=== PATIENT | male | born 1960 | race Caucasian/White ===

== ENCOUNTER → 2017-08-15 05:57 | Outpatient (CLI) | payer OTHER, SELFPAY ==
[2017-08-15 07:50] LABS: AST(SGOT) 24 U/L (15-37); Alanine Aminotransfer ALT/SGPT 52 U/L (16-61); Albumin, Serum 3.9 g/dL (3.2-5.0); Alkaline Phosphatase 75 U/L (45-117); Bilirubin, Direct 0.18 mg/dL (0.00-0.30); Cholesterol 112 mg/dL (200); High Density Lipoprotein 34 mg/dL; Protein, Total 6.9 g/dL (6.4-8.2); Triglycerides 155 mg/dL; Very Low Density Lipoprotein 31 mg/dL (5-40)
== END ==
PROVIDERS: Family Provider Family Medicine; PCP Family Medicine; Visit Provider Physician Assistant Medical
DX: E78.5 Hyperlipidemia, unspecified (principal); Z79.899 Other long term (current) drug therapy
CPT/HCPCS: 36415; 80061; 80076

== ENCOUNTER → 2018-07-06 07:07 | Outpatient (CLI) | payer OTHER, SELFPAY ==
[2018-06-19 16:16] VITALS: BMI 32.5
[2018-07-06 08:49] LABS: AST(SGOT) 20 U/L (15-37); Alanine Aminotransfer ALT/SGPT 57 U/L (16-61); Albumin, Serum 3.9 g/dL (3.2-5.0); Alkaline Phosphatase 73 U/L (45-117); Bilirubin, Direct 0.21 mg/dL (0.00-0.30); Cholesterol 115 mg/dL (200); High Density Lipoprotein 33 mg/dL; Protein, Total 6.9 g/dL (6.4-8.2); Triglycerides 109 mg/dL; Very Low Density Lipoprotein 22 mg/dL (5-40)
== END ==
PROVIDERS: Family Provider Family Medicine; PCP Family Medicine; Referring Provider Internal Medicine Cardiovascular Disease; Visit Provider Internal Medicine Cardiovascular Disease
DX: I25.10 Atherosclerotic heart disease of native coronary artery without angina pectoris (principal); I25.5 Ischemic cardiomyopathy; E78.00 Pure hypercholesterolemia, unspecified; I10 Essential (primary) hypertension; Z95.5 Presence of coronary angioplasty implant and graft
CPT/HCPCS: 36415; 80061; 80076

== ENCOUNTER → 2019-01-27 08:22 | Outpatient (CLI) | payer OTHER, SELFPAY ==
[2018-12-22 15:31] VITALS: BMI 32.2
[2019-01-27 11:57] LABS: AST(SGOT) 21 U/L (15-37); Alanine Aminotransfer ALT/SGPT 44 U/L (16-61); Albumin, Serum 4.1 g/dL (3.2-5.0); Alkaline Phosphatase 77 U/L (45-117); Bilirubin, Direct 0.21 mg/dL (0.00-0.30); Cholesterol 136 mg/dL (200); Globulin 3.2 g/dL (2.2-4.2); High Density Lipoprotein 40 mg/dL; Protein, Total 7.3 g/dL (6.4-8.2); Triglycerides 102 mg/dL; Very Low Density Lipoprotein 20 mg/dL (5-40)
== END ==
PROVIDERS: Family Provider Family Medicine; PCP Family Medicine; Referring Provider Internal Medicine Cardiovascular Disease; Visit Provider Internal Medicine Cardiovascular Disease
DX: E78.00 Pure hypercholesterolemia, unspecified (principal)
CPT/HCPCS: 36415; 80061; 80076

== ENCOUNTER → 2019-12-15 | Outpatient (CLI) | payer OTHER, SELFPAY ==
[2019-08-06 08:55] VITALS: BMI 32.6
[2019-12-15 08:53] LABS: AST(SGOT) 15 U/L (15-37); Alanine Aminotransfer ALT/SGPT 37 U/L (16-61); Alkaline Phosphatase 87 U/L (45-117); Cholesterol 147 mg/dL (200); Globulin 3.3 g/dL (2.2-4.2); High Density Lipoprotein 39 mg/dL; Protein, Total 7.3 g/dL (6.4-8.2); Triglycerides 163 mg/dL; Very Low Density Lipoprotein 33 mg/dL (5-40)
== END | disposition home or self-care (01) ==
LOC: LAB 07:26
PROVIDERS: PCP Family Medicine; Referring Provider Internal Medicine Cardiovascular Disease; Visit Provider Internal Medicine Cardiovascular Disease
DX: E78.00 Pure hypercholesterolemia, unspecified (principal)
CPT/HCPCS: 36415; 80061; 80076

== ENCOUNTER → 2024-03-16 | Outpatient (CLI) | payer OTHER, SELFPAY ==
[2024-03-16 09:21] LABS: ALB/GLOB Ratio 1.1 RATIO (0.9-2.4); AST(SGOT) 17 U/L (15-37); Alanine Aminotransfer ALT/SGPT 45 U/L (16-61); Albumin, Serum 3.8 g/dL (3.2-5.0); Alkaline Phosphatase 92 U/L (45-117); Anion Gap 5 (5-15); BUN 20 mg/dL (7-18); BUN/Creat Ratio 19.6 RATIO (10-20); Calcium,Total 9.3 mg/dL (8.5-10.1); Chloride 108 mmol/L (98-107); Cholesterol 142 mg/dL (200); Creatinine, Serum 1.02 mg/dL (0.70-1.30); EST Glomerular Filtration Rate 78 mL/min (>60); Est Glom Filt Rate - Afr Amer 95 mL/min (>60); Globulin 3.5 g/dL (2.2-4.2); Glucose 132 mg/dL (74-106); High Density Lipoprotein 44 mg/dL; Protein, Total 7.3 g/dL (6.4-8.2); Sodium Level 140 mmol/L (136-145); Triglycerides 92 mg/dL; Very Low Density Lipoprotein 18 mg/dL (5-40)
== END | disposition home or self-care (01) ==
LOC: LAB 08:02
PROVIDERS: PCP Family Medicine; Referring Provider Internal Medicine Cardiovascular Disease; Visit Provider Internal Medicine Cardiovascular Disease
DX: I25.10 Atherosclerotic heart disease of native coronary artery without angina pectoris (principal); I25.2 Old myocardial infarction; Z95.5 Presence of coronary angioplasty implant and graft; E66.9 Obesity, unspecified; I10 Essential (primary) hypertension
CPT/HCPCS: 36415; 80053; 80061

== ENCOUNTER → 2025-02-19 | Outpatient (CLI) | payer OTHER, SELFPAY ==
[2025-02-19 10:34] LABS: AST(SGOT) 31 U/L (<=37); Alanine Aminotransfer ALT/SGPT 73 U/L (<=46); Albumin, Serum 4.3 g/dL (3.4-4.8); Alkaline Phosphatase 88 U/L (40-129); Bilirubin, Direct 0.21 mg/dL (0.00-0.30); Cholesterol 139 mg/dL (<=200); Globulin 2.6 g/dL (2.2-4.2); Low Density Lipoprotein Calc. 86 mg/dL; Triglycerides 95 mg/dL; Very Low Density Lipoprotein 19 mg/dL (5-40); cholesterol:hdl ratio screen 3.96
== END | disposition home or self-care (01) ==
PROVIDERS: PCP Family Medicine; Referring Provider Internal Medicine Cardiovascular Disease; Visit Provider Internal Medicine Cardiovascular Disease
DX: I25.10 Atherosclerotic heart disease of native coronary artery without angina pectoris (principal); E78.00 Pure hypercholesterolemia, unspecified
CPT/HCPCS: 36415; 80061; 80076

== ENCOUNTER → 2025-03-04 | Outpatient (CLI) | payer OTHER, SELFPAY ==
--- OUTSIDE RECORDS SUMMARY | 2025-03-04 06:10 | XMS RPT_ITS | CCD ---
Author Organization [facility] Care Team Providers Care Chemical Packager Name Role Phone LATHA Cary, Ellen Viera Unavailable [phone] Dayna Ng Unavailable Unavailable Dayna Ng Unavailable Unavailable Severino Quiroga Unavailable Unavailable Severino Quiroga Unavailable Unavailable Raymond Lu MD Primary Care Provider [phone] Steven Duron Unavailable Raymond Lu MD Primary Care Provider Steven Duron Unavailable AA NO PCP, NO PCP Primary Care Unavailable HELSOUTH DO~[phone], EUGENIO Munoz Atten ding Unavailable HELSOUTH DO~[phone], EUGENIO Munoz Admit nena Unavailable LORAINE MCNEILL Attending Unavailable Unavailable Primary Care Provider Unavailsimone e Steven Duron MD Unavailable Raymond Lu MD Primary Care Provider Haagen LIGHT RAIL VEHICLE OPERATOR.Leah AMBRIZ Unavailable Suppan LIGHT RAIL VEHICLE OPERATOR.KATINA, Ayesha A Unavailable Suppan LIGHT RAIL VEHICLE OPERATOR.KATINA Ayesha A Unavailable Raymond Lu Referring Unavailable Raymond Lu Primary Care Unavailable Billy Alonso Attending Unavailable Billy Alonso Attending Unavailable Raymond Lu Primary Care Unavailable Billy Alonso Referring Unavailable RAYMOND LU Referring Unavailable RAYMOND LU Primary Care Unavailable RAYMOND MCCRAY JR Attending Unavailable RAYMOND MCCRAY JR Referring Unavailable RAYMOND LU Primary Care Unavailable RAYMOND LU Referring Unavailable RAYMOND LU Primary Care Unavailable RAYMOND LU Primary Care Unavailable STEFANIE MILLER Attending Unavailable RAYMOND LU Referring Unavailable RAYMOND LU Primary Care Unavailable RAMILA YOST Attending Unavailable RAYMOND LU Referring Unavailable RAYMOND LU Primary Care Unavailable RAYMOND LU Attending Unavailable RAYMOND LU Primary Care Unavailable RAYMOND LU Attending Unavailable Allergies Allergy Classification Reported Allergen(s) Allergy Type Date of Onset Reaction(s) Facility (5 sources) Angiotensin Converting Enzyme (Lauren) Inhibitors drug allergy 4 cough [facility] Work Phone: (4 sources) NKDA drug allergy 4 [facility] Work Phone: (17 sources) Lisinopril; Translations: [LISINOPRIL] Drug Allergy 4 Cough [facility] (4 sources) Lisinopril Propensity to adverse reactions 4 [facility] (1 source) Angiotensin Converting Enzyme (Lauren) Inhibitors Drug allergy (disorder) 4 [facility] Repository Medications Current Medications Medication Drug Class(es) Dates Sig (Normalized) Sig (Original) COMPOUNDED PRESCRIPTION (15 sources) Start: 08-27-2013 COMPOUNDED PRESCRIPTION Initiate bilevel @ 18/14 cm of water with back up rate of 12 with humidification mask (per patient preference) optional chin strap (if indicated) and lifetime supplies DX: ALEXANDRA 327.23 1 Device 0 08/27/2013 Active Comment on above: Initiate bilevel @ 1 8/14 cm of water with back up rate of 12 with humidification mask (per patient preference) optional chin strap (if indicated) and lifetime supplies DX: ALEXANDRA 327.23 [id number] 0.3 ml EPINEPHrine 1 mg/ml auto-injector (15 sources) alpha-Adrenergic Agonist, beta-Adrenergic Agonist, Catecholamine Start: 02-11-2021 EPINEPHrine (EPIPEN) 0.3 mg/0.3 mL auto-injector Indications: Allergy to yellow jackets Use as directed 2 Each 1 02/11/2021 Active Comment on above: Use as directed losartan potassium 100 mg oral tablet (20 sources) Angiotensin 2 Receptor Jacquelyn Start: 02-22-2023 take 1 tablet by mouth once daily losartan (COZAAR) 100 mg tablet Indications: Primary hypertension Take 1 tablet by mouth once daily. 90 tablet 3 02/22/2023 Active Start: 08-04-2020 End: 08-27-2021 take 1 tablet by mouth once daily losartan (COZAAR) 100 mg tablet Indications: Primary hypertension Take 1 tablet by mouth once daily. 90 tablet 3 08/27/2021 Active Start: 06-18-2013 take 1 tablet by greg th twice daily COZAAR 25 MG TABS One tablet by mouth twice daily LOSARTAN POTASSIUM [id number] Steven Duron MD Start: 05-08-2013 take 1 tablet by greg th once daily COZAAR 25 MG TABS One tablet by mouth daily LOSARTAN POTASSIUM [id number] Steven Duron MD Comment on above: Take 1 tablet by greg th once daily. molnupiravir 200 mg capsule (2 sources) Start: 05-20-19 End: 05-25-19 take 4 capsules by mouth twice daily molnupiravir 200 mg capsule Indications: COVID-19 Take 4 capsules by mouth two times a day for 5 days. 40 capsule 0 05/20/2023 05/25/2023 Active Comment on above: Take 4 capsules by m outh two times a day for 5 days. sertraline 100 mg oral tablet (20 sources) Serotonin Reuptake Inhibitor Start: 08-06-19 End: 12-17-19 take 1 tablet by mouth once daily sertraline (ZOLOFT) 100 mg tablet Take 1 tablet by mouth once daily. Currently working with provider on adjustments 30 tablet 2 08/21/2024 11/19/2024 Active Comment on above: Take 100 mg by mouth . Take 100 mg by mouth once daily. Currently working with provider on adjustments zolpidem tartrate 10 mg oral tablet (4 sources) gamma-Aminobutyric Acid-ergic Agonist Start: 04-29-19 End: 12-22-19 take 1 tablet by mouth at bedtime Ambien 10 MG tablet 1 tablet at bedtime prior to sleep study at facility Orally as directed for 1 days 04/29/2022 12/22/2023 Discontinued Completed/Discontinued Medications Medication Drug Class(es) Dates Sig (Normalized) Sig (Original) acetaminophen 250 mg / aspirin 250 mg / caffeine 65 mg oral tablet (8 sources) Nonsteroidal Anti-inflammatory Drug, Central Nervous System Stimulant, Methylxanthine Start: 04-26-2013 End: 04-12-2014 EXCEDRIN EXTRA STRENGTH 250-250-65 MG TABS As needed ASPIRIN-ACETAMINO PHEN-CAFFEINE [id number] Steven Duron MD Start: 04-26-2013 EXCEDRIN EXTRA STRENGTH 250-250-65 MG TABS As needed [id number] Steven Duron MD Start: 04-26-2013 End: 04-12-2014 EXCEDRIN EXTRA STRENGTH 250- 250-65 MG TABS As needed [id number] Steven Duron MD aspirin 325 mg oral tablet (20 sources) Nonsteroidal Anti-inflammatory Drug Start: 04-26-2013 take 1 tablet by mouth once daily ASPIRIN 325 MG TABS One tablet by mouth daily ASPIRIN [id number] Steven Duron MD aspirin 325 mg t ablet Take 81 mg by mouth once daily. Changed by cardiology Active take 1 tablet by mouth once sorin y aspirin 81 MG EC tablet Take 81 mg by mouth Daily Active Comment on above: Take 325 mg by mouth once daily. Take 81 mg by mouth once daily. Changed by cardiology ASPIRIN-ACETAMINOPHEN -CAFFEINE (2 sources) Start: 04-26-2013 End: 04-12-2014 EXCEDRIN EXTRA STRENGTH 250-250-65 MG TABS As needed [id number] FFEINE [id number] Steven Duron MD Start: 04-26-2013 EXCEDRIN EXTRA STRENGTH 250-250-65 MG TABS As needed [id number] Steven Duron MD atorvastatin 40 mg oral tablet (20 sources) HMG-CoA Reductase Inhibitor Start: 04-18-2013 take 1 tablet by mouth once daily ATORVASTATIN CALCIUM 40 MG TABS One tablet by mouth daily ATORVASTATIN CALCIUM [id number] Steven Duron MD Comment on above: Take 40 mg by mouth once daily. clopidogrel 75 mg oral tablet (20 sources) P2Y12 Platelet Inhibitor Start: 04-18-2013 take 1 tablet by mouth once daily PLAVIX 75 MG TABS One tablet by mouth daily CLOPIDOGREL BISULFATE [id number] Mil Wheat Shellie MCCAULEY Comment on above: Take 75 mg by mouth once daily. enalapril maleate 5 mg oral tablet (10 sources) Angiotensin Converting Enzyme Inhibitor Start: 04-18-2013 End: 05-08-2013 take 1 tablet by mouth twice daily VASOTEC 5 MG TABS One tablet by mouth twice daily ENALAPRIL MALEATE [id number] Alyssa Chun RN gabapentin 300 mg oral capsule (11 sources) Anti-epileptic Agent Start: 04-12-2014 GABAPENTIN 300 MG CAPS 1-3 tablets by mouth @ night GABAPENTIN [id number] Steven Duron MD Comment on above: Take 300 mg by mouth daily at bedtime. 100-300 each night per [facility] ibuprofen 200 mg oral capsule (10 sources) Nonsteroidal Anti-inflammatory Drug Start: 04-26-2013 End: 04-12-2014 ADVIL 200 MG CAPS as needed takes 2-4 daily IBUPROFEN [id number] Steven Duron MD Start: 04-26-2013 End: 04-12-2014 ADVIL 200 MG CAPS as needed takes 2-4 daily IBUPROFEN [id number] Steven Duron MD metoprolol tartrate 25 mg oral tablet (20 sources) beta-Adrenergic Jacquelyn Start: 04-26-2013 take 1 tablet by mouth twice daily METOPROLOL TARTRATE 25 MG TABS One tablet by mouth twice daily METOPROLOL TARTRATE [id number] Steven Duron MD metoprolol tartr ate, short acting, 25 mg tablet Take 50 mg by mouth two times a day. Dr Alonso adjusted Active take 1 tablet by mouth in the mo rning metoprolol tartrate (Lopressor) 50 MG tablet Take 50 mg by mouth in the morning and 50 mg before bedtime. Active Comment on above: Take 25 mg by mouth twice daily. Take 50 mg by mouth two times a day. Dr Alonso adjusted nitroglycerin 0.4 mg sublingual tablet (10 sources) Nitrate Vasodilator Start: 04-26-2013 NITROSTAT 0.4 MG SUBL 1 tablet under tongue every 5 min up to 3 X NITROGLYCERIN [id number] Steven Duron MD Problems Active Problems Problem Classification Problem Date Documented Da te Episodic/Chronic Coronary atherosclerosis and other heart disease (20 sources) Generalized ischemic myocardial dysfunction; Translations: [Atherosclerotic heart disease of tolowa dee-ni' coronary artery without angina pectoris] Onset: 12-28-2013 04-16-2016 Chronic Coronary atherosclerosis and other heart disease (1 source) Presence of coronary angioplasty implant and graft; Translations: [Presence of coronary angioplasty implant and graft] Onset: 10-16-2024 Episodic Diabetes mellitus without complication (1 source) Hyperglycemia; Translations: [Hyperglycemia, unspecified] 11-21-2023 Episodic Disorders of lipid metabolism (20 sources) Hyperlipidemia; Translations: [Hyperlipidemia, unspecified] Onset: 04-26-2013 04-26-2013 Chronic Essential hypertension (20 sources) Essential hypertension; Translations: [Essential (primary) hypertension] Onset: 12-28-2013 Chronic Immunizations and screening for infectious disease (7 sources) Patient encounter status; Translations: [Encounter for immunization] Episodic Other ear and sense organ disorders (2 sources) Bilateral hearing loss; Translations: [Unspecified hearing loss, bilateral] 06-01-2024 Chronic Other hereditary and degenerative nervous system conditions (19 sources) Restless legs; Translations: [Restless legs syndrome] Onset: 04-04-2017 Chronic Other hereditary and degenerative nervous system conditions (1 source) Restless legs syndrome; Translations: [RLS (restless legs syndrome)] Onset: 02-11-2021 Chronic Other lower respiratory disease (4 sources) Cough; Translations: [Cough, unspecified type] Episodic Other nutritional; endocrine; and metabolic disorders (1 source) Obesity, unspecified; Translations: [Obesity, unspecified] Onset: 10-16-2024 Chronic Other screening for suspected conditions (not mental disorders or infectious disease) (4 sources) Encounter for screening for malignant neoplasm of prostate; Translations: [Elevated prostate specific antigen [PSA]] Onset: 11-21-2023 Episodic Peripheral and visceral atherosclerosis (5 sources) Peripheral vascular disease; Translations: [Peripheral vascular disease, unspecified] Onset: 06-08-2013 06-08-2013 Chronic Residual codes; unclassified (19 sources) Sleep apnea; Translations: [Sleep apnea, unspecified] Onset: 12-28-2013 Chronic Residual codes; unclassified (2 sources) Obstructive sleep apnea syndrome; Translations: [Obstructive sleep apnea (adult) (pediatric)] 12-22-2023 Chronic Residual codes; unclassified (1 source) Obstructive sleep apnea (adult) (pediatric); Translations: [ALEXANDRA treated with BiPAP] Onset: 12-17-2024 Chronic Residual codes; unclassified (1 source) Sleep apnea, unspecified; Translations: [Sleep apnea, unspecified type] Onset: 03-22-2023 Chronic Residual codes; unclassified (2 sources) Insomnia; Translations: [Insomnia, unspecified] 12-22-2023 Episodic Unclassified (5 sources) Body mass index (BMI) 30.0-30.9, adult; Translations: [Body mass index (BMI) 30.0-30.9, adult] Onset: 04-26-2013 04-26-2013 Chronic Unclassified (2 sources) Percutaneous transluminal coronary angioplasty ; Translations: [Coronary angioplasty status] Onset: 04-18-2013 04-18-2013 Unclassified (12 sources) Long-term drug therapy; Translations: [Long-term (current) use of other medications] Onset: 05-03-2013 Resolved: 01-13-2015 01-13-2015 Viral infection (1 source) Disease caused by 2019-nCoV; Translations: [COVID-19] 05-20-2023 Episodic Past or Other Problems Problem Classification Problem Date Documented Da te Episodic/Chronic Allergic reactions (15 sources) Allergy to yellow jacket venom; Translations: [Bee allergy status] Onset: 02-11-2021 02-11-2021 Episodic Coronary atherosclerosis and other heart disease (5 sources) History of myocardial infarction; Translations: [Old myocardial infarction] Onset: 04-18-2013 04-18-2013 Episodic Nonspecific chest pain (10 sources) Chest pain, unspecified; Translations: [Chest pain, unspecified] Onset: 04-18-2013 Resolved: 04-16-2016 04-16-2016 Episodic Other aftercare (3 sources) Long-term (current) use of other medications; Translations: [Other lobsterman (current) drug therapy] Onset: 05-03-2013 Resolved: 01-13-2015 01-13-2015 Episodic Other nutritional; endocrine; and metabolic disorders (6 sources) Body mass index (BMI) 29.0-29.9, adult; Translations: [Body mass index (BMI) 29.0-29.9, adult] Onset: 04-26-2013 10-11-2014 Episodic Unclassified (11 sources) Body mass index (BMI) 27.0-27.9, adult; Translations: [Body mass index (BMI) 29.0-29.9, adult] Onset: 04-26-2013 09-06-2013 Episodic Unclassified (8 sources) FH: Hypertension; Translations: [Body mass index (BMI) 28.0-28.9, adult] Onset: 04-26-2013 12-10-2013 Episodic Results Test Name Value Interpretation Reference Range Facility CNOVon 12-18-2024 CNOV Office Visit (UROLWS ) SILVIATUAN Rodrigues ([id number]) 1960 M Date Time Provider Department 12/18/24 11:00 AM RAMILA YOST UROLTAYA During your visit today, we recorded the following information about you: Thalia Lu LPN 12/18/2024 2:25 PM Signed Verified name and date of . CC Post Void Residual HPI: Tuan Vega is a 64 year old male. The patient is here now for an appointment with TATI Allen MT, PA-COV. Procedure: Explained procedure to patient and verbalizes understanding. Performed a PVR. Patient urinated and instructed to empty bladder as much as possible just prior to having PVR done using bladder ultrasound scanner. Results of scan: >14 mL The patient tolerated the procedure well. Plan: Appointment with Ramila Maya PA-C 12/18/2024 2:25 PM Signed [facility] NEW PATIENT CLINIC NOTE (M) Note was generated by [employer] and edited as appropriate SERVICE DATE: December 18, 2024 NAME: Tuan Vega GENDER: male CHIEF COMPLAINT: The patient is a 64-year-old male with coronary artery disease status post stent placement and obstructive sleep apnea, presenting for evaluation of an elevated PSA. HISTORY OF PRESENT ILLNESS: The patient is a 64-year-old male with coronary artery disease status post stent placement and obstructive sleep apnea, presenting for evaluation of an elevated PSA. Elevated PSA: - Recent PSA level of 2.64, up from 1.64 a year ago. - Denies known family history of prostate cancer. - Reports recent urinary urgency. - Noted darker, malodorous urine when dehydrated. Coronary Artery Disease: - History of a cardiac event 10-11 years ago, treated with a stent. - Currently taking metoprolol. Obstructive Sleep Apnea: - Diagnosed with severe ALEXANDRA, managed with BiPAP. - Reports significant reduction in nocturia since starting BiPAP, from 6-7 times per night to once per night. > We discussed the common causes of urinary frequency and urgency, and restricting water intake In hopes to mitigate the need to urinate, we discussed how this behavior more often worsen the problem not improving it, > We discussed increasing daily water intake to 64-84 oz 7a -7p and try to reduce bladder irritants, caffeine, alcohol and acid foods and drink. > Bladder irritants handout available to patient. LABS: PSA Screening (ng/mL) Date Value 12/14/2024 2.64 11/21/2023 1.58 06/12/2013 0.53 No results found for: TESTOST Hematocrit (%) Date Value 12/14/2024 45.3 11/21/2023 41.9 03/25/2022 43.0 07/30/2020 42.5 02/19/2015 41.1 PSA Screening (ng/mL) Date Value 12/14/2024 2.64 11/21/2023 1.58 06/12/2013 0.53 Creatinine Date Value Ref Range Status 12/14/2024 0.93 0.73 - 1.22 mg/dL Final 11/21/2023 0.97 0.73 - 1.22 mg/dL Final 03/25/2022 0.93 0.73 - 1.22 mg/dL Final MEDICATIONS: CPAP/BIPAP/OTHER Auto biPAP IPAP max 20, EPAP min 10, PS 4 cmH2O [facility] aspirin, enteric coated (ASPIRIN, ENTERIC COATED) 81 mg EC tablet Take 81 mg by mouth once daily. sertraline (ZOLOFT) 100 mg tablet Take 1 tablet by mouth once daily. Currently working with provider on adjustments losartan (COZAAR) 100 mg tablet Take 1 tablet by mouth once daily. EPINEPHrine (EPIPEN) 0.3 mg/0.3 mL auto-injector Use as directed clopidogrel 75 mg tablet Take 75 mg by mouth once daily. atorvastatin 40 mg tablet Take 40 mg by mouth once daily. metoprolol tartrate, short acting, 25 mg tablet Take 50 mg by mouth two times a day. Dr Alonso adjusted PAST MEDICAL HISTORY: PAST MEDICAL HISTORY Diagnosis Date CAD (coronary artery disease) Dr. Duron HTN (hypertension) Hyperlipidemia Lung nodule unchanged in over 2 years ALEXANDRA (obstructive sleep apnea) Bipap ALEXANDRA treated with BiPAP RLS (restless legs syndrome) PAST SURGICAL HISTORY: PAST SURGICAL HISTORY Procedure Laterality Date STENT PLACEMENT Mar 2013 right coronary artery FAMILY HISTORY: FAMILY HISTORY Problem Relation Age of Onset Hypertension Mother Hypertension Father Obstructive Sleep Apnea Father No Known Problems Sister No Known Problems Brother No Known Problems Brother Hypertension Maternal Grandmother No Known Problems Maternal Grandfather No Known Problems Paternal Grandmother Glaucoma Paternal Grandfather SOCIAL HISTORY: Social Connections: Unknown (05/20/2023) Social Connection and Isolation Panel Frequency of Communication with Friends and Family: More than three times a week Frequency of Social Gatherings with Friends and Family: Three times a week Attends [employer] Services: Patient declined Active Member of Clubs or Organizations: Patient declined Attends Club or Organization Meetings: Patient declined Marital Status: REVIEW OF SYSTEMS: Ge (more content not included)... Normal [facility] CNOVon 12-17-2024 CNOV Office Visit (SLEWST ) TUAN VEGA ([id number]) 1960 M Date Time Provider Department 12/17/24 9:00 AM STEFANIE MILLER During your visit today, we recorded the following information about you: Pulse Respiration Blood pressure Weight 79/minute 16/minute 127/75 109.3 kg Stefanie Miller APRN.STONECUTTER ASSISTANT 12/17/2024 10:15 AM Addendum [facility] New Patient Evaluation PATIENT NAME: Tuan Vega DATE OF SERVICE: December 16, 2024 Recording using ambient AI software for draft documentation of the visit was discussed with the patient/authorized customer retention representative; all questions welcomed and answered. Patient/authorized customer retention representative agreed to proceed CONSULTING PROVIDER: No referring provider defined for this encounter. REASON FOR VISIT: ALEXANDRA HPI: The patient is a 64-year-old male with a history of severe ALEXANDRA, presenting for an annual visit to obtain biPAP supplies. His Sleep physician retired. The patient has been using an auto biPAP machine with a full face mask nightly, averaging 9 hours and 18 minutes of use per night. He reports significant improvement in sleep quality, noting a reduction in nocturnal awakenings from 5-6 times per night to once per night since starting PAP therapy about 10 yrs ago. He denies any issues with the current PAP settings and is accustomed to the equipment, stating, I use it every day, I even take a nap with it. He inquires about the replacement schedule for PAP machines, noting that his current machine is not yet 5 years old. He hopes not to need another diagnostic study, had one in the last few years with prior [facility], found it extremely difficult to sleep w/o PAP. Previously had biPAP ST, now has auto biPAP. The patient has a history of RLS. Initially diagnosed with PLMs during a sleep study. No issue with nocturnal leg movements at home. He reports experiencing discomfort in his legs, particularly during long car rides and flights, which necessitates movement for relief. Compression socks and being able to recline and stretch out his legs on a flight have helped. He has been taking sertraline 100 mg at bedtime, prescribed for active mind, and expresses a desire to reduce the dosage. He also mentions previous use of gabapentin, which he discontinued due to grogginess, especially when taken with metoprolol. He has been consistently taking a magnesium supplement, Breakthrough Magnesium, daily, as recommended by a chiropractor for back pain. The patient denies excessive daytime sleepiness, sleep paralysis, sleep hallucinations, or acting out dreams. Patient Questionnaires Sleep Scores 05/20/2023 PROMIS Global Health - (T-Scores - the mean of general population = 50. Five points is a clinically meaningful difference.) Physical T-Score 44.9 Mental T-Score 53.3 PAST TREATMENTS: biPAP IPAP max 20, EPAP min 10, PS 4 cmH2O DME just switched from [facility] to [facility] Residual AHI 0.8 Uses 9.25 hrs every night Used 30 out of last 30 days See scanned copy of compliance report in chart PRIOR SLEEP STUDIES: 07/19/13 PSG: AHI 41.8 (1/3 of events were central per Dr Mccray's reread back in 2013) 07/31/13 PAP titration: switched to biPAP due to CPAP intolerance, start with biPAP ST 18/14 cmH2O with BUR 12 but might need increased PAST MEDICAL HISTORY Diagnosis Date CAD (coronary artery disease) Dr. Duron HTN (hypertension) Hyperlipidemia Lung nodule unchanged in over 2 years ALEXANDRA (obstructive sleep apnea) Bipap PAST SURGICAL HISTORY Procedure Laterality Date STENT PLACEMENT Mar 2013 right coronary artery ACTIVE PROBLEM LIST Cad (Coronary Artery Disease) Htn (Hypertension) Hyperlipidemia Alexandra Treated With Bipap Rls (Restless Legs Syndrome) Allergy to Yellow Jackets Allergies As of Date: 12/17/2024 Allergen Noted Reaction LISINOPRIL 06/25/2013 Cough Fully Assessed 12/17/2024 CURRENT MEDICATIONS: aspirin, enteric coated (ASPIRIN, ENTERIC COATED) 81 mg EC tablet Take 81 mg by mouth once daily. sertraline (ZOLOFT) 100 mg tablet Take 1 tablet by mouth once daily. Currently working with provider on adjustments losartan (COZAAR) 100 mg tablet Take 1 tablet by mouth once daily. EPINEPHrine (EPIPEN) 0.3 mg/0.3 mL auto-injector Use as directed clopidogrel 75 mg tablet Take 75 mg by mouth once daily. atorvastatin 40 mg tablet Take 40 mg by mouth once daily. metoprolol tartrate, short acting, 25 mg tablet Take 50 mg by mouth two times a day. Dr Alonso adjusted CPAP/BIPAP/OTHER Auto biPAP IPAP max 20, EPAP min 10, PS 4 cmH2O [facility] Review of Systems Constitutional: (-) insomnia, (-) excessive daytime sleepiness Neurological: (+) restless legs, (-) dream enactment behavior, (-) sleep paralysis, (-) sleep-related hallucinations Genitourinary: (+) nocturia SOCIAL (more content not included)... Normal [facility] 12-17-2024 [facility] Telephone (SLEWST) TUAN VEGA ([id number]) 1960 M Date Time Provider Department 12/17/24 STEFANIE MILLER During your visit today, we recorded the following information about you: Sarah Martinez LPN 12/17/2024 9:44 AM Signed Called [facility] and requested Sleep Study results completed by them. Will be faxing results to us. MAYRA Cortes Barbara, LPN 12/17/2024 10:03 AM Signed Received [facility] sleep study results. Scanned into Pt chart. Sarah Martinez LPN Allergies As of Date: 12/17/2024 Noted Allergy Reaction LISINOPRIL 06/25/2013 3 - Cough Comments: LAUREN cough Date Reviewed: 12/17/2024 Reviewed by: Sarah Martinez LPN - Fully Assessed Reason for Visit: Results [95] Cmt: [facility] Sleep Study Prescriptions as of 12/17/2024 - CPAP/BIPAP/OTHER Auto biPAP IPAP max 20, EPAP min 10, PS 4 cmH2O [facility] - aspirin, enteric coated (ASPIRIN, ENTERIC COATED) 81 mg EC tablet Take 81 mg by mouth once daily. - sertraline (ZOLOFT) 100 mg tablet Take 1 tablet by mouth once daily. Currently working with provider on adjustments - losartan (COZAAR) 100 mg tablet Take 1 tablet by mouth once daily. - EPINEPHrine (EPIPEN) 0.3 mg/0.3 mL auto-injector Use as directed - clopidogrel 75 mg tablet Take 75 mg by mouth once daily. - atorvastatin 40 mg tablet Take 40 mg by mouth once daily. - metoprolol tartrate, short acting, 25 mg tablet Take 50 mg by mouth two times a day. 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 Telephone (SLEWST) TUAN VEGA ([id number]) 1960 Date Time Provider Department 12/17/24 STEFANIE MILLER During your visit today, we recorded the following information about you: Sarah Martinez LPN 12/17/2024 1:19 PM Signed Faxed mask/supply order to [facility]. Sarah Martinez LPN Allergies As of Date: 12/17/2024 Noted Allergy Reaction LISINOPRIL 06/25/2013 3 - Cough Comments: LAUREN cough Date Reviewed: 12/17/2024 Reviewed by: Sarah Martinez LPN - Fully Assessed Prescriptions as of 12/17/2024 - CPAP/BIPAP/OTHER Auto biPAP IPAP max 20, EPAP min 10, PS 4 cmH2O [facility] - aspirin, enteric coated (ASPIRIN, ENTERIC COATED) 81 mg EC tablet Take 81 mg by mouth once daily. - sertraline (ZOLOFT) 100 mg tablet Take 1 tablet by mouth once daily. Currently working with provider on adjustments - losartan (COZAAR) 100 mg tablet Take 1 tablet by mouth once daily. - EPINEPHrine (EPIPEN) 0.3 mg/0.3 mL auto-injector Use as directed - clopidogrel 75 mg tablet Take 75 mg by mouth once daily. - atorvastatin 40 mg tablet Take 40 mg by mouth once daily. - metoprolol tartrate, short acting, 25 mg tablet Take 50 mg by mouth two times a day. 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 Please set him up with urology Rest of labs are ok Estelle Gutierrez LPN 12/17/2024 8:37 AM Signed LEFT MESSAGE FOR PATIENT TO CALL BACK /Suzanne Christensen LPN, RN 12/17/2024 1:58 PM Signed Patient notified of results and provider's instructions. Patient verbalizes understanding. Suzanne Mason RN Allergies As of Date: 12/15/2024 Noted Allergy Reaction LISINOPRIL 06/25/2013 3 - Cough Comments: LAUREN cough Date Reviewed: 12/14/2024 Reviewed by: Marilia Jara LPN - Fully Assessed Reason for Visit: Results [95] Primary Visit Diagnosis:Elevated PSA [R97.20] Order(s):CONSULT TO UROLOGY [9041] Order #: [id number]: 1 FUTURE Prescriptions as of 12/17/2024 - CPAP/BIPAP/OTHER Auto biPAP IPAP max 20, EPAP min 10, PS 4 cmH2O [facility] - aspirin, enteric coated (ASPIRIN, ENTERIC COATED) 81 mg EC tablet Take 81 mg by mouth once daily. - sertraline (ZOLOFT) 100 mg tablet Take 1 tablet by mouth once daily. Currently working with provider on adjustments - losartan (COZAAR) 100 mg tablet Take 1 tablet by mouth once daily. - EPINEPHrine (EPIPEN) 0.3 mg/0.3 mL auto-injector Use as directed - clopidogrel 75 mg tablet Take 75 mg by mouth once daily. - atorvastatin 40 mg tablet Take 40 mg by mouth once daily. - metoprolol tartrate, short acting, 25 mg tablet Take 50 mg by mouth two times a day. 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] 02/11/2021 Encounter Status:Closed by SUZANNE MASON on 12/17/24 Normal [facility] CBC W Auto Differential pane l (Bld)on 12-14-2024 Basophils (Bld) [#/Vol] 0.03 10*3/uL Normal <0.11 [facility] Comment on above: Order Comment: Speci men Type: BLOOD SPECIMENOrdering Facility: [facility] Address: [address] [place] [address] [place] [address] Performed By: #### 5 7021-8 ####[facility] LABCLIA [id number] [place] [address] [place] Basophils/100 WBC (Bld) 0.3 % Normal [facility] Comment on above: Order Comment: Speci men Type: BLOOD SPECIMENOrdering Facility: [facility] Address: [address] [place] [address] Performed By: #### 5 7021-8 ####[facility] LABCLIA [id number] [place] [address] [place] Differential cell count method Nom (Bld) Auto Normal [facility] Comment on above: Order Comment: Speci men Type: BLOOD SPECIMENOrdering Facility: [facility] Address: [address] [place] [address] Performed By: #### 5 7021-8 ####[facility] LABCLIA [id number] [place] [address] [place] Eosinophils (Bld) [#/Vol] 0.11 10*3/uL Normal <0.46 [facility] Comment on above: Order Comment: Speci men Type: BLOOD SPECIMENOrdering Facility: [facility] Address: [address] [place] [address] Performed By: #### 5 7021-8 ####[facility] LABCLIA [id number] [place] [address] [place] Eosinophils/100 WBC (Bld) 1.1 % Normal [facility] Comment on above: Order Comment: Speci men Type: BLOOD SPECIMENOrdering Facility: [facility] Address: [address] [place] [address] Performed By: #### 5 7021-8 ####[facility] LABCLIA [id number] [place] [address] [place] Erythrocyte distribution width (RBC) [Ratio] 12.7 % Normal 11.5-15.0 [facility] Comment on above: Order Comment: Speci men Type: BLOOD SPECIMENOrdering Facility: [facility] Address: [address] [place] [address] Performed By: #### 5 7021-8 ####[facility] LABCLIA [id number] [place] [address] [place] Hematocrit (Bld) [Volume fraction] 45.3 % Normal 39.0-51.0 [facility] Comment on above: Order Comment: Speci men Type: BLOOD SPECIMENOrdering Facility: [facility] Address: [address] [place] [address] Performed By: #### 5 7021-8 ####[facility] LABIA [id number] [place] [address] [place] Hemoglobin (Bld) [Mass/Vol] 15.1 g/dL Normal 13.0-17.0 [facility] Comment on above: Order Comment: Speci men Type: BLOOD SPECIMENOrdering Facility: [facility] Address: [address] [place] [address] Performed By: #### 5 7021-8 ####[facility] LABIA [id number] [place] [address] [place] Immature granulocytes (Bld) [#/Vol] 0.07 10*3/uL Normal <0.10 [facility] Comment on above: Order Comment: Speci men Type: BLOOD SPECIMENOrdering Facility: [facility] Address: [address] [place] [address] Performed By: #### 5 7021-8 ####[facility] LABIA [id number] [place] [address] [place] Immature granulocytes/100 WBC (Bld) 0.7 % Normal [facility] Comment on above: Order Comment: Speci men Type: BLOOD SPECIMENOrdering Facility: [facility] Address: [address] [place] [address] Performed By: #### 5 7021-8 ####[facility] LABIA [id number] [place] [address] [place] Lymphocytes (Bld) [#/Vol] 1.92 10*3/uL Normal 1.00-4.00 [facility] Comment on above: Order Comment: Speci men Type: BLOOD SPECIMENOrdering Facility: [facility] Address: [address] [place] [address] Performed By: #### 5 7021-8 ####[facility] LABIA [id number] [place] [address] [place] Lymphocytes/100 WBC (Bld) 19.4 % Normal [facility] Comment on above: Order Comment: Speci men Type: BLOOD SPECIMENOrdering Facility: [facility] Address: [address] [place] [address] Performed By: #### 5 7021-8 ####[facility] [id number] [place] [address] [place] MCH (RBC) [Entitic mass] 30.4 pg Normal 26.0-34.0 [facility] Comment on above: Order Comment: Speci men Type: BLOOD SPECIMENOrdering Facility: [facility] Address: [address] [place] [address] Performed By: #### 5 7021-8 ####[facility] [id number] [place] [address] [place] MCHC (RBC) [Mass/Vol] 33.3 g/dL Normal 30.5-36.0 [facility] Comment on above: Order Comment: Speci men Type: BLOOD SPECIMENOrdering Facility: [facility] Address: [address] [place] [address] Performed By: #### 5 7021-8 ####[facility] [id number] [place] [address] [place] MCV (RBC) [Entitic vol] 91.3 fL Normal 80.0-100.0 [facility] Comment on above: Order Comment: Speci men Type: BLOOD SPECIMENOrdering Facility: [facility] Address: [address] [place] [address] Performed By: #### 5 7021-8 ####[facility] LABCLIA [id number] [facility] [address] [place] [address] [place] Monocytes (Bld) [#/Vol] 0.91 10*3/uL High <0.87 [facility] Comment on above: Order Comment: Speci men Type: BLOOD SPECIMENOrdering Facility: [facility] Address: [address] [place] [address] Performed By: #### 5 7021-8 ####[facility] LABCLIA [id number] [facility] [address], [facility] [place] Monocytes/100 WBC (Bld) 9.2 % Normal [facility] Comment on above: Order Comment: Speci men Type: BLOOD SPECIMENOrdering Facility: [facility] Address: [address] [place] [address] Performed By: #### 5 7021-8 ####[facility] LABCLIA [id number] [place] [address] [place] Neutrophils (Bld) [#/Vol] 6.87 10*3/uL Normal 1.45-7.50 [facility] Comment on above: Order Comment: Speci men Type: BLOOD SPECIMENOrdering Facility: [facility] Address: [address] [place] [address] Performed By: #### 5 7021-8 ####[facility] LABCLIA [id number] [facility] [address], [facility] [place] Neutrophils/100 WBC (Bld) 69.3 % Normal [facility] Comment on above: Order Comment: Speci men Type: BLOOD SPECIMENOrdering Facility: [facility] Address: [address] [place] [address] Performed By: #### 5 7021-8 ####[facility] LABCLIA [id number] [facility] [address], [facility] [place] Nucleated RBC (Bld) [#/Vol] 10*3/uL Normal <0.01 [facility] Comment on above: Order Comment: Speci men Type: BLOOD SPECIMENOrdering Facility: [facility] Address: [address] [place] [address] Performed By: #### 5 7021-8 ####[facility] LABCLIA [id number] [address] [address] [place] Nucleated RBC/100 WBC (Bld) [Ratio] 0.0 /100 WBC Normal [facility] Comment on above: Order Comment: Speci men Type: BLOOD SPECIMENOrdering Facility: [facility] Address: [address] [place] [address] Performed By: #### 5 7021-8 ####[facility] LABCLIA [id number] [address] [place] [address] [place] Platelet mean volume (Bld) [Entitic vol] 9.9 fL Normal 9.0-12.7 [facility] Comment on above: Order Comment: Speci men Type: BLOOD SPECIMENOrdering Facility: [facility] Address: [address] [place] [address] Performed By: #### 5 7021-8 ####[facility] LABIA [id number] [address] [place] [address] [place] Platelets (Bld) [#/Vol] 288 10*3/uL Normal 150-400 [facility] Comment on above: Order Comment: Speci men Type: BLOOD SPECIMENOrdering Facility: [facility] Address: [address] [place] [address] Performed By: #### 5 7021-8 ####[facility] LABCLIA [id number] [address] [address] [place] RBC (Bld) [#/Vol] 4.96 10*6/uL Normal 4.20-6.00 [facility] Comment on above: Order Comment: Speci men Type: BLOOD SPECIMENOrdering Facility: [facility] Address: [address] [id number] Performed By: #### 5 7021-8 ####[facility] LABIA [id number] [place] [id number] [place] WBC (Bld) [#/Vol] 9.91 10*3/uL Normal 3.70-11.00 [facility] Comment on above: Order Comment: Speci men Type: BLOOD SPECIMENOrdering Facility: [facility] Address: [address] [place] [address] Performed By: #### 5 7021-8 ####[facility] LABIA [id number] [place] [id number] [place] CNCOon 12-14-2024 CNCO Letter Text Normal [facility] CNOVon 12-14-2024 CNOV Office Visit (FAMPWS ) TUAN VEGA ([id number]) 1960 M Date Time Provider Department 12/14/24 10:40 AM [facility] During your visit today, we recorded the following information about you: Pulse Blood pressure Weight 76/minute 106/72 109.3 kg Raymond Lu MD 12/14/2024 11:16 AM Signed We discussed your overall health and current management plan: - Blood Work: I ordered a CBC, CMP, and PSA. These do not require fasting, so you can complete them today if you?d like. Once I receive the results, I will notify you. - Cologuard: You are due for another Cologuard test, as your last one was three years ago. I have placed the order for this. - Medications: - I sent in a refill for sertraline, as you feel it is working well for your restless legs and you are not experiencing any side effects. - Continue taking atorvastatin, aspirin, and Plavix as prescribed. Let me know if you experience any side effects, such as muscle aches from atorvastatin. - Sleep Apnea: Continue using your BiPAP machine, as it seems to be working well and helping you sleep. 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 Your blood pressure looks good, and your cholesterol was checked within the last year and is stable. Follow-Up Plan: - I will see you back in six months for a routine checkup unless any issues arise before then. Please let me know if you have any new concerns or symptoms before your next visit. Raymond Lu MD 12/14/2024 12:58 PM Signed The patient is a 64-year-old male with heart disease, hyperlipidemia, obstructive sleep apnea, and restless legs syndrome, presenting for routine follow-up and laboratory evaluation. HPI Coronary Artery Disease: - No angina, dyspnea, dizziness, or lightheadedness. - Following with cardiology. - Luís is taking aspirin and Plavix. Hyperlipidemia: - No myalgias from atorvastatin. Obstructive Sleep Apnea: - Using BiPAP with good adherence and effective sleep. Restless Leg Syndrome: - Managed with sertraline; no side effects reported. - Previous provider retired; Luís is requesting refill. Colorectal Cancer Screening: - Last Cologuard test was 3 years ago. MEDICATIONS: Current Outpatient Medications Medication Sig aspirin, enteric coated (ASPIRIN, ENTERIC COATED) 81 mg EC tablet Take 81 mg by mouth once daily. losartan (COZAAR) 100 mg tablet Take 1 tablet by mouth once daily. EPINEPHrine (EPIPEN) 0.3 mg/0.3 mL auto-injector Use as directed COMPOUNDED PRESCRIPTION Initiate bilevel @ 18/14 cm of water with back up rate of 12 with humidification mask (per patient preference) optional chin strap (if indicated) and lifetime supplies DX: ALEXANDRA 327.23 clopidogrel 75 mg tablet Take 75 mg by mouth once daily. atorvastatin 40 mg tablet Take 40 mg by mouth once daily. metoprolol tartrate, short acting, 25 mg tablet Take 50 mg by mouth two times a day. Dr Alonso adjusted sertraline (ZOLOFT) 100 mg tablet Take 1 tablet by mouth once daily. Currently working with provider on adjustments No current facility-administered medications for this visit. ALLERGIES: ALLERGIES Allergen Reactions Lisinopril Cough LAUREN cough PAST MEDICAL HISTORY Diagnosis Date CAD (coronary artery disease) Dr. Duron HTN (hypertension) Hyperlipidemia Lung nodule unchanged in over 2 years ALEXANDRA (obstructive sleep apnea) Bipap PAST SURGICAL HISTORY Procedure Laterality Date STENT PLACEMENT Mar 2013 right coronary artery FAMILY HISTORY Problem Relation Age of Onset Hypertension Mother Hypertension Maternal Grandmother SOCIAL HISTORY[1] Reviewed current medications, allergies, past medical history, surgical history, family history and social history today. REVIEW OF SYSTEMS Constitutional: (-) sleep disturbance Cardiovascular: (-) chest pain Respiratory: (-) shortness of breath Neurological: (-) dizziness, (-) lightheadedness Musculoskeletal: (-) myalgia HEALTH MAINTENANCE: Reviewed health maintenance issues today and recommended the following in detail. Colorectal Cancer Screening due on 08/09/2023 LAB REVIEWED: - Lipid panel: Results were reported as normal. VITALS: BP 106/72 Pulse 76 Wt 109.3 kg (241 lb) SpO2 97% BMI 33.14 kg/m? Last 4 Encounter Wt Readings: Date: Wt: 12/14/2024 109.3 kg (241 lb) 06/01/2024 113.4 kg (250 lb) 09/26/2023 111.1 kg (245 lb) 03/22/2023 112.3 kg (247 lb 9.6 oz) PHYSICAL EXAMINATION: General: Alert, well-developed, no acute distress. Neck: No JVD. No carotid bruit. Lungs: Respirations unlabored, clear to auscultation, no wheezes, rales or rhonchi, symmetric air entry. Heart: Regular rate and regular rhythm, S1 and S2 normal, no murmur, no rub or gallop. Abdomen: Soft, non-tender. Extremities: No edema. Pulses: 2+ symmetr (more content not included)... Normal [facility] Comprehensive metabolic 2000 panelon 12-14-2024 Albumin [Mass/Vol] 4.6 g/dL Normal 3.9-4.9 [facility] Comment on above: Order Comment: Speci men Type: BLOOD SPECIMENOrdering Facility: [facility] Address: [address] [place] [address] Performed By: #### 2 4323-8 ####[facility] LABCLIA [id number] [facility] [address] [place] [address] [place] ALP [Catalytic activity/Vol] 95 U/L Normal 38-113 [facility] Comment on above: Order Comment: Speci men Type: BLOOD SPECIMENOrdering Facility: [facility] Address: [address] [place] [address] Performed By: #### 2 4323-8 ####[facility] LABCLIA [id number] [facility] [address] [place] [address] [place] ALT [Catalytic activity/Vol] 37 U/L Normal 10-54 [facility] Comment on above: Order Comment: Speci men Type: BLOOD SPECIMENOrdering Facility: [facility] Address: [address] [place] [address] Performed By: #### 2 4323-8 ####[facility] LABCLIA [id number] [address], [facility] [place] Anion gap [Moles/Vol] 12 mmol/L Normal 8-15 [facility] Comment on above: Order Comment: Speci men Type: BLOOD SPECIMENOrdering Facility: [facility] Address: [address] [place] [address] Performed By: #### 2 4323-8 ####[facility] LABCLIA [id number] [place] [id number] [place] AST [Catalytic activity/Vol] 26 U/L Normal 14-40 [facility] Comment on above: Order Comment: Speci men Type: BLOOD SPECIMENOrdering Facility: [facility] Address: [address] [place], [place] [address] Performed By: #### 2 4323-8 ####[facility] LABCLIA [id number] [address] [address] [place] Bilirubin [Mass/Vol] 1.1 mg/dL Normal 0.2-1.3 [facility] Comment on above: Order Comment: Speci men Type: BLOOD SPECIMENOrdering Facility: [facility] Address: [address] [place] [address] Performed By: #### 2 4323-8 ####[facility] LABCLIA [id number] [address] [address] [place] Calcium [Mass/Vol] 9.7 mg/dL Normal 8.5-10.2 [facility] Comment on above: Order Comment: Speci men Type: BLOOD SPECIMENOrdering Facility: [facility] Address: [address] [place], [place] [address] Performed By: #### 2 4323-8 ####[facility] LABCLIA [id number] [address] [address] [place] Chloride [Moles/Vol] 102 mmol/L Normal 98-107 [facility] Comment on above: Order Comment: Speci men Type: BLOOD SPECIMENOrdering Facility: [facility] Address: [address] [place], [place] [address] Performed By: #### 2 4323-8 ####[facility] LABCLIA [id number] [place] [id number] [place] CO2 [Moles/Vol] 24 mmol/L Normal 22-30 [facility] Comment on above: Order Comment: Speci men Type: BLOOD SPECIMENOrdering Facility: [facility] Address: [address] [place], [place] [address] Performed By: #### 2 4323-8 ####[facility] LABCLIA [id number] [facility] [address] [address] [place] Creatinine [Mass/Vol] 0.93 mg/dL Normal 0.73-1.22 [facility] Comment on above: Order Comment: Speci men Type: BLOOD SPECIMENOrdering Facility: [facility] Address: [address] [place], [place] [id number] Performed By: #### 2 4323-8 ####[facility] LABCLIA [id number] [place] [id number] [place] eGFRcr SerPlBld CKD-EPI 2020 92 mL/min/1.73m??? Normal >=60 [facility] Comment on above: Order Comment: Ziggy gastelum Type: BLOOD SPECIMENOrdering Facility: [facility] Address: [address] [place] [address] Result Comment: Ally mated Glomerular Filtration Rate (eGFR) is calculated using the 2020 CKD-EPI creatinine equation. This equation utilizes serum creatinine, sex, and age as parameters. The creatinine assay has traceable calibration to isotope dilution-mass spectrometry. Refer to KDIGO guidelines for clinical interpretation. In patients with unstable renal function, e.g. those with acute kidney injury, the eGFR may not accurately reflect actual GFR. Performed By: #### 2 4323-8 ####[facility] LABCLIA [id number] [place] [id number] [place] Glucose [Mass/Vol] 89 mg/dL Normal 74-99 [facility] Comment on above: Order Comment: Ziggy gastelum Type: BLOOD SPECIMENOrdering Facility: [facility] Address: [address] [place] [address] Result Comment: The [place] Diabetes Association (ADA) provides guidance for cutoff values for fasting glucose and random glucose. The ADA defines fasting as no caloric intake for at least 8 hours. Fasting plasma glucose results between 100 to 125 mg/dL indicate increased risk for diabetes (prediabetes). Fasting plasma glucose results greater than or equal to 126 mg/dL meet the criteria for diagnosis of diabetes. In the absence of unequivocal hyperglycemia, results should be confirmed by repeat testing. In a patient with classic symptoms of hyperglycemia or hyperglycemic crisis, random plasma glucose results greater than or equal to 200 mg/dL meet the criteria for diagnosis of diabetes. Reference: Standards of Medical Care in Diabetes 2016, [place] Diabetes Association. Diabetes Care. 2016.39(Suppl 1). Performed By: #### 2 4323-8 ####[facility] LABCLIA [id number] [place] [id number] [place] Potassium [Moles/Vol] 4.6 mmol/L Normal 3.7-5.1 [facility] Comment on above: Order Comment: Speci men Type: BLOOD SPECIMENOrdering Facility: [facility] Address: [address] [place] [address] Performed By: #### 2 4323-8 ####[facility] LABCLIA [id number] [address] [address] [place] Protein [Mass/Vol] 7.2 g/dL Normal 6.3-8.0 [facility] Comment on above: Order Comment: Speci men Type: BLOOD SPECIMENOrdering Facility: [facility] Address: [address] [place] [address] Performed By: #### 2 4323-8 ####[facility] LABCLIA [id number] [place] [address] [place] Sodium [Moles/Vol] 138 mmol/L Normal 136-144 [facility] Comment on above: Order Comment: Speci men Type: BLOOD SPECIMENOrdering Facility: [facility] Address: [address] [place] [address] Performed By: #### 2 4323-8 ####[facility] LABCLIA [id number] [place] [address] [place] Urea nitrogen [Mass/Vol] 19 mg/dL Normal 9-24 [facility] Comment on above: Order Comment: Speci men Type: BLOOD SPECIMENOrdering Facility: [facility] Address: [address] [place] [address] Performed By: #### 2 4323-8 ####[facility] LABCLIA [id number] [place] [id number] [place] PSA/PROSTATE SPECIFIC ANTIGE N SCREENINGon 12-14-2024 Prostate specific Ag [Mass/Vol] 2.64 ng/mL High <2.60 [facility] Comment on above: Order Comment: Speci men Type: BLOOD SPECIMENOrdering Facility: [facility] Address: [address] [place] [address] Result Comment: Adam rodrigues PSA test methodology used is the Electrochemiluminescence Immunoassay by [employer]. Total PSA values by differing methodologies cannot be interchanged. For an individual patient, the significance of a PSA level should be interpreted in a broad clinical context, including age, race, family history, digital rectal exam, prostate size, results of prior testing (prostate biopsy, free PSA, PCA3), and use of 5-alpha reductase inhibitors. Considering the high incidence of asymptomatic cancer in the general population that may not pose an ultimate risk to a patient, the decision to recommend urological evaluation or prostate biopsy should be individualized after consideration of all these factors. REFERENCE: Yang Hurt M.D., M.P.H., Jake Valverde M.D., Ph.D., Raymond Fried M.D., Thalia Mccrary, M.P.H., Elly Coronel, Sc.D. Effect of Verification Bias on Screening for Prostate Cancer by Measurement of Prostatic Specific Antigen. N Engl J Med 2003,349:335-42. Performed By: #### P SAS1 ####[facility] LABIA [id number] [address] OF [facility] [place] 10-05-2024 KATINAN Telephone (AZIZA) TUAN VEGA ([id number]) 1960 M Date Time Provider Department 10/05/24 RAYMOND MCCRAY JR During your visit today, we recorded the following information about you: Christine Patel LPN 10/05/2024 10:06 AM Signed LM for patient to see what DME he uses for cpap Christine Patel LPN Allergies As of Date: 10/05/2024 Noted Allergy Reaction LISINOPRIL 06/25/2013 3 - Cough Comments: LAUREN cough Date Reviewed: 06/01/2024 Reviewed by: Sophie Hawkins MA - Fully Assessed Reason for Visit: cpap compliance [Other] Prescriptions as of 10/05/2024 - sertraline (ZOLOFT) 100 mg tablet Take 1 tablet by mouth once daily. Currently working with provider on adjustments - losartan (COZAAR) 100 mg tablet Take 1 tablet by mouth once daily. - EPINEPHrine (EPIPEN) 0.3 mg/0.3 mL auto-injector Use as directed - COMPOUNDED PRESCRIPTION Initiate bilevel @ 18/14 cm of water with back up rate of 12 with humidification mask (per patient preference) optional chin strap (if indicated) and lifetime supplies DX: ALEXANDRA 327.23 - clopidogrel 75 mg tablet Take 75 mg by mouth once daily. - atorvastatin 40 mg tablet Take 40 mg by mouth once daily. - metoprolol tartrate, short acting, 25 mg tablet Take 50 mg by mouth two times a day. Dr Alonso adjusted - aspirin 325 mg tablet Take 81 mg by mouth once daily. 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 Gardner, his neurologist, has retired. Patient has appointment with Dr. Mccray on 10/16/2024. Patient is needing refills on Sertraline. Patient asking if PCP can send in refills enough to get him to his appointment with Dr. Mccray? Patient reports that he takes 100 mg once a day. Please review and advise, JOYCELYN Schofield, Raymond Munoz MD 08/21/2024 1:11 PM Signed sent Sophie Hawkins MA 08/21/2024 3:06 PM Signed Patient informed. Sophie Hawkins MA Allergies As of Date: 08/21/2024 Noted Allergy Reaction LISINOPRIL 06/25/2013 3 - Cough Comments: LAUREN cough Date Reviewed: 06/01/2024 Reviewed by: Sophie Hawkins MA - Fully Assessed Reason for Visit: Medication Request [138] Order(s):sertraline (ZOLOFT) 100 mg tabletTake 1 tablet by mouth once daily. Currently working with provider on adjustmentsDisp: 30 tabletRfl: 2 Prescriptions as of 08/21/2024 - sertraline (ZOLOFT) 100 mg tablet Take 1 tablet by mouth once daily. Currently working with provider on adjustments - losartan (COZAAR) 100 mg tablet Take 1 tablet by mouth once daily. - EPINEPHrine (EPIPEN) 0.3 mg/0.3 mL auto-injector Use as directed - COMPOUNDED PRESCRIPTION Initiate bilevel @ 18/14 cm of water with back up rate of 12 with humidification mask (per patient preference) optional chin strap (if indicated) and lifetime supplies DX: ALEXANDRA 327.23 - clopidogrel 75 mg tablet Take 75 mg by mouth once daily. - atorvastatin 40 mg tablet Take 40 mg by mouth once daily. - metoprolol tartrate, short acting, 25 mg tablet Take 50 mg by mouth two times a day. Dr Alonso adjusted - aspirin 325 mg tablet Take 81 mg by mouth once daily. 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 Currently working with provider on adjustments Medications Discontinued During This Encounter Prescriptions - sertraline (ZOLOFT) 100 mg tablet (Discontinued) Take 100 mg by mouth once daily. Currently working with provider on adjustments Encounter Status:Closed by SOPHIE HAWKINS on 08/21/24 [facility] 06-01-2024 CN Office Visit (FAMKirtWS ) TUAN VEGA ([id number]) 1960 M Date Time Provider Department 06/01/24 3:20 PM RAYMOND LU During your visit today, we recorded the following information about you: Pulse Blood pressure Weight Height 73/minute 126/70 113.4 kg 1.816 m Raymond Lu MD 06/01/2024 3:59 PM Signed Patient presents with: 6 Month Exam HPI: Patient presents today for office visit for routine 6 month follow up. Continue to see cardiology and sleep med HYPERTENSION: does not check his bp at home. No issues with meds. PSYCH: emotions are doing ok. His father is sleeping well ALEXANDRA:will need to switch sleep med. Will have him notify me when due. She just saw her but Dr Gardner who he saw previously is leaving the state. Cpap is working well and sleeping well. HLD:no myalgias. CARDIO:no chest pain or shortness of breath. No edema. MEDICATIONS: Current Outpatient Medications Medication Sig losartan (COZAAR) 100 mg tablet Take 1 tablet by mouth once daily. sertraline (ZOLOFT) 100 mg tablet Take 100 mg by mouth once daily. Currently working with provider on adjustments EPINEPHrine (EPIPEN) 0.3 mg/0.3 mL auto-injector Use as directed COMPOUNDED PRESCRIPTION Initiate bilevel @ 18/14 cm of water with back up rate of 12 with humidification mask (per patient preference) optional chin strap (if indicated) and lifetime supplies DX: ALEXANDRA 327.23 clopidogrel 75 mg tablet Take 75 mg by mouth once daily. atorvastatin 40 mg tablet Take 40 mg by mouth once daily. metoprolol tartrate, short acting, 25 mg tablet Take 50 mg by mouth two times a day. Dr Alonso adjusted aspirin 325 mg tablet Take 81 mg by mouth once daily. Changed by cardiology No current facility-administered medications for this visit. ALLERGIES: ALLERGIES Allergen Reactions Lisinopril Cough LAUREN cough PAST MEDICAL HISTORY Diagnosis Date CAD (coronary artery disease) Dr. Duron HTN (hypertension) Hyperlipidemia Lung nodule unchanged in over 2 years ALEXANDRA (obstructive sleep apnea) Bipap PAST SURGICAL HISTORY Procedure Laterality Date STENT PLACEMENT Mar 2013 right coronary artery FAMILY HISTORY Problem Relation Age of Onset Hypertension Mother Hypertension Maternal Grandmother Social History Tobacco Use Smoking status: Never Smokeless tobacco: Never Substance Use Topics Alcohol use: No Drug use: No Reviewed current medications, allergies, past medical history, surgical history, family history and social history today. REVIEW OF SYSTEMS All other reviewed and negative other than HPI. HEALTH MAINTENANCE: Reviewed health maintenance issues today and recommended the following in detail. Depression Screening Never done Anxiety Screening Never done BP Controlled (<130/80) Never done DTaP,Tdap,Td Vaccine(1 - Tdap) Never done Pneumococcal Vaccine: 50+(1 of 1 - PCV) Never done LDL Cholesterol due on 03/25/2023 Colorectal Cancer Screening - has cologuard Influenza Vaccine(1) due on 11/27/2023 Covid-19 Vaccine(2023- season) due on 11/27/2023 VITALS: BP 126/70 Pulse 73 Ht 181.6 cm (5' 11.5) Wt 113.4 kg (250 lb) SpO2 95% BMI 34.38 kg/m? Last 4 Encounter Wt Readings: Date: Wt: 06/01/2024 113.4 kg (250 lb) 09/26/2023 111.1 kg (245 lb) 03/22/2023 112.3 kg (247 lb 9.6 oz) 03/23/2022 113.9 kg (251 lb) PHYSICAL EXAMINATION: General appearance: Well appearing, alert, in no acute distress, well-hydrated, well nourished. Skin: Skin color, texture, turgor normal, no suspicious rashes or lesions Head: Normocephalic, no masses, lesions, tenderness or abnormalities Lungs: Lungs clear to auscultation. No wheezing, rhonchi, rales Heart: RRR without murmur, gallop, or rubs. No ectopy Abdomen: Normal abdominal exam, Abdomen soft, non-tender. Bowel sounds normal. No masses, organomegaly Extremities: No deformities, edema, skin discoloration, clubbing or cyanosis. Good capillary refill. ASSESSMENT/PLAN: 1. Coronary artery disease involving tolowa dee-ni' heart without angina pectoris, unspecified vessel or lesion type - ICD9: 414.01, ICD10: I25.10 (primary diagnosis) - continue meds. Follow with cardiology. Labs in six months. - COMPLETE BLOOD COUNT AND DIFFERENTIAL - COMPREHENSIVE METABOLIC PANEL - LIPID PANEL BASIC 2. Primary hypertension - ICD9: 401.9, ICD10: I10 - Controlled - Continue current medications 3. Hyperlipidemia, unspecified hyperlipidemia type - ICD9: 272.4, ICD10: E78.5 - Controlled - Continue current medications 4. Sleep apnea, unspecified type - ICD9: 780.57, ICD10: G47.30 - continue cpap. 5. RLS (restless legs syndrome) - ICD9: 333.94, ICD10: G25.81 - stable. 6. Screening for prostate cancer - ICD9: V76.44, ICD10: Z12.5 - PSA/PROSTATE SPECIFIC ANTIGEN SCREENING 7. Screening for depression - ICD9: V79.0, ICD10: Z13. - DEPRESSION SCREE (more content not included)... Normal [facility] Metabolic Prof miguel angel 03-16-2024 Albumin [Mass/Vol] 3.8 g/dL Normal 3.2-5.0 [facility] Comment on above: Performed By: #### L 333.5172, L500.1296 #### [facility] [address] [place], [address] Albumin/Globulin [Mass ratio] 1.1 {ratio} Normal 0.9-2.4 [facility] Comment on above: Performed By: #### L 500.4050, L500.4100 #### [facility] [address] [place], [address] ALK P 92 U/L Normal 45-117 [facility] Comment on above: Performed By: #### L 500.4050, L500.4100 #### [facility] [address] [place], [address] ALT [Catalytic activity/Vol] 45 U/L Normal 16-61 [facility] Comment on above: Performed By: #### L 500.4050, L500.4100 #### [facility] [address] [place], [address] AST [Catalytic activity/Vol] 17 U/L Normal 15-37 [facility] Comment on above: Performed By: #### L 500.4050, L500.4100 #### [facility] [address] [place], [address] Bilirubin [Mass/Vol] 0.80 mg/dL Normal 0.20-1.00 [facility] Comment on above: Result Comment: For patients on eltrombopag therapy, use of Dimension Austin TBIL is not recommended. Performed By: #### L 500.4050, L500.4100 #### [facility] [address] [place], [address] BUN/CRE 19.6 RATIO Normal 10-20 [facility] Comment on above: Performed By: #### L 500.4050, L500.4100 #### [facility] [address] [place], [address] CA,Total 9.3 mg/dL Normal 8.5-10.1 [facility] Comment on above: Performed By: #### L 500.4050, L500.4100 #### [facility] [address] [place], [address] Chloride [Moles/Vol] 108 mmol/L High 98-107 [facility] Comment on above: Performed By: #### L 500.4050, L500.4100 #### [facility] [address] [place], [address] CO2 [Moles/Vol] 27.0 mmol/L Normal 21.0-32.0 [facility] Comment on above: Performed By: #### L 500.4050, L500.4100 #### [facility] [address] [place], [address] Creatinine [Mass/Vol] 1.02 mg/dL Normal 0.70-1.30 [facility] Comment on above: Result Comment: The validity of the calculated GFR GFRAA in patients over 70 years has not been determined. Clinical correlation is essential. Performed By: #### L 500.4050, L500.4100 #### [facility] [address] [place], [address] EST GFR - AA 95 mL/min Normal >60 [facility] Comment on above: Result Comment: Afri can [place] GFR Calc Performed By: #### L 500.4050, L500.4100 #### [facility] [address] [place], [address] GAP 5 Normal 5-15 [facility] Comment on above: Performed By: #### L 500.4050, L500.4100 #### [facility] [address] [place], [address] GFR/1.73 sq M.predicted among non-blacks MDRD (S/P/Bld) [Vol rate/Area] 78 mL/min/{1.73_m2} Normal >60 [facility] Comment on above: Result Comment: Non- GFR Calc Performed By: #### L 500.4050, L500.4100 #### [facility] [address] [place], [address] Globulin (S) [Mass/Vol] 3.5 g/dL Normal 2.2-4.2 [facility] Comment on above: Performed By: #### L 500.4050, L500.4100 #### [facility] [address] [place], [address] Glucose [Mass/Vol] 132 mg/dL High 74-106 [facility] Comment on above: Result Comment: Fast ing Glucose result greater than or equal to 126 mg/dL suggests DIABETES MELLITUS per A.D.A. criteria. Performed By: #### L 500.4050, L500.4100 #### [facility] [address] [place], [address] Potassium [Moles/Vol] 4.0 mmol/L Normal 3.5-5.1 [facility] Comment on above: Performed By: #### L 500.4050, L500.4100 #### [facility] [address] [place], [address] Sodium [Moles/Vol] 140 mmol/L Normal 136-145 [facility] Comment on above: Performed By: #### L 500.4050, L500.4100 #### [facility] [address] [place], [address] T PROT 7.3 g/dL Normal 6.4-8.2 [facility] Comment on above: Performed By: #### L 500.4050, L500.4100 #### [facility] [address] [place], [address] Urea nitrogen [Mass/Vol] 20 mg/dL High 7-18 [facility] Comment on above: Performed By: #### L 500.4050, L500.4100 #### [facility] [address] [place], [address] LDL CHOLESTEROL DIRECT (FOR REMOTE [facility] USE)Ordered By: Kate Santamaria on 03-16-2024 [facility] Lipid ProfileOrdered By: Edel Santamaria on 03-16-2024 Cholesterol [Mass/Vol] 142 mg/dL Normal 200 [facility] Comment on above: Result Comment: <200 mg/dL Desirable 200-240 mg/dL Borderline >240 mg/dL High Risk Performed By: #### L 500.4050, L500.4100 #### [facility] [address] [place], [address] Cholesterol in HDL [Mass/Vol] 44 mg/dL Normal [facility] Comment on above: Result Comment: The drugs N-Acetylcysteine and Metamizole may falsely depress this assay. Reference Range HDL <40 mg/dL Low HDL Cholesterol HDL >or= 60 mg/dL High HDL Cholesterol Performed By: #### L 500.4050, L500.4100 #### [facility] [address] [place], [address] Cholesterol in LDL [Mass/Vol] 80 mg/dL Normal 0-130 [facility] Comment on above: Performed By: #### L 500.4050, L500.4100 #### [facility] [address] [place], [address] Triglyceride [Mass/Vol] 92 mg/dL Normal [facility] Comment on above: Result Comment: The drugs N-Acetylcysteine and Metamizole may falsely depress this assay. Serum Triglycerides Reference Interval Normal <150 mg/dL Borderline high 150 - 199 mg/dL High 200 - 499 mg/dL Very High > or = 500 mg/dL Performed By: #### L 500.4050, L500.4100 #### [facility] [address] [place], [address] Lipid Profileon 03-16-2024 Cholesterol in VLDL [Mass/Vol] 18 mg/dL Normal 5-40 [facility] Comment on above: Performed By: #### L 500.4050, L500.4100 #### [facility] [address] [place], [address] Cardiology Visit Reporton Cardiology Visit Report [facility] [address] [place] [address] OFFICE VISIT Date of Service: 02/06/24 MR#: [id number] Acct: [id number] Name: TUAN VEGA Rep #: [id number] : 1960 Provider: Dr. Billy Alonso MD Age/Sex: 63/M Location: [facility] Status: Signed HPI HPI History of Present Illness Details: This gentleman with history significant for coronary artery disease status post percutaneous intervention at an outside facility in 2013, mild LV systolic dysfunction with previously noted EF of 45%, is here for follow-up visit. Denies any complaints. No chest pains. No shortness of breath. Denies any palpitations, orthopnea, PND or ankle edema. Tolerating atorvastatin well and denies any muscle aches or pains. Intake Vital Signs 11/09/22 14:03 02/06/24 08:00 Height 5 ft 11 in 5 ft 11 in Weight: 244 lb BMI 34.0 BP 130/86 H Blood Pressure Location Lt brachial Position Sitting Respiration 18 Pulse 72 Pulse Source NIBP Intake Visit Reasons: 10 M FU Special Education Inclusion Teacher Required: No Accompanied by: Self Allergies LAUREN Inhibitors Adverse Reaction (Verified 02/06/24 09:32) cough Medications ???Medication ???Instructions ???Recorded ???Confirmed ???Type losartan 100 mg tablet 100 mg PO QDAY #90 tabs 04/23/21 02/06/24 Rx aspirin 81 mg tablet,delayed 81 mg PO DAILY 11/09/22 02/06/24 History release atorvastatin 40 mg tablet 40 mg PO QHS #90 tabs 03/23/23 02/06/24 Rx clopidogrel 75 mg tablet 75 mg PO DAILY #90 tabs 04/08/23 02/06/24 Rx metoprolol tartrate 50 mg tablet 50 mg PO BID #180 tabs 04/08/23 02/06/24 Rx sertraline 100 mg tablet 100 mg PO QHS 02/06/24 02/06/24 History Ejection fraction %: 45 Have you fallen in the past year?: No PFSH Medical History Atherosclerotic heart disease of tolowa dee-ni' coronary artery without angina pectoris Chest pain Essential hypertension Hyperlipemia Hypertension Ischemic cardiomyopathy Old myocardial infarction Peripheral vascular disease, unspecified Presence of stent in coronary artery ( 04/14/13) Pure hypercholesterolemia Surgical History Presence of coronary angioplasty implant and graft ( 04/14/13) Family History Father HLD (hyperlipidemia) Mother Breast cancer Hypertension CAD (coronary artery disease) Hepatitis Dinh's palsy Social History Smoking Status: Never smoker alcohol intake: never substance use type: does not use caffeine: Yes Type: coffee Number of servings: 2 what type of physical activity do you participate in: walking and weight training frequency: 3-4 times per week duration: 15-30 minutes/day seatbelt use: always do you feel safe at home: Yes ROS Const Const: Negative for fatigue, weakness, headache(s) or weight gain ENT ENT: Negative for headache(s), dizziness, Nosebleed/epistaxis or balance problems Cardio Chest Pain: No Palpitations: No Edema: None Muscle aches with walking: None Resp Respiratory: Negative for SOB with activity, SOB at rest or SOB orthopnea SOB lying down GI GI: Negative nausea, vomiting or heartburn Musc Musc: Negative for muscle aches/ myalgia, muscle weakness, joint pain or balance problems Neuro Neuro: Positive for other (numbness in fingers on occasion); Negative for dizziness, lightheadedness, near syncope, syncope, headache(s) or weakness Endo Endo: Negative for fatigue Cardiology Exam Const Appearance: comfortable and no acute distress Nutritional Appearance: well nourished Neck Neck: no JVD Carotids: Negative bruit Chest Auscultation: Bilateral: Clear to Auscultation Cardio Rate: regular rate Rhythm: regular rhythm Heart sounds: S1 normal and S2 normal Neuro General: patient alert, patient awake and patient oriented x3 Extremities Lower Extremity Edema: None: Bilateral Supplemental Info Supplemental Information Echocardiogram: 06/16/2013 Interpretation Summary Mild segmental systolic dysfunction (see wall motion). The estimated ejection fraction is 45 %. Trivial mitral valve insufficiency. Trivial tricuspid valve insufficiency. Trivial aortic valve insufficiency. Trivial pulmonic valve insufficiency. Transmitral Doppler flow suggestive of impaired relaxation of left ventricle EXERCISE TOLERANCE TEST:05/01/2013 The patient exercised on a Rajan protocol for 10 minutes completing stage III and 1 minute of stage IV achieving a peak heart rate of 146 beats per minute (86% predicted maximum heart rate) and a peak blood pressure of 174/68 mmHg and a peak MET capacity of approximately 11 METS. The baseline ECG demonstra (more content not included)... Normal [facility] CBC W Auto Differential pane l (Bld)on 11-21-2023 Basophils (Bld) [#/Vol] 10*3/uL Normal <0.11 [facility] Comment on above: Order Comment: Speci men Type: BLOOD SPECIMEN Ordering Facility: [facility] Address: [address] [place] [address] Performed By: #### 5 7021-8 #### [facility] CLIA [id number] [address] [place] [address] [place] Basophils/100 WBC (Bld) 0.2 % Normal [facility] Comment on above: Order Comment: Speci men Type: BLOOD SPECIMEN Ordering Facility: [facility] Address: [address] [place] [address] Performed By: #### 5 7021-8 #### [facility] CLIA [id number] [address] [place] Differential cell count method Nom (Bld) Auto Normal [facility] Comment on above: Order Comment: Speci men Type: BLOOD SPECIMEN Ordering Facility: [facility] Address: [address] [place] [address] Performed By: #### 5 7021-8 #### [facility] CLIA [id number] [address] [place] [address] [place] Eosinophils (Bld) [#/Vol] 0.16 10*3/uL Normal <0.46 [facility] Comment on above: Order Comment: Speci men Type: BLOOD SPECIMEN Ordering Facility: [facility] Address: [address] [place] [address] Performed By: #### 5 7021-8 #### [facility] CLIA [id number] [address] Eosinophils/100 WBC (Bld) 1.8 % Normal [facility] Comment on above: Order Comment: Speci men Type: BLOOD SPECIMEN Ordering Facility: [facility] Address: [address] [place] [address] Performed By: #### 5 7021-8 #### [facility] CLIA [id number] [address] [place] Erythrocyte distribution width (RBC) [Ratio] 13.2 % Normal 11.5-15.0 [facility] Comment on above: Order Comment: Speci men Type: BLOOD SPECIMEN Ordering Facility: [facility] Address: [address] [place] [address] Performed By: #### 5 7021-8 #### [facility] CLIA [id number] [address] Hematocrit (Bld) [Volume fraction] 41.9 % Normal 39.0-51.0 [facility] Comment on above: Order Comment: Speci men Type: BLOOD SPECIMEN Ordering Facility: [facility] Address: [address] [place] [address] Performed By: #### 5 7021-8 #### [facility] CLIA [id number] [address] [place] Hemoglobin (Bld) [Mass/Vol] 13.5 g/dL Normal 13.0-17.0 [facility] Comment on above: Order Comment: Speci men Type: BLOOD SPECIMEN Ordering Facility: [facility] Address: [address] [place] [address] Performed By: #### 5 7021-8 #### [facility] CLIA [id number] [address] Immature granulocytes (Bld) [#/Vol] 0.05 10*3/uL Normal <0.10 [facility] Comment on above: Order Comment: Speci men Type: BLOOD SPECIMEN Ordering Facility: [facility] Address: [address] [place] [address] Performed By: #### 5 7021-8 #### [facility] CLIA [id number] [address] Immature granulocytes/100 WBC (Bld) 0.6 % Normal [facility] Comment on above: Order Comment: Speci men Type: BLOOD SPECIMEN Ordering Facility: [facility] Address: [address] [place] [address] Performed By: #### 5 7021-8 #### [facility] CLIA [id number] [address] OF [facility] Lymphocytes (Bld) [#/Vol] 1.73 10*3/uL Normal 1.00-4.00 [facility] Comment on above: Order Comment: Speci men Type: BLOOD SPECIMEN Ordering Facility: [facility] Address: [address] [place] [address] Performed By: #### 5 7021-8 #### [facility] CLIA [id number] [address] Lymphocytes/100 WBC (Bld) 20.0 % Normal [facility] Comment on above: Order Comment: Speci men Type: BLOOD SPECIMEN Ordering Facility: [facility] Address: [address] [place] [address] Performed By: #### 5 7021-8 #### [facility] CLIA [id number] [address] STATES [facility] MCH (RBC) [Entitic mass] 30.4 pg Normal 26.0-34.0 [facility] Comment on above: Order Comment: Speci men Type: BLOOD SPECIMEN Ordering Facility: [facility] Address: [address] [place] [address] Performed By: #### 5 7021-8 #### [facility] CLIA [id number] [address] MCHC (RBC) [Mass/Vol] 32.2 g/dL Normal 30.5-36.0 [facility] Comment on above: Order Comment: Speci men Type: BLOOD SPECIMEN Ordering Facility: [facility] Address: [address] [place] [address] Performed By: #### 5 7021-8 #### [facility] CLIA [id number] [address] [place] MCV (RBC) [Entitic vol] 94.4 fL Normal 80.0-100.0 [facility] Comment on above: Order Comment: Speci men Type: BLOOD SPECIMEN Ordering Facility: [facility] Address: [address] [place] [address] Performed By: #### 5 7021-8 #### [facility] CLIA [id number] [address] [place] Monocytes (Bld) [#/Vol] 0.86 10*3/uL Normal <0.87 [facility] Comment on above: Order Comment: Speci men Type: BLOOD SPECIMEN Ordering Facility: [facility] Address: [address] [place] [address] Performed By: #### 5 7021-8 #### [facility] CLIA [id number] [address] Monocytes/100 WBC (Bld) 9.9 % Normal [facility] Comment on above: Order Comment: Speci men Type: BLOOD SPECIMEN Ordering Facility: [facility] Address: [address] [place] [address] Performed By: #### 5 7021-8 #### [facility] CLIA [id number] [address] [place] Neutrophils (Bld) [#/Vol] 5.84 10*3/uL Normal 1.45-7.50 [facility] Comment on above: Order Comment: Speci men Type: BLOOD SPECIMEN Ordering Facility: [facility] Address: [address] [place] [address] Performed By: #### 5 7021-8 #### [facility] CLIA [id number] [address] Neutrophils/100 WBC (Bld) 67.5 % Normal [facility] Comment on above: Order Comment: Speci men Type: BLOOD SPECIMEN Ordering Facility: [facility] Address: [address] [place] [address] Performed By: #### 5 7021-8 #### [facility] CLIA [id number] [address] Nucleated RBC (Bld) [#/Vol] 10*3/uL Normal <0.01 [facility] Comment on above: Order Comment: Speci men Type: BLOOD SPECIMEN Ordering Facility: [facility] Address: [address] [place] [address] Performed By: #### 5 7021-8 #### [facility] CLIA [id number] [address] Nucleated RBC/100 WBC (Bld) [Ratio] 0.0 /[address] [facility] Comment on above: Order Comment: Speci men Type: BLOOD SPECIMEN Ordering Facility: [facility] Address: [address] [place] [address] Performed By: #### 5 7021-8 #### [facility] CLIA [id number] [address] Platelet mean volume (Bld) [Entitic vol] 10.6 fL Normal 9.0-12.7 [facility] Comment on above: Order Comment: Speci men Type: BLOOD SPECIMEN Ordering Facility: [facility] Address: [address] [place] [address] Performed By: #### 5 7021-8 #### [facility] CLIA [id number] [address] [place] Platelets (Bld) [#/Vol] 245 10*3/uL Normal 150-400 [facility] Comment on above: Order Comment: Speci men Type: BLOOD SPECIMEN Ordering Facility: [facility] Address: [address] [place] [address] Result Comment: No c lot detected. Performed By: #### 5 7021-8 #### [facility] CLIA [id number] [address] OF [facility] RBC (Bld) [#/Vol] 4.44 10*6/uL Normal 4.20-6.00 [facility] Comment on above: Order Comment: Speci men Type: BLOOD SPECIMEN Ordering Facility: [facility] Address: [address] [place] [address] Performed By: #### 5 7021-8 #### [facility] CLIA [id number] [address] OF [facility] WBC (Bld) [#/Vol] 8.66 10*3/uL Normal 3.70-11.00 [facility] Comment on above: Order Comment: Speci men Type: BLOOD SPECIMEN Ordering Facility: [facility] Address: [address] [place] [address] Performed By: #### 5 7021-8 #### [facility] CLIA [id number] [address] Comprehensive metabolic 2000 panelon 11-21-2023 Albumin [Mass/Vol] 4.3 g/dL Normal 3.9-4.9 [facility] Comment on above: Order Comment: Speci men Type: BLOOD SPECIMEN Ordering Facility: [facility] Address: [address] [place] [address] Performed By: #### P SAS1, 89704-7, 27328-3 #### [facility] CLIA [id number] [address] ALP [Catalytic activity/Vol] 85 U/L Normal 38-113 [facility] Comment on above: Order Comment: Speci men Type: BLOOD SPECIMEN Ordering Facility: [facility] Address: [address] [place] [address] Performed By: #### P SAS1, 98021-8, 44456-1 #### [facility] CLIA [id number] [address] ALT With P-5'-P [Catalytic activity/Vol] 26 U/L Normal 10-54 [facility] Comment on above: Order Comment: Speci men Type: BLOOD SPECIMEN Ordering Facility: [facility] Address: [address] [place] [address] Performed By: #### P SAS1, , #### [facility] CLIA [id number] [address] STATES OF [facility] Anion gap [Moles/Vol] 9 mmol/L Normal 8-15 [facility] Comment on above: Order Comment: Speci men Type: BLOOD SPECIMEN Ordering Facility: [facility] Address: [address] [place] [address] Performed By: #### P SAS1, , #### [facility] CLIA [id number] [address] STATES OF [facility] AST With P-5'-P [Catalytic activity/Vol] 18 U/L Normal 14-40 [facility] Comment on above: Order Comment: Speci men Type: BLOOD SPECIMEN Ordering Facility: [facility] Address: [address] [place] [address] Performed By: #### P SAS1, , #### [facility] CLIA [id number] [address] [place] Bilirubin [Mass/Vol] 0.8 mg/dL Normal 0.2-1.3 [facility] Comment on above: Order Comment: Speci men Type: BLOOD SPECIMEN Ordering Facility: [facility] Address: [address] [place] [address] Performed By: #### P SAS1, , #### [facility] CLIA [id number] [address] [place] Calcium [Mass/Vol] 9.3 mg/dL Normal 8.5-10.2 [facility] Comment on above: Order Comment: Speci men Type: BLOOD SPECIMEN Ordering Facility: [facility] Address: [address] [place] [address] Performed By: #### P SAS1, 41101-9, 90306-5 #### [facility] CLIA [id number] [address] [place] Chloride [Moles/Vol] 105 mmol/L Normal 98-107 [facility] Comment on above: Order Comment: Speci men Type: BLOOD SPECIMEN Ordering Facility: [facility] Address: [address] [place] [address] Performed By: #### P SAS1, 77924-6, 50771-8 #### [facility] CLIA [id number] [address] [place] CO2 [Moles/Vol] 27 mmol/L Normal 22-30 [facility] Comment on above: Order Comment: Speci men Type: BLOOD SPECIMEN Ordering Facility: [facility] Address: [address] [place] [address] Performed By: #### P SAS1, , 83094-5 #### [facility] CLIA [id number] [address] Creatinine [Mass/Vol] 0.97 mg/dL Normal 0.73-1.22 [facility] Comment on above: Order Comment: Speci men Type: BLOOD SPECIMEN Ordering Facility: [facility] Address: [address] [place] [address] Performed By: #### P SAS1, , 95741-6 #### [facility] CLIA [id number] [address] Creatinine and Glomerular filtration rate.predicted panel (S/P/Bld) 88 mL/min/1.73m??? Normal >=60 [facility] Comment on above: Order Comment: Speci men Type: BLOOD SPECIMEN Ordering Facility: [facility] Address: [address] [place] [address] Result Comment: Ally mated Glomerular Filtration Rate (eGFR) is calculated using the 2020 CKD-EPI creatinine equation. This equation utilizes serum creatinine, sex, and age as parameters. The creatinine assay has traceable calibration to isotope dilution-mass spectrometry. Refer to KDIGO guidelines for clinical interpretation. In patients with unstable renal function, e.g. those with acute kidney injury, the eGFR may not accurately reflect actual GFR. Performed By: #### P CALLY1, , #### [facility] CLIA [id number] [address] [place] [address] [place] Glucose [Mass/Vol] 121 mg/dL High 74-99 [facility] Comment on above: Order Comment: Ziggy gastelum Type: BLOOD SPECIMEN Ordering Facility: [facility] Address: [address] [place] [address] Result Comment: The [place] Diabetes Association (ADA) provides guidance for cutoff values for fasting glucose and random glucose. The ADA defines fasting as no caloric intake for at least 8 hours. Fasting plasma glucose results between 100 to 125 mg/dL indicate increased risk for diabetes (prediabetes). Fasting plasma glucose results greater than or equal to 126 mg/dL meet the criteria for diagnosis of diabetes. In the absence of unequivocal hyperglycemia, results should be confirmed by repeat testing. In a patient with classic symptoms of hyperglycemia or hyperglycemic crisis, random plasma glucose results greater than or equal to 200 mg/dL meet the criteria for diagnosis of diabetes. Reference: Standards of Medical Care in Diabetes 2016, [place] [employer]. Diabetes Care. 2016.39(Suppl 1). Performed By: #### P CALLY1, , #### [facility] CLIA [id number] [address] [place] [address] [place] Potassium [Moles/Vol] 4.7 mmol/L Normal 3.7-5.1 [facility] Comment on above: Order Comment: Ziggy gastelum Type: BLOOD SPECIMEN Ordering Facility: [facility] Address: [address] [place] [address] Performed By: #### P CALLY1, , #### [facility] CLIA [id number] [address] [place] [address] [place] Protein [Mass/Vol] 6.7 g/dL Normal 6.3-8.0 [facility] Comment on above: Order Comment: Ziggy gastelum Type: BLOOD SPECIMEN Ordering Facility: [facility] Address: [address] [place] [address] Performed By: #### P SAS1, , 29045-8 #### [facility] CLIA [id number] [address] [place] [address] [place] Sodium [Moles/Vol] 141 mmol/L Normal 136-144 [facility] Comment on above: Order Comment: Speci men Type: BLOOD SPECIMEN Ordering Facility: [facility] Address: [address] [place] [address] Performed By: #### P SAS1, , 11854-0 #### [facility] CLIA [id number] [address] [place] Urea nitrogen [Mass/Vol] 18 mg/dL Normal 9-24 [facility] Comment on above: Order Comment: Speci men Type: BLOOD SPECIMEN Ordering Facility: [facility] Address: [address] [place] [address] Performed By: #### P SAS1, , #### [facility] CLIA [id number] [address] [place] [address] [place] Magnesium SerPl-mCncon 11-20 Magnesium [Mass/Vol] 2.2 mg/dL Normal 1.7-2.3 [facility] Comment on above: Order Comment: Speci men Type: BLOOD SPECIMEN Ordering Facility: [facility] Address: [address] [place] [address] Performed By: #### P SAS1, , #### [facility] CLIA [id number] [address] [place] [address] [place] PSA/PROSTATE SPECIFIC ANTIGE N SCREENINGon 11-21-2023 Prostate specific Ag [Mass/Vol] 1.58 ng/mL Normal <2.60 [facility] Comment on above: Order Comment: Speci men Type: BLOOD SPECIMEN Ordering Facility: [facility] Address: [address] [place] [address] Result Comment: Tota l PSA test methodology used is the Electrochemiluminescence Immunoassay by [employer]. Total PSA values by differing methodologies cannot be interchanged. Performed By: #### P SAS1, 08373-8, 26697-0 #### [facility] CLIA [id number] [address] [place] [address] [place] GALARZA XR FINGERS(S) RT 1ST DIGI T, THUMB 2+Von 11-11-2022 GALARZA XR FINGERS(S) RT 1ST DIGIT, THUMB 2+V RIGHT THUMB History: Thumb contusion, injury Findings: Three views of the right thumb show no acute fracture, dislocation, periosteal reaction, joint space narrowing, or bone erosion. IMPRESSION: Unremarkable right thumb. Report Dictated on Authenticated by: Pawan Peck On: 11/11/2022 15:49 Read by: PAWAN PECK MD, Date: 11/11/2022 15:49 [facility] No Panel Informationon 03-23 [facility] SPIROMETRY - BASELINE AND PO ST DILATORon 03-23-2022 DLCO (ml/min/mmHg) 25.73 ml/min/mmHg [facility] DLCO/VA (ml/min/mmHg/L) 3.80 ml/min/mmHg/L [facility] ERV BOX (L) 0.96 L [facility] TIA50-40% POST (L/S) 3.95 L/S [facility] YII79-50% PRE (L/S) 4.04 L/S [facility] land [facility] FEV1 PRE (L) 4.10 L [facility] FEV1/FVC POST (%) 84 % [facility] FEV1/[facility] PRE (%) 80 % [facility] FEV1_POST (L) 4.05 L [facility] FRC Box (L) 3.12 L [facility] FVC POST (L) 4.84 L [facility] FVC PRE (L) 5.13 L [facility] IC BOX (L) 3.82 L [facility] PEF POST (L/S) 10.12 L/S [facility] PEF PRE (L/S) 9.99 L/S [facility] RV Box (L) 2.07 L [facility] RV/TLC Box (%) 30 % [facility] T[facility] Box (L) 6.89 L [facility] VA (L) 6.77 L [facility] VC (L) BOX 4.78 L [facility] Lab Report: Lipid Profileon 12-27-2016 Cholesterol 113 mg/dL Invalid Interpretation Code 200 [employer] Work Phone: [phone] HDL Cholesterol 42 mg/dL Invalid Interpretation Code [employer] Work Phone: [phone] LDL Cholesterol 52 mg/dL Invalid Interpretation Code 0-130 [employer] Work Phone: [phone] Triglyceride 96 mg/dL Invalid Interpretation Code [employer] Work Phone: [phone] very low density lipoproteins 19 mg/dL Invalid Interpretation Code 5-40 [employer] Work Phone: [phone] Lab Report: Liver Profileon 12-27-2016 Alanine aminotransferase (ALT) 47 U/L Invalid Interpretation Code 12-78 [employer] Work Phone: [phone] Albumin 3.9 g/dL Invalid Interpretation Code 3.4-5.0 [employer] Work Phone: [phone] Alkaline phosphatase (ALP) 75 U/L Invalid Interpretation Code 45-117 [employer] Work Phone: [phone] ALP enzyme act/vol (Bld) 75 U/L Invalid Interpretation Code 45-117 [employer] Work Phone: [phone] Aspartate aminotransferase (AST) 19 U/L Invalid Interpretation Code 15-37 [employer] Work Phone: [phone] Bilirubin (direct) 0.27 mg/dL Invalid Interpretation Code 0.00-0.30 [employer] Work Phone: [phone] Bilirubin (total) 1.00 mg/dL Invalid Interpretation Code 0.20-1.00 [employer] Work Phone: [phone] Globulin 3.1 g/dL Invalid Interpretation Code 2.3-3.5 [employer] Work Phone: [phone] Protein 7.0 g/dL Invalid Interpretation Code 6.4-8.2 [employer] Phone: [phone] Office Visiton 11-08-2016 Documentation of current medications (procedure) Done Invalid Interpretation Code [employer] Work Phone: [phone] Protein mass conc Done Invalid Interpretation Code [facility] Work Phone: [phone] Tobacco smoking status NHIS Never smoker Invalid Interpretation Code [facility] Work Phone: [phone] Tobacco use CPHS Never smoker Invalid Interpretation Code [facility] Work Phone: [phone] Lab Report: Lipid Profileon 07-22-2016 Cholesterol 120 mg/dL 200 [facility] Work Phone: [phone] HDL Cholesterol 44 mg/dL [facility] Work Phone: [phone] LDL Cholesterol 62 mg/dL 0-130 [facility] Work Phone: [phone] Triglyceride 70 mg/dL [facility] Work Phone: [phone] very low density lipoproteins 14 mg/dL 5-40 [facility] Work Phone: [phone] Lab Report: Liver Profileon 07-22-2016 Alanine aminotransferase (ALT) 53 U/L 12-78 [facility] Work Phone: [phone] Albumin 4.1 g/dL 3.4-5.0 [facility] Work Phone: [phone] Alkaline phosphatase (ALP) 70 U/L Invalid Interpretation Code 45-117 [facility] Work Phone: [phone] ALP enzyme act/vol (Bld) 70 U/L 45-117 [facility] Work Phone: [phone] Aspartate aminotransferase (AST) 23 U/L 15-37 [facility] Work Phone: [phone] Bilirubin (direct) 0.21 mg/dL 0.00-0.30 [facility] Work Phone: [phone] Bilirubin (total) 1.00 mg/dL 0.20-1.00 [facility] Work Phone: [phone] Globulin 3.1 g/dL Invalid Interpretation Code 2.3-3.5 [facility] Work Phone: [phone] Globulin mass conc (S) 3.1 g/dL 2.3-3.5 [facility] Work Phone: [phone] Protein 7.2 g/dL 6.4-8.2 [facility] Work Phone: [phone] Office Visiton 04-14-2016 Dietary management education, guidance, and counseling (procedure) yes Invalid Interpretation Code [facility] Work Phone: [phone] Documentation of current medications (procedure) Done Invalid Interpretation Code [facility] Work Phone: [phone] Clinical Lists Update: [facility]04-09-2016 Left ventricular Ejection fraction 48 % Invalid Interpretation Code [facility] Work Phone: [phone] Office Visiton 04-04-2015 Tobacco use CPHS Never smoker Invalid Interpretation Code [facility] Work Phone: [phone] Office Visiton 04-12-2014 cardiac risk group C Invalid Interpretation Code [facility] Work Phone: [phone] General cardiovascular disease 10Y risk [#] [place] o N/A Invalid Interpretation Code [facility] Work Phone: [phone] Lab Report: [facility] 12-09-19 14 ALK 83 U/L Normal 45-117 [facility] Work Phone: [phone] GE use only - for [employer] import when terms are not otherwise specified 83 U/L Normal 45-117 [facility] Work Phone: [phone] Clinical Lists Update: [facility] 06-15-2013 Anion gap 4 mmol/L Invalid Interpretation Code [facility] Work Phone: [phone] Anion gap 4 molar conc 4 Invalid Interpretation Code [facility] Work Phone: [phone] Anion gap molar conc 4 mmol/L [facility] Work Phone: [phone] BUN/Creatinine Ratio 19.0 mg/mg Invalid Interpretation Code [facility] Work Phone: [phone] Calcium 8.8 mg/dL Invalid Interpretation Code [facility] Work Phone: [phone] Chloride 105 mmol/L Invalid Interpretation Code [facility] Work Phone: [phone] CO2 29.0 mmol/L Invalid Interpretation Code [facility] Work Phone: [phone] CO2 ppres (BldV) 29.0 mmol/L Invalid Interpretation Code [facility] Work Phone: [phone] Creatinine 1.0 mg/dL Invalid Interpretation Code [facility] Work Phone: [phone] Erythrocytes (RBC) 4.62 10*6/uL Invalid Interpretation Code [facility] Work Phone: [phone] Glucose 89 mg/dL Invalid Interpretation Code [facility] Work Phone: [phone] Glucose mass conc 89 mg/dL Invalid Interpretation Code [facility] Work Phone: [phone] Hematocrit (HCT) 40.8 % Invalid Interpretation Code [facility] Work Phone: [phone] Hematocrit Volume Fraction (Bld) 40.8 % [facility] Work Phone: [phone] Hemoglobin mass conc (Bld) 13.6 g/dL Invalid Interpretation Code [facility] Work Phone: [phone] MCH 29.4 pg Invalid Interpretation Code [facility] Work Phone: [phone] MCH Entitic mass (RBC) 29.4 pg [facility] Work Phone: [phone] MCV 88.3 fL Invalid Interpretation Code [facility] Work Phone: [phone] MCV Entitic volume (RBC) 88.3 fL [facility] Work Phone: [phone] Platelets 262 10*3/mm3 Invalid Interpretation Code [facility] Work Phone: [phone] Platelets #/vol (Bld) 262 10*3/mm3 [facility] Work Phone: [phone] Potassium molar conc 3.7 mmol/L Invalid Interpretation Code [facility] Work Phone: [phone] RBC #/vol (Bld) 4.62 10*6/uL [facility] Work Phone: [phone] Sodium 138 mmol/L Invalid Interpretation Code [facility] Work Phone: [phone] Urea nitrogen 19 mg/dL Invalid Interpretation Code [facility] Work Phone: [phone] WBC #/vol (Bld) 8.1 10*3/uL [facility] Work Phone: [phone] WBC (Leukocytes) 8.1 10*3/uL Invalid Interpretation Code [facility] Work Phone: [phone] Replaced Document: Rey CARBONE Observationson 04-26-2013 EKG QRS axis -17 deg Invalid Interpretation Code [facility] Work Phone: [phone] electrocardiogram interpretation Sinus Rhythm -Inferior infarct -age undetermined . ABNORMAL Invalid Interpretation Code [facility] Work Phone: [phone] Interpretation Sinus Rhythm -Inferi or infarct -age undetermined . ABNORMAL Invalid Interpretation Code [facility] Work Phone: [phone] P [place] 14 deg Invalid Interpretation Code [facility] Work Phone: [phone] P wave axis, electrocardiogram 14 deg Invalid Interpretation Code [facility] Work Phone: [phone] VT Interval 162 ms Invalid Interpretation Code [facility] Work Phone: [phone] VT interval, electrocardiogram 162 ms Invalid Interpretation Code [facility] Work Phone: [phone] Pulse (Heart Rate) 407 ms Invalid Interpretation Code [facility] Work Phone: [phone] Pulse (Heart Rate) 71 /min Invalid Interpretation Code [facility] Work Phone: [phone] QRS axis, electrocardiogram -17 deg Invalid Interpretation Code [facility] Phone: [phone] QRS Duration 104 ms Invalid Interpretation Code [facility] Phone: [phone] QRS duration, electrocardiogram 104 ms Invalid Interpretation Code [facility] Phone: [phone] QT Interval new path ms Invalid Interpretation Code [facility] Work Phone: [phone] QT interval, electrocardiogram new path ms Invalid Interpretation Code [facility] Work Phone: [phone] T [place] -43 deg Invalid Interpretation Code [facility] Phone: [phone] T wave axis, electrocardiogram -43 deg Invalid Interpretation Code [facility] Phone: [phone] Clinical Lists Update: Prel[employer] agent 04-17-2013 Erythrocyte distribution width Auto Ratio (RBC) 13.8 % Invalid Interpretation Code [facility] Phone: [phone] Erythrocyte distribution width Ratio (RBC) 13.8 % [facility] Work Phone: [phone] MCHC mass conc (RBC) 34.2 g/dL Invalid Interpretation Code [facility] Work Phone: [phone] MCHC mass conc (RBC) 34.2 g/dL [facility] Work Phone: [phone] Vital Signs Date Time Vital Sign Value Performing Clinician Facility 06-01-2024 15:55-0500 Diastolic blood pressure 70 mm[Hg] Raymond Lu MD Work Phone: [facility] 06-01-2024 15:55-0500 Systolic blood pressure 126 mm[Hg] Raymond Lu MD Work Phone: [facility] 06-01-2024 15:31-0500 Body height 181.6 cm Raymond Lu MD Work Phone: [facility] 06-01-2024 15:31-0500 Body mass index (BMI) [Ratio] 34.38 kg/m2 Raymond Lu MD Work Phone: [facility] 06-01-2024 15:31-0500 Body weight 113.4 kg Raymond Lu MD Work Phone: [facility] 06-01-2024 15:31-0500 Heart rate 73 /min Raymond Lu MD Work Phone: [facility] 06-01-2024 15:31-0500 SaO2% (BldA) [Mass fraction] 95 % Raymond Lu MD Work Phone: [facility] 12-22-2023 09:45-0400 Body height 180.3 cm Loraine Mcneill VEHICLE TECHNICIAN Work Phone: [facility] 12-22-2023 09:45-0400 Body mass index (BMI) [Ratio] 34.73 kg/m2 Loraine Mcneill VEHICLE TECHNICIAN Work Phone: [facility] 12-22-2023 09:45-0400 Body weight 112.95 kg Loraine Mcneill VEHICLE TECHNICIAN Work Phone: [facility] 12-22-2023 09:45-0400 Diastolic blood pressure 90 mm[Hg] Loraine Mcneill VEHICLE TECHNICIAN Work Phone: [facility] 12-22-2023 09:45-0400 Heart rate 64 /min Loraine Mcneill VEHICLE TECHNICIAN Work Phone: [facility] 12-22-2023 09:45-0400 SaO2% (BldA) [Mass fraction] 97 % Loraine Mcneill VEHICLE TECHNICIAN Work Phone: [facility] 12-22-2023 09:45-0400 Systolic blood pressure 142 mm[Hg] Loraine Mcneill VEHICLE TECHNICIAN Work Phone: [facility] 09-26-2023 18:51-0400 Body mass index (BMI) [Ratio] 33.7 kg/m2 Raymond Lu MD Work Phone: [facility] 09-26-2023 18:51-0400 Body weight 111.13 kg Raymond Lu MD Work Phone: [facility] 09-26-2023 18:51-0400 Diastolic blood pressure 78 mm[Hg] Raymond Lu MD Work Phone: [facility] 09-26-2023 18:51-0400 Heart rate 77 /min Raymond Lu MD Work Phone: [facility] 09-26-2023 18:51-0400 SaO2% (BldA) [Mass fraction] 95 % Raymond Lu MD Work Phone: [facility] 09-26-2023 18:51-0400 Systolic blood pressure 132 mm[Hg] Raymond Lu MD Work Phone: [facility] 03-23-2022 11:44-0500 Body height 181.6 cm Pulm Wstr Work Phone: [facility] 03-23-2022 11:44-0500 Body weight 113.85 kg Pulm Wstr Work Phone: [facility] 03-23-2022 11:44-0500 Heart rate 77 /min Pulm Wstr Work Phone: [facility] 03-23-2022 11:44-0500 Respiratory rate 14 /min Pulm Wstr Work Phone: [facility] 03-23-2022 11:44-0500 SaO2% (BldA) [Mass fraction] 97 % Pulm Wstr Work Phone: [facility] 03-01-2022 14:15-0500 Diastolic blood pressure 86 mm[Hg] Raymond Lu MD Work Phone: [facility] 03-01-2022 14:15-0500 Systolic blood pressure 138 mm[Hg] Raymond Lu MD Work Phone: [facility] 03-01-2022 13:48-0500 Body height 181.6 cm Raymond Lu MD Work Phone: [facility] 03-01-2022 13:48-0500 Body weight 114.31 kg Raymond Lu MD Work Phone: [facility] 03-01-2022 13:48-0500 Heart rate 75 /min Raymond Lu MD Work Phone: [facility] 03-01-2022 13:48-0500 SaO2% (BldA) [Mass fraction] 97 % Raymond Lu MD Work Phone: [facility] 08-27-2021 13:46-0400 Body weight 112.95 kg Raymond Lu MD Work Phone: [facility] 08-27-2021 13:46-0400 Diastolic blood pressure 82 mm[Hg] Raymond Lu MD Work Phone: [facility] 08-27-2021 13:46-0400 Heart rate 72 /min Raymond Lu MD Work Phone: [facility] 08-27-2021 13:46-0400 Systolic blood pressure 142 mm[Hg] Raymond Lu MD Work Phone: [facility] 11-08-2016 16:08-0400 BMI (Body Mass Index) 30.68 kg/m2 [facility] Work Phone: 11-08-2016 16:08-0400 BP Diastolic 80 mm[Hg] [facility] Work Phone: 11-08-2016 16:08-0400 BP Systolic 132 mm[Hg] Severino Quiroga [facility] Work Phone: 11-08-2016 16:08-0400 Height 180.34 cm Severino Quiroga [facility] Work Phone: 11-08-2016 16:08-0400 Pulse (Heart Rate) 84 /min Severino Quiroga [facility] Work Phone: 11-08-2016 16:08-0400 Respiratory Rate 14 /min [facility] Work Phone: 11-08-2016 16:08-0400 Weight 99.79 kg Severino Quiroga [facility] Work Phone: 04-14-2016 16:24-0500 BMI (Body Mass Index) 31.38 kg/m2 Dayna Ng [facility] Work Phone: 04-14-2016 16:24-0500 BP Diastolic 88 mm[Hg] Dayna DeFinis [facility] Work Phone: 04-14-2016 16:24-0500 BP Systolic 140 mm[Hg] Breezyumi DeFinis [facility] Work Phone: 04-14-2016 16:24-0500 BSA (Body Surface Area) 2.22 m2 Harfang DeFinis [facility] Work Phone: 04-14-2016 16:24-0500 Pulse (Heart Rate) 72 /min Harumi DeFinis [facility] Work Phone: 04-14-2016 16:24-0500 Respiratory Rate 14 /min Harfang DeFinis [facility] Work Phone: 04-14-2016 16:24-0500 Weight 102.06 kg Harumi DeFinis [facility] Work Phone: 06-08-2013 11:30-0400 BP Diastolic 82 mm[Hg] Harumi DeFinis [facility] Work Phone: 06-08-2013 11:30-0400 BP Systolic 124 mm[Hg] Dayna [facility] Work Phone: 04-26-2013 10:35-0500 Heart rate 71 /min Severino [facility] Work Phone: 04-26-2013 10:35-0500 Heart rate 407 ms Severino Quiroga [facility] Work Phone: 04-26-2013 10:12-0500 Height 180.34 cm Dayna [facility] Work Phone: Encounters Encounter Date Encounter Type Care Provider Facility Start: 12-18-2024 End: 12-18-2024 ambulatory RAYMOND LU Facility:[facility] Start: 12-17-2024 End: 12-17-2024 ambulatory RAYMOND LU Facility:[facility] Start: 12-14-2024 End: 12-14-2024 ambulatory RAYMOND LU Facility:[facility] Start: 10-16-2024 End: 10-16-2024 ambulatory RAYMOND MCCRAY JR Facility:[facility] Start: 10-05-2024 End: 10-05-2024 Telephone encounter Raymond Mccray MD Work Phone: Sleep Comment on above: cpap compliance Start: 08-21-2024 End: 08-21-2024 Telephone encounter Raymond Lu MD Work Phone: [facility] Comment on above: Medication Request Start: 06-01-2024 End: 06-01-2024 ambulatory RAYMOND LU Facility: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, unspecified vessel or lesion type (Primary Dx); Primary hypertension; Hyperlipidemia, unspecified hyperlipidemia type; Sleep apnea, unspecified type; RLS (restless legs syndrome); Screening for prostate cancer; Screening for depression; Encounter for screening examination for other mental health and behavioral disorders; Bilateral hearing loss, unspecified hearing loss type Start: 03-16-2024 End: 03-16-2024 Chart abstracting Kate Santamaria MA [facility] Start: 03-16-2024 End: 03-16-2024 ambulatory Billy Gavin Facility:[facility] Start: 02-06-2024 End: 02-06-2024 ambulatory [facility] Facility:[facility] Start: 12-22-2023 End: 12-22-2023 Bamboo flowsheet Loraine Mcneill VEHICLE TECHNICIAN Work Phone: [facility] Start: 12-22-2023 End: 12-22-2023 Bamboo flowsheet Loraine Roberts Wedebit VEHICLE TECHNICIAN Work Phone: [facility] Start: 12-22-2023 End: 12-22-2023 Office outpatient visit 25 minutes Loraine Mcneill VEHICLE TECHNICIAN Work Phone: [facility] Comment on above: ALEXANDRA (obstructive sle ep apnea) (Primary Dx); Insomnia, unspecified type Start: 12-19-2023 End: 12-19-2023 Telephone encounter Raymond Lu MD Work Phone: [facility] Comment on above: [facility] labs [facility] Start: 11-21-2023 End: 11-21-2023 Telephone encounter Raymond Lu MD Work Phone: [facility] Comment on above: Results Start: 11-21-2023 End: 11-21-[address] [facility] Facility:[facility] Start: 09-26-2023 End: 09-26-2023 Patient encounter procedure Raymond Lu MD Work Phone: [facility] Comment on above: Coronary artery dise ase involving tolowa dee-ni' heart without angina pectoris, unspecified vessel or lesion type (Primary Dx); RLS (restless legs syndrome); Primary hypertension; Hyperlipidemia, unspecified hyperlipidemia type; Sleep apnea, unspecified type; Screening for colon cancer; Screening for prostate cancer Start: 05-20-2023 End: 05-20-2023 ambulatory Raymond Lu MD Work Phone: [facility] Comment on above: sheet on meds COVID-19 (Primary Dx ) Start: 05-20-2023 E-mail encounter fro m caregiver Raymond Lu MD Work Phone: [facility] Start: 05-20-2023 End: 05-20-2023 Telemedicine consultation with patient Raymond Lu MD Work Phone: [facility] Start: 05-10-2023 Telephone encounter Hany lambert MD Work Phone: [facility] Start: 04-11-2023 End: 04-11-2023 ambulatory LORAINE MCNEILL Not Available Start: 12-10-2022 Refill Raymond Lu MD Work Phone: [facility] Comment on above: Refill Request Start: 11-11-2022 End: 11-12-2022 ambulatory NO PCP AA NO PCP [facility] Start: 03-23-2022 End: 03-23-2022 ambulatory Pulm [facility] Work Phone: [facility] Comment on above: Spirometry Start: 03-23-2022 End: 03-23-2022 Patient encounter procedure [facility] Work Phone: [facility] Start: 03-01-2022 End: 03-01-2022 Patient encounter procedure Raymond Lu MD Work Phone: [facility] Comment on above: Primary hypertension (Primary Dx); Encounter for immunization; Coronary artery disease involving tolowa dee-ni' heart without angina pectoris, unspecified vessel or lesion type; Hyperlipidemia, unspecified hyperlipidemia type; Sleep apnea, unspecified type; RLS (restless legs syndrome); Need for influenza vaccination; Cough, unspecified type Start: 08-27-2021 End: 08-27-2021 Patient encounter procedure Raymond Lu MD Work Phone: [facility] Comment on above: Primary hypertension (Primary Dx); RLS (restless legs syndrome); Coronary artery disease involving tolowa dee-ni' heart without angina pectoris, unspecified vessel or lesion type; Hyperlipidemia, unspecified hyperlipidemia type; Sleep apnea, unspecified type Procedures Date Procedure Procedure Detail Performing Clinician Start: 06-01-2024 Adult depression screening assessment Raymond Lu MD Work Phone: Start: 03-16-2024 LDL CHOLESTEROL DIRECT (FOR REMOTE [facility] USE) [facility] Provider Start: 03-25-2022 Lipid 1996 panel - Serum or Plasma Raymond Lu MD Work Phone: Start: 03-23-2022 Brncdilat rspse spmtry pre&post-brncdilat admn Raymond Lu MD Work Phone: Start: 03-01-2022 INFLUENZA VACCINE QUADRIVALENT 6 MO - 64 YRS IM Raymond Lu MD Work Phone: Start: 03-01-2022 [employer] COVID-19 BIVALENT BOOSTER VACCINE, AGE 12+ YR Raymond Lu MD Work Phone: Start: 08-27-2021 Adult depression screening assessment Raymond Lu MD Work Phone: Start: 12-27-2016 End: 12-27-2016 *Hepatic Function Panel Steven Duron MD Start: 12-27-2016 End: 12-27-2016 Lipid 1996 panel - Serum or Plasma Steven Duron MD Start: 12-27-2016 End: 12-27-2016 *Hepatic Function Panel Steven Duron MD Start: 12-27-2016 End: 12-27-2016 Lipid panel [AGGREGATE] Steven Duron MD Start: 11-08-2016 End: 11-08-2016 Follow Up Appt 6 months Steven Duron MD Start: 11-08-2016 End: 11-08-2016 PFM Steven Duron MD Start: 11-08-2016 End: 11-08-2016 Follow Up Appt 6 months Steven Duron MD Start: 11-08-2016 End: 11-08-2016 PFM Steven Duron MD Start: 07-19-2016 End: 07-22-2016 *Hepatic Function Panel Steven Duron MD Start: 07-19-2016 End: 07-22-2016 Lipid 1996 panel - Serum or Plasma Steven Duron MD Start: 07-19-2016 End: 07-22-2016 *Hepatic Function Panel Steven Duron MD Start: 07-19-2016 End: 07-22-2016 Lipid panel [AGGREGATE] Steven Duron MD Start: 04-14-2016 End: 04-14-2016 Dietary management education, guidance, and counseling Severino Quiroga Start: 04-14-2016 End: 04-14-2016 Follow Up Appt 6 months Steven Duron MD Start: 04-14-2016 End: 04-14-2016 PFM Steven Duron MD Start: 04-14-2016 End: 04-14-2016 Follow Up Appt 6 months Steven Duron MD Start: 04-14-2016 End: 04-14-2016 PFM Steven Duron MD Start: 01-20-2016 End: 01-24-2016 *Hepatic Function Panel Steven Duron MD Start: 01-20-2016 End: 01-24-2016 Lipid 1996 panel - Serum or Plasma Steven Duron MD Start: 01-20-2016 End: 01-24-2016 *Hepatic Function Panel Steven Duron MD Start: 01-20-2016 End: 01-24-2016 Lipid panel [AGGREGATE] Steven Duron MD Start: 10-13-2015 End: 10-13-2015 Follow Up Appt 6 months Steven Duron MD Start: 10-13-2015 End: 10-13-2015 PFM Steven Duron MD Start: 10-13-2015 End: 10-13-2015 Follow Up Appt 6 months Steven Duron MD Start: 10-13-2015 End: 10-13-2015 PFM Steven Duron MD Start: 07-15-2015 End: 07-21-2015 *Hepatic Function Panel Steven Duron MD Start: 07-15-2015 End: 07-21-2015 Lipid 1996 panel - Serum or Plasma Steven Duron MD Start: 07-15-2015 End: 07-21-2015 *Hepatic Function Panel Steven Duron MD Start: 07-15-2015 End: 07-21-2015 Lipid panel [AGGREGATE] Steven Duron MD Start: 04-04-2015 End: 04-04-2015 Follow Up Appt 6 months Steven Duron MD Start: 04-04-2015 End: 04-04-2015 PFM Steven Duron MD Start: 04-04-2015 End: 04-04-2015 Follow Up Appt 6 months Steven Duron MD Start: 04-04-2015 End: 04-04-2015 PFM Steven Duron MD Start: 01-07-2015 End: 01-13-2015 *Hepatic Function Panel Steven Duron MD Start: 01-07-2015 End: 01-13-2015 Lipid 1996 panel - Serum or Plasma Steven Duron MD Start: 01-07-2015 End: 01-13-2015 *Hepatic Function Panel Steven Duron MD Start: 01-07-2015 End: 01-13-2015 Lipid panel [AGGREGATE] Steven Duron MD Start: 10-11-2014 End: 01-13-2015 *Hepatic Function Panel Steven Duron MD Start: 10-11-2014 End: 10-11-2014 Follow Up Appt 6 months Steven Duron MD Start: 10-11-2014 End: 01-13-2015 Lipid 1996 panel - Serum or Plasma Steven Duron MD Start: 10-11-2014 End: 10-11-2014 PFM Steven Duron MD Start: 10-11-2014 End: 01-13-2015 *Hepatic Function Panel Steven Duron MD Start: 10-11-2014 End: 10-11-2014 Follow Up Appt 6 months Steven Duron MD Start: 10-11-2014 End: 01-13-2015 Lipid panel [AGGREGATE] Steven Duron MD Start: 10-11-2014 End: 10-11-2014 PFM Steven Duron MD Start: 06-10-2014 End: 07-08-2014 *Hepatic Function Panel Steven Duron MD Start: 06-10-2014 End: 07-08-2014 Lipid 1996 panel - Serum or Plasma Steven Duron MD Start: 06-10-2014 End: 07-08-2014 *Hepatic Function Panel Steven Duron MD Start: 06-10-2014 End: 07-08-2014 Lipid panel [AGGREGATE] Steven Duron MD Start: 04-12-2014 End: 04-13-2014 Documentation of current medications Steven Duron MD Start: 04-12-2014 End: 04-12-2014 Follow Up Appt 6 months Steven Duron MD Start: 04-12-2014 End: 04-12-2014 PFM Steven Duron MD Start: 04-12-2014 End: 04-13-2014 Documentation of current medications Steven Duron MD Start: 04-12-2014 End: 04-12-2014 Follow Up Appt 6 months Steven Duron MD Start: 04-12-2014 End: 04-12-2014 PFM Steven Duron MD Start: 12-10-2013 End: 2014 *Hepatic Function Panel Steven Duron MD Start: 12-10-2013 End: 12-10-2013 Follow Up Appt 4 months Steven Duron MD Start: 12-10-2013 End: 2014 Lipid 1996 panel - Serum or Plasma Steven Duron MD Start: 12-10-2013 End: 12-10-2013 PFM Steven Duron MD Start: 12-10-2013 End: 2014 *Hepatic Function Panel Steven Duron MD Start: 12-10-2013 End: 12-10-2013 Follow Up Appt 4 months Steven Duron MD Start: 12-10-2013 End: 2014 Lipid panel [AGGREGATE] Steven Duron MD Start: 12-10-2013 End: 12-10-2013 PFM Steven Duron MD Start: 09-06-2013 End: 12-10-2013 *Hepatic Function Panel Steven Duron MD Start: 09-06-2013 End: 09-06-2013 Follow Up Appt 3 months Steven Duron MD Start: 09-06-2013 End: 12-10-2013 Lipid 1996 panel - Serum or Plasma Steven Duron MD Start: 09-06-2013 End: 09-06-2013 PFM Steven Duron MD Start: 09-06-2013 End: 12-10-2013 *Hepatic Function Panel Steven Duron MD Start: 09-06-2013 End: 09-06-2013 Follow Up Appt 3 months Steven Duron MD Start: 09-06-2013 End: 12-10-2013 Lipid panel [AGGREGATE] Steven Duron MD Start: 09-06-2013 End: 09-06-2013 PFM Steven Duron MD Start: 06-08-2013 End: 10-21-2016 Arterial exam Steven Duron MD Start: 06-08-2013 End: 10-21-2016 Echocardiography Steven Duron MD Start: 06-08-2013 End: 06-18-2013 Nuclear stress test -exercise Steven Duron MD Start: 06-08-2013 End: 10-21-2016 PFM Steven Duron MD Start: 06-08-2013 End: 10-21-2016 Arterial exam Steven Duron MD Start: 06-08-2013 End: 10-21-2016 Echocardiography Steven Duron MD Start: 06-08-2013 End: 06-18-2013 Nuclear stress test -exercise Steven Duron MD Start: 06-08-2013 End: 10-21-2016 PFM Steven Duron MD Start: 06-07-2013 End: 06-07-2013 *Hepatic Function Panel Steven Duron MD Start: 06-07-2013 End: 06-07-2013 Lipid 1996 panel - Serum or Plasma Steven Duron MD Start: 06-07-2013 End: 06-07-2013 *Hepatic Function Panel Steven Duron MD Start: 06-07-2013 End: 06-07-2013 Lipid panel [AGGREGATE] Steven Duron MD Start: 04-26-2013 End: 05-02-2013 *Hepatic Function Panel Steven Duron MD Start: 04-26-2013 End: 10-21-2016 Cardiac Rehab Steven Duron MD Start: 04-26-2013 End: 10-21-2016 Cardiovascular stress test using treadmill Steven Duron MD Start: 04-26-2013 End: 05-02-2013 Ecg routine ecg w/least 12 lds w/i&r Steven Duron MD Start: 04-26-2013 End: 10-21-2016 Follow Up Appt 6 weeks Steven Duron MD Start: 04-26-2013 End: 05-02-2013 Lipid 1996 panel - Serum or Plasma Steven Duron MD Start: 04-26-2013 End: 10-21-2016 PFM Steven Duron MD Start: 04-26-2013 End: 05-02-2013 *Hepatic Function Panel Steven Duron MD Start: 04-26-2013 End: 10-21-2016 Cardiac Rehab Steven Duron MD Start: 04-26-2013 End: 05-02-2013 Electrocardiogram, complete Steven howard MD Start: 04-26-2013 End: 10-21-2016 Follow Up Appt 6 weeks Steven Duron MD Start: 04-26-2013 End: 10-21-2016 Lipid panel [AGGREGATE] Steven Duron MD Start: 04-26-2013 End: 10-21-2016 PFM Steven Duron MD Start: 04-18-2013 Percutaneous transluminal coronary angioplasty CORONARY ARTERY DISEASE, S/P PTCA Dayna Ng Start: 04-18-2013 Percutaneous transluminal coronary angioplasty CORONARY ARTERY DISEASE, S/P PTCA Severino Quiroga Plan of Treatment Date Care Activity Detail Author Start: 07-11-2035 RSV Vaccine (1 - 1-d ose 75+ series) RSV Vaccine (1 - 1-dose 75+ series) [facility] Start: 11-20-2028 Prostate specific an tigen measurement Prostate Cancer Screening Discussion [facility] Start: 03-25-2027 Lipid 1996 panel - S fel[place] or Plasma Lipid Screening [facility] Start: 03-25-2027 Lipid panel Lipid Screening [facility] Start: 03-25-2027 LIPID SCREEN LIPID SCREEN [facility] Start: 11-20-2026 Diabetes Screening Diabetes Screenin g [facility] Start: 07-30-2025 LIPID SCREEN LIPID SCREEN [facility] Start: 06-01-2025 Annual PCP Team Carrier Blower yandy Disease Visit Annual PCP Team Chronic Disease Visit [facility] Start: 06-01-2025 Anxiety Screening Anxiety Screening [facility] Start: 06-01-2025 BP Controlled (<130/80) BP Controlle d (<130/80) [facility] Start: 06-01-2025 Covid-19 Vaccine () Covid-19 Vaccine () [facility] Comment on above: Postponed from 11/26 (Declined at this time) Start: 06-01-2025 Depression Screening Depression Scre ening [facility] Start: 06-01-2025 Pneumococcal Vaccine : 50+ (1 of 1 - PCV) Pneumococcal Vaccine: 50+ (1 of 1 - PCV) [facility] Comment on above: Postponed from 07/10 (Declined at this time) Start: 06-01-2025 Urine microalbumin profile DTa P,Tdap,Td Vaccine (1 - Tdap) [facility] Comment on above: Postponed from 07/10 (Declined at this time) Start: 03-25-2025 DIABET[facility]CREEN [facility] Start: 03-25-2025 Diabetes Screening Diabetes Screenin g [facility] Start: 03-16-2025 Hepatitis B surface antibody level LDL Cholesterol [facility] Start: 12-14-2024 End: 12-14-2024 Patient encounter procedure 12/14/2024 10:40 AM EDT Office Visit [facility] [address] [place] [address] Raymond Lu MD [address] [place], [place] [id number] 6 month follow up. Fasting labs prior [facility] Comment on above: 6 month follow up. F asting labs prior Start: 12-02-2024 End: 03-03-2025 CBC W Auto Differential panel - Blood COMPLETE BLOOD COUNT AND DIFFERENTIAL Lab Routine Coronary artery disease involving tolowa dee-ni' heart without angina pectoris, unspecified vessel or lesion type Expected: 12/02/2024, Expires: 03/03/2025 [facility] Work Phone: Comment on above: Expected: 12/02/2024 , Expires: 03/03/2025 Start: 12-02-2024 End: 03-03-2025 Comprehensive metabolic 2000 panel - Serum or Plasma COMPREHENSIVE METABOLIC PANEL Lab Routine Coronary artery disease involving tolowa dee-ni' heart without angina pectoris, unspecified vessel or lesion type Expected: 12/02/2024, Expires: 03/03/2025 [facility] Comment on above: Expected: 12/02/2024 , Expires: 03/03/2025 Start: 12-02-2024 End: 03-03-2025 PSA/PROSTATE SPECIFIC ANTIGEN SCREENING PSA/PROSTATE SPECIFIC ANTIGEN SCREENING Lab Routine Screening for prostate cancer Expected: 12/02/2024, Expires: 03/03/2025 [facility] Comment on above: Expected: 12/02/2024 , Expires: 03/03/2025 Start: 11-26-2024 Influenza vaccination C [facility] Start: 10-16-2024 End: 10-16-2024 ambulatory 10/16/2024 10:00 AM EDT [facility] [address] [place] [address] Raymond Mccray Jr., MD [address] [facility] [place] [id number] [facility] Comment on above: [facility] Start: 09-25-2024 Annual PCP Team Carrier Blower yandy Disease Visit Annual PCP Team Chronic Disease Visit [facility] Start: 09-24-2024 Influenza vaccination Influenza Vacc ine (#1) [facility] Comment on above: Postponed from 11/26 (Declined at this time) Start: 06-01-2024 End: 08-31-2024 Lipid 1996 panel - Serum or Plasma LIPID PANEL BASIC Lab Routine Coronary artery disease involving tolowa dee-ni' heart without angina pectoris, unspecified vessel or lesion type Expected: 06/01/2024, Expires: 08/31/2024 [facility] Comment on above: Expected: 06/01/2024 , Expires: 08/31/2024 Start: 05-20-2024 Annual PCP Team Carrier Blower yandy Disease Visit Annual PCP Team Chronic Disease Visit [facility] Start: 04-23-2024 End: 04-23-2024 Patient encounter procedure 04/23/2024 10:00 AM EST Office Visit [facility] [address] [place] [address] Raymond Lu MD [address] [place], [place] [id number] 6 mo f/u [facility] Comment on above: 6 mo f/u Start: 03-27-2024 Behavioral Health Screening Behavioral Health Screening [facility] Comment on above: Postponed from 03/28 (Declined at this time) Start: 03-22-2024 BP Controlled (<130/80) BP Controlle d (<130/80) [facility] Start: 03-22-2024 RSV Vaccine (1 - 1-d ose 60+ series) RSV Vaccine (1 - 1-dose 60+ series) [facility] Comment on above: Postponed from 07/10 (Declined at this time) Start: 03-22-2024 Urine microalbumin profile DTa P,Tdap,Td Vaccine (1 - Tdap) [facility] Comment on above: Postponed from 07/10 (Declined at this time) Start: 12-28-2023 PROSTATE CANCER SCRE ENING DISCUSSION PROSTATE CANCER SCREENING DISCUSSION [facility] Start: 12-28-2023 Prostate specific an tigen measurement Prostate Cancer Screening Discussion [facility] Start: 11-27-2023 Covid-19 Vaccine () Covid-19 Vaccine () [facility] Start: 11-27-2023 Influenza vaccination Influenza Vacc ine (#1) [facility] Start: 11-21-2023 End: 02-20-2024 Hemoglobin A1c in Blood HEMOGLOBIN A1C Lab Routine Hyperglycemia Expected: 11/21/2023, Expires: 02/20/2024 [facility] Work Phone: Comment on above: Expected: 11/21/2023 , Expires: 02/20/2024 Start: 10-13-2023 End: 10-13-2023 Patient encounter procedure 10/13/2023 11:00 AM EDT Office Visit [facility] [address] [place] [id number] Loraine Mcneill NP [address] [place], [place] [id number] [facility] Start: 09-26-2023 End: 12-26-2023 CBC W Auto Differential panel - Blood COMPLETE BLOOD COUNT AND DIFFERENTIAL Lab Routine Primary hypertension Expected: 09/26/2023, Expires: 12/26/2023 [facility] Work Phone: Comment on above: Expected: 09/26/2023 , Expires: 12/26/2023 Start: 09-26-2023 End: 12-26-2023 Comprehensive metabolic 2000 panel - Serum or Plasma COMPREHENSIVE METABOLIC PANEL Lab Routine Primary hypertension Expected: 09/26/2023, Expires: 12/26/2023 [facility] Comment on above: Expected: 09/26/2023 , Expires: 12/26/2023 Start: 09-26-2023 End: 12-26-2023 Magnesium [Mass/volume] in Serum or Plasma MAGNESIUM Lab Routine Primary hypertension Expected: 09/26/2023, Expires: 12/26/2023 [facility] Comment on above: Expected: 09/26/2023 , Expires: 12/26/2023 Start: 09-26-2023 End: 12-26-2023 PSA/PROSTATE SPECIFIC ANTIGEN SCREENING PSA/PROSTATE SPECIFIC ANTIGEN SCREENING Lab Routine Screening for prostate cancer Expected: 09/26/2023, Expires: 12/26/2023 [facility] Comment on above: Expected: 09/26/2023 , Expires: 12/26/2023 Start: 08-09-2023 COLOGUARD (FIT-DNA) COLOGUARD (FIT-D NA) [facility] Start: 08-09-2023 COLORECTAL CANCER SCREENING COLORECTAL CANCER SCREENING [facility] Start: 08-09-2023 Screening for malign ant neoplasm of colon [facility] Start: 07-31-2023 DIABETES SCREEN DIABETES SCREEN [facility] Start: 03-28-2023 [facility] Start: 03-25-2023 Hepatitis B surface antibody level LDL CHOLESTEROL [facility] Start: 03-01-2023 ANNUAL PCP TEAM [employer]ON[employer] WARMER YANDY DISEASE VISIT ANNUAL PCP TEAM CHRONIC DISEASE VISIT [facility] Start: 11-26-2022 Influenza vaccination Influenza Vacc ine (#1) [facility] Start: 08-27-2022 Adult depression scr eening assessment DEPRESSION SCREENING [facility] Start: 08-27-2022 ANNUAL PCP TEAM [employer] W[employer]ER YANDY DISEASE VISIT ANNUAL PCP TEAM CHRONIC DISEASE VISIT [facility] Start: 03-28-2022 Depression Assessment Depression Ass essment [facility] Start: 03-01-2022 End: 05-01-2022 CBC W Auto Differential panel - Blood CBC + DIFF Lab Routine Primary hypertension Hyperlipidemia, unspecified hyperlipidemia type Expected: 03/01/2022, Expires: 05/01/2022 [facility] Work Phone: Comment on above: Expected: 03/01/2022 , Expires: 05/01/2022 Start: 03-01-2022 End: 05-01-2022 Comprehensive metabolic 2000 panel - Serum or Plasma COMP METABOLIC PANEL Lab Routine Primary hypertension Hyperlipidemia, unspecified hyperlipidemia type Expected: 03/01/2022, Expires: 05/01/2022 [facility] Work Phone: Comment on above: Expected: 03/01/2022 , Expires: 05/01/2022 Start: 03-01-2022 End: 05-01-2022 Lipid 1996 panel - Serum or Plasma LIPID PANEL BASIC Lab Routine Primary hypertension Hyperlipidemia, unspecified hyperlipidemia type Expected: 03/01/2022, Expires: 05/01/2022 [facility] Work Phone: Comment on above: Expected: 03/01/2022 , Expires: 05/01/2022 Start: 11-26-2021 Influenza vaccination INFLUENZ A (Season Ended) [facility] Start: 08-27-2021 End: 08-27-2022 CBC W Auto Differential panel - Blood CBC + DIFF Lab Routine Hyperlipidemia, unspecified hyperlipidemia type Expected: 08/27/2021, Expires: 08/27/2022 [facility] Work Phone: Comment on above: Expected: 08/27/2021 , Expires: 08/27/2022 Start: 08-27-2021 End: 08-27-2022 Comprehensive metabolic 2000 panel - Serum or Plasma COMP METABOLIC PANEL Lab Routine Hyperlipidemia, unspecified hyperlipidemia type Expected: 08/27/2021, Expires: 08/27/2022 [facility] Work Phone: Comment on above: Expected: 08/27/2021 , Expires: 08/27/2022 Start: 08-27-2021 End: 08-27-2022 LIPID PANEL BASIC LIPID PANEL BASIC Lab Routine Hyperlipidemia, unspecified hyperlipidemia type Expected: 08/27/2021, Expires: 08/27/2022 [facility] Work Phone: Comment on above: Expected: 08/27/2021 , Expires: 08/27/2022 Start: 07-30-2021 Hepatitis B surface antibody level LDL CHOLESTEROL [facility] Start: 06-16-2021 COVID-19 VACCINE (3 - Booster for [place] series) COVID-19 VACCINE (3 - Booster for [place] series) [facility] Start: 12-28-2019 FECAL OCCULT BLOOD FECAL OCCULT BLOO D [facility] Start: 12-28-2019 Screening for malign ant neoplasm of colon [facility] Start: 07-04-2017 End: 07-04-2017 Appointment Appointment [facility] Work Phone: Start: 06-27-2017 End: 12-30-2016 *Hepatic Function Panel *Hepatic Function Panel [facility] Work Phone: Start: 06-27-2017 End: 12-30-2016 Lipid 1996 panel *Lipid Profile CC PCP [facility] Work Phone: Start: 01-21-2017 End: 12-27-2016 *Hepatic Function Panel *Hepatic Function Panel [facility] Work Phone: Start: 01-21-2017 End: 12-27-2016 Lipid panel [AGGREGATE] *Lipid Profile CC PCP [facility] Work Phone: Start: 01-21-2017 End: 12-27-2016 *Hepatic Function Panel *Hepatic Function Panel [facility] Work Phone: Start: 01-21-2017 End: 12-27-2016 Lipid panel [AGGREGATE] *Lipid Profile CC PCP [facility] Work Phone: Start: 11-08-2016 End: 11-08-2016 Appointment Appointment [facility] Work Phone: Start: 11-08-2016 End: 11-08-2016 Appointment Appointment [facility] Work Phone: Start: 11-08-2016 End: 11-08-2016 Follow Up Appt 6 months Follow Up Appt 6 months [facility] Work Phone: Start: 11-08-2016 End: 11-08-2016 PFM PFM [facility] Work Phone: Start: 11-08-2016 End: 11-08-2016 Follow Up Appt 6 months Follow Up Appt 6 months [facility] Work Phone: Start: 11-08-2016 End: 11-08-2016 PFM PFM [facility] Work Phone: Start: 07-19-2016 End: 07-22-2016 *Hepatic Function Panel *Hepatic Function Panel [facility] Work Phone: Start: 07-19-2016 End: 07-22-2016 Lipid panel [AGGREGATE] *Lipid Profile CC PCP [facility] Work Phone: Start: 07-19-2016 End: 07-22-2016 *Hepatic Function Panel *Hepatic Function Panel [facility] Work Phone: Start: 07-19-2016 End: 07-22-2016 Lipid panel [AGGREGATE] *Lipid Profile CC PCP [facility] Work Phone: Start: 04-14-2016 End: 04-14-2016 Follow Up Appt 6 months Follow Up Appt 6 months [facility] Work Phone: Start: 04-14-2016 End: 04-14-2016 PFM PFM [facility] Work Phone: Start: 04-14-2016 End: 04-14-2016 Follow Up Appt 6 months Follow Up Appt 6 months [facility] Work Phone: Start: 04-14-2016 End: 04-14-2016 PFM PFM [facility] Work Phone: Start: 01-20-2016 End: 01-24-2016 *Hepatic Function Panel *Hepatic Function Panel [facility] Work Phone: Start: 01-20-2016 End: 01-24-2016 Lipid panel [AGGREGATE] *Lipid Profile CC PCP [facility] Work Phone: Start: 01-20-2016 End: 01-24-2016 *Hepatic Function Panel *Hepatic Function Panel [facility] Work Phone: Start: 01-20-2016 End: 01-24-2016 Lipid panel [AGGREGATE] *Lipid Profile CC PCP [facility] Work Phone: Start: 10-13-2015 End: 10-13-2015 Follow Up Appt 6 months Follow Up Appt 6 months [facility] Work Phone: Start: 10-13-2015 End: 10-13-2015 PFM PFM [facility] Work Phone: Start: 10-13-2015 End: 10-13-2015 Follow Up Appt 6 months Follow Up Appt 6 months [facility] Work Phone: Start: 10-13-2015 End: 10-13-2015 PFM PFM [facility] Work Phone: Start: 07-15-2015 End: 07-21-2015 *Hepatic Function Panel *Hepatic Function Panel [facility] Work Phone: Start: 07-15-2015 End: 07-21-2015 Lipid panel [AGGREGATE] *Lipid Profile CC PCP [facility] Work Phone: Start: 07-15-2015 End: 07-21-2015 *Hepatic Function Panel *Hepatic Function Panel [facility] Work Phone: Start: 07-15-2015 End: 07-21-2015 Lipid panel [AGGREGATE] *Lipid Profile CC PCP [facility] Work Phone: Start: 04-04-2015 End: 04-04-2015 Follow Up Appt 6 months Follow Up Appt 6 months [facility] Work Phone: Start: 04-04-2015 End: 04-04-2015 PF PF [facility] Work Phone: Start: 04-04-2015 End: 04-04-2015 Follow Up Appt 6 months Follow Up Appt 6 months [facility] Work Phone: Start: 04-04-2015 End: 04-04-2015 PF PFM [facility] Work Phone: Start: 01-07-2015 End: 01-13-2015 *Hepatic Function Panel *Hepatic Function Panel [facility] Work Phone: Start: 01-07-2015 End: 01-13-2015 Lipid panel [AGGREGATE] *Lipid Profile CC PCP [facility] Work Phone: Start: 01-07-2015 End: 01-13-2015 *Hepatic Function Panel *Hepatic Function Panel [facility] Work Phone: Start: 01-07-2015 End: 01-13-2015 Lipid panel [AGGREGATE] *Lipid Profile CC PCP [facility] Work Phone: Start: 10-11-2014 End: 01-13-2015 *Hepatic Function Panel *Hepatic Function Panel [facility] Work Phone: Start: 10-11-2014 End: 10-11-2014 Follow Up Appt 6 months Follow Up Appt 6 months [facility] Work Phone: Start: 10-11-2014 End: 01-13-2015 Lipid panel [AGGREGATE] *Lipid Profile CC PCP [facility] Work Phone: Start: 10-11-2014 End: 10-11-2014 PFM PFM [facility] Work Phone: Start: 10-11-2014 End: 01-13-2015 *Hepatic Function Panel *Hepatic Function Panel [facility] Work Phone: Start: 10-11-2014 End: 10-11-2014 Follow Up Appt 6 months Follow Up Appt 6 months [facility] Work Phone: Start: 10-11-2014 End: 01-13-2015 Lipid panel [AGGREGATE] *Lipid Profile CC PCP [facility] Work Phone: Start: 10-11-2014 End: 10-11-2014 PFM PFM [facility] Work Phone: Start: 06-10-2014 End: 07-08-2014 *Hepatic Function Panel *Hepatic Function Panel [facility] Work Phone: Start: 06-10-2014 End: 07-08-2014 Lipid panel [AGGREGATE] *Lipid Profile CC PCP [facility] Work Phone: Start: 06-10-2014 End: 07-08-2014 *Hepatic Function Panel *Hepatic Function Panel [facility] Work Phone: Start: 06-10-2014 End: 07-08-2014 Lipid panel [AGGREGATE] *Lipid Profile CC PCP [facility] Work Phone: Start: 04-12-2014 End: 04-12-2014 Follow Up Appt 6 months Follow Up Appt 6 months [facility] Work Phone: Start: 04-12-2014 End: 04-12-2014 PFM PFM [facility] Work Phone: Start: 04-12-2014 End: 04-12-2014 Follow Up Appt 6 months Follow Up Appt 6 months [facility] Work Phone: Start: 04-12-2014 End: 04-12-2014 PFM PFM [facility] Work Phone: Start: 12-10-2013 End: 2014 *Hepatic Function Panel *Hepatic Function Panel [facility] Work Phone: Start: 12-10-2013 End: 12-10-2013 Follow Up Appt 4 months Follow Up Appt 4 months [facility] Work Phone: Start: 12-10-2013 End: 2014 Lipid panel [AGGREGATE] *Lipid Profile CC PCP [facility] Work Phone: Start: 12-10-2013 End: 12-10-2013 PF PF [facility] Work Phone: Start: 12-10-2013 End: 2014 *Hepatic Function Panel *Hepatic Function Panel [facility] Work Phone: Start: 12-10-2013 End: 12-10-2013 Follow Up Appt 4 months Follow Up Appt 4 months [facility] Work Phone: Start: 12-10-2013 End: 2014 Lipid panel [AGGREGATE] *Lipid Profile CC PCP [facility] Work Phone: Start: 12-10-2013 End: 12-10-2013 PFM PFM [facility] Work Phone: Start: 09-06-2013 End: 12-10-2013 *Hepatic Function Panel *Hepatic Function Panel [facility] Work Phone: Start: 09-06-2013 End: 09-06-2013 Follow Up Appt 3 months Follow Up Appt 3 months [facility] Work Phone: Start: 09-06-2013 End: 12-10-2013 Lipid panel [AGGREGATE] *Lipid Profile CC PCP [facility] Work Phone: Start: 09-06-2013 End: 09-06-2013 PFM PFM [facility] Work Phone: Start: 09-06-2013 End: 12-10-2013 *Hepatic Function Panel *Hepatic Function Panel [facility] Work Phone: Start: 09-06-2013 End: 09-06-2013 Follow Up Appt 3 months Follow Up Appt 3 months [facility] Work Phone: Start: 09-06-2013 End: 12-10-2013 Lipid panel [AGGREGATE] *Lipid Profile CC PCP [facility] Work Phone: Start: 09-06-2013 End: 09-06-2013 PFM PFM [facility] Work Phone: Start: 06-08-2013 End: 06-07-2013 *Hepatic Function Panel *Hepatic Function Panel [facility] Work Phone: Start: 06-08-2013 End: 06-08-2013 Arterial exam Arterial exam [facility] Work Phone: Start: 06-08-2013 End: 06-18-2013 Echocardiography Echocardiogram (complete) [facility] Work Phone: Start: 06-08-2013 End: 10-21-2016 Follow Up Appt 3 months Follow Up Appt 3 months [facility] Work Phone: Start: 06-08-2013 End: 06-07-2013 Lipid panel [AGGREGATE] *Lipid Profile CC PCP [facility] Work Phone: Start: 06-08-2013 End: 06-08-2013 Nuclear stress test -exercise Nuclear stress test -exercise [facility] Phone: Start: 06-08-2013 End: 10-21-2016 PFM [facility]FM [facility] Work Phone: Start: 06-08-2013 End: 06-07-2013 *Hepatic Function Panel *Hepatic Function Panel [facility] Work Phone: Start: 06-08-2013 End: 06-08-2013 Arterial exam Arterial exam [facility] Work Phone: Start: 06-08-2013 End: 06-08-2013 Echocardiography Echocardiogram (complete) [facility] Work Phone: Start: 06-08-2013 End: 10-21-2016 Follow Up Appt 3 months Follow Up Appt 3 months [facility] Phone: Start: 06-08-2013 End: 06-07-2013 Lipid panel [AGGREGATE] *Lipid Profile CC PCP [facility] Work Phone: Start: 06-08-2013 End: 06-08-2013 Nuclear stress test -exercise Nuclear stress test -exercise [facility] Phone: Start: 06-08-2013 End: 10-21-2016 PFM PFM [facility] Work Phone: Start: 04-26-2013 End: 05-02-2013 *Hepatic Function Panel *Hepatic Function Panel [facility] Work Phone: Start: 04-26-2013 End: 10-21-2016 Cardiac Rehab Cardiac Rehab [facility] Work Phone: Start: 04-26-2013 End: 04-27-2013 Cardiovascular stress test using treadmill Treadmill stress test (no imaging) [facility] Phone: Start: 04-26-2013 End: 04-26-2013 Ecg routine ecg w/least 12 lds w/i&r EKG (In office) [facility] Phone: Start: 04-26-2013 End: 10-21-2016 Follow Up Appt 6 weeks Follow Up Appt 6 weeks [facility] Work Phone: Start: 04-26-2013 End: 05-02-2013 Lipid panel [AGGREGATE] *Lipid Profile CC PCP [facility] Work Phone: Start: 04-26-2013 End: 10-21-2016 PFM PFM [facility] Work Phone: Start: 04-26-2013 End: 05-02-2013 *Hepatic Function Panel *Hepatic Function Panel [facility] Work Phone: Start: 04-26-2013 End: 10-21-2016 Cardiac Rehab Cardiac Rehab [facility] Work Phone: Start: 04-26-2013 End: 04-26-2013 Cardiovascular stress test using treadmill Treadmill stress test (no imaging) [facility] Work Phone: Start: 04-26-2013 End: 04-26-2013 Electrocardiogram, complete EKG (In office) [facility] Work Phone: Start: 04-26-2013 End: 10-21-2016 Follow Up Appt 6 weeks Follow Up Appt 6 weeks [facility] Work Phone: Start: 04-26-2013 End: 05-02-2013 Lipid panel [AGGREGATE] *Lipid Profile CC PCP [facility] Work Phone: Start: 04-26-2013 End: 10-21-2016 PFM PFM [facility] Work Phone: Start: 2010 Pneumococcal Vaccine : 50+ (1 of 1 - PCV) Pneumococcal Vaccine: 50+ (1 of 1 - PCV) [facility] Start: 2005 Colonoscopy COLONOSCOPY [facility] Start: [address] COLONOGRAPHY [facility] Start: 2005 Screening for malign ant neoplasm of colon [facility] Start: [address] [facility] Start: 07-11-1979 Urine microalbumin profile [facility] Start: 1978 Anxiety Screening Anxiety Screening [facility] Start: 1978 BP CONTROLLED (<130/80) BP CONTROLLE D (<130/80) [facility] Start: 1978 Depression Screening Depression Scre ening [facility] Start: 1960 Screening for malign ant neoplasm of colon [facility] COLOGUARD COLOGUARD Lab Ro kalyn Screening for colon cancer Ordered: 09/26/2023 [facility] Comment on above: Ordered: 09/26/2023 End: 03-31-2023 LUNG DIFFUSION CAPACITY (DLCO) LUNG DIFFUSION CAPACITY (DLCO) PFT Routine Cough, unspecified type 1 Occurrences starting 03/01/2022 until 03/31/2023 [facility] Work Phone: Comment on above: 1 Occurrences starti ng 03/01/2022 until 03/31/2023 End: 03-31-2023 LUNG VOLUMES LUNG VOLUMES PFT Routine Cough, unspecified type 1 Occurrences starting 03/01/2022 until 03/31/2023 [facility] Work Phone: Comment on above: 1 Occurrences starti ng 03/01/2022 until 03/31/2023 Patient Education [facility] Work Phone: End: 03-31-2023 SPIROMETRY - BASELINE AND POST DILATOR SPIROMETRY - BASELINE AND POST DILATOR PFT Routine Cough, unspecified type 1 Occurrences starting 03/01/2022 until 03/31/2023 [facility] Work Phone: Comment on above: 1 Occurrences starti ng 03/01/2022 until 03/31/2023 [facility] Immunizations Immunization Date Immunization Notes Care Provider Sam[facility] 02-04-2023 Influenza, injectabl e, Madin Ni Canine Kidney, preservative free, quadrivalent Raymond Lu MD Work Phone: [facility] 02-04-2023 influenza virus vaccine, unspecified formulation Raymond Lu MD Work Phone: [facility] 03-01-2022 COVID-19 booster vaccine, age 12+ yr, bivalent ([employer]) Raymond Lu MD Work Phone: [facility] 03-01-2022 influenza, injectabl e, quadrivalent, contains preservative Raymond Lu MD Work Phone: [facility] 03-01-2022 influenza virus vaccine, unspecified formulation Raymond Lu MD Work Phone: [facility] 02-16-2021 COVID-19 vaccine, ag e 12+ yr ([facility]formerly [employer] - PURPLE TOP) Raymond Lu MD Work Phone: [facility] 07-04-2020 COVID-19 vaccine (LOWELL) Raymond Lu MD Work Phone: [facility] 06-22-2020 zoster vaccine recombinant Raymond Lu MD Work Phone: [facility] Work Phone: 01-24-2020 Influenza, injectabl e, Madin Hampton Canine Kidney, preservative free, quadrivalent Raymond Lu MD Work Phone: [facility] 01-24-2020 zoster vaccine recombinant Raymond Lu MD Work Phone: [facility] Work Phone: Payers Date Payer Category Payer Private Health Insurance AULTCAR [id number] 2024 Unknown [id number] 2024 Unknown [id number] 2024 Self-pay 2021 Unknown [employer]LAY [employer] PPO [id number] 2021-Present [phone] [address] [place] [address] [facility] [id number] 2021 Unknown [id number] 1960 Unknown [id number] 1960 Unknown [id number] 1959 Unknown [id number] Unknown [id number] Unknown [id number] Social History Date Type Detail Facility Start: 11-19-2010 End: 10-12-2022 Tobacco smoking status WYIS Never smoked tobacco [facility] Start: 02-11-2021 End: 06-01-2024 Alcohol intake Current non-drinker of alcohol (finding) [facility] Start: 1960 Sex Assigned At Not on file [facility] Start: 08-17-2021 End: 03-01-2022 Exposure to SARS-CoV-2 (event) Not sure [facility] Start: 11-19-2010 Tobacco use and exposure Smoke less tobacco non-user [facility] Work Phone: Start: 03-01-2022 History SDOH Alcohol Frequency 3 [facility] Start: 03-01-2022 History SDOH Alcohol Std Drinks 1 [facility] Start: 03-01-2022 History SDOH Social Connections Phone 98 [facility] Start: 03-01-2022 History SDOH Physica l Activity DPW 2 [facility] Start: 03-01-2022 History SDOH Financial 5 [facility] Start: 1960 Sex Assigned At Male C [facility] Start: 03-01-2022 End: 08-30-2022 History of Social function [facility] Start: 03-01-2022 End: 08-30-2022 Social connection and isolation panel [facility] In a typical week, h ow many times do you talk on the telephone with family, friends, or neighbors? Patient refused [facility] Are you now , , , , never or living with a partner? [facility] How often to you hav e a drink containing alcohol? 2-4 times a month [facility] How many standard dr inks containing alcohol do you have on a typical day? 1 or 2 [facility] How often do you hav e 6 or more drinks on 1 occasion? Never [facility] Do you feel stress - tense, restless, nervous, or anxious, or unable to sleep at night because your mind is troubled all the time - these days [OSQ] To some extent [facility] (I/We) worried isabel er (my/our) food would run out before (I/we) got money to buy more. Never true [facility] In the past 12 month s, was there a time when you were not able to pay the mortgage or rent on time? No [facility] Start: 03-01-2022 Gender identity Identifies as male gender (finding) [facility] Start: 10-12-2022 Tobacco use and exposure User of smokeless tobacco [facility] Start: 10-12-2022 End: 12-22-2023 Alcohol intake Current drinker of alcohol (finding) [facility] Start: 10-12-2022 Alcohol Comment Alcohol: 1 or 2 drinks on typical day/monthly or less. Caffeine: 1-2 cups/day [facility] How often to you hav e a drink containing alcohol? Monthly or less [facility] How hard is it for y ou to pay for the very basics like food, housing, medical care, and heating Not very hard [facility] Do you feel stress - tense, restless, nervous, or anxious, or unable to sleep at night because your mind is troubled all the time - these days [OSQ] Only a little [facility] Functional Status Date Assessment Result Facility 07-12-2014 Are you deaf, or do you have serious difficulty hearing No 07/12/2014 1:29 PM Marilia Moncada LPN No [facility] 07-12-2014 Are you blind, or do you have serious difficulty seeing, even when wearing glasses No 07/12/2014 1:29 PM Marilia Moncada LPN No [facility] 07-12-2014 Do you have serious difficulty walking or climbing stairs No 07/12/2014 1:29 PM EDT Marilia Jara LPN No [facility] 07-12-2014 Do you have difficul ty dressing or bathing No 07/12/2014 1:29 PM EDT Marilia Jara LPN No [facility] 07-12-2014 Because of a physica l, mental, or emotional condition, do you have difficulty doing errands alone such as visiting a physician's office or shopping No 07/12/2014 1:29 PM EDT Marilia Jara LPN No [facility] Mental Status Date Assessment Result Facility 07-12-2014 Because of a physica l, mental, or emotional condition, do you have serious difficulty concentrating, remembering, or making decisions No 07/12/2014 1:29 PM EDT Marilia Jara LPN No [facility] Clinical Notes 08-27-2021 to 12-18-2024 Telephone Encounter - Christine Patel LPN - 10/05/2024 10:05 AM EDTTelephone Encounter - Christine Patel LPN - 10/05/2024 10:05 AM EDTPatient InstructionsPatient Instructions Note Date & Type Note Facility 12-18-2024 Note HNO ID: [id number] Author: RAMILA YSOT PA-C Service: ? Author Type: Physician Creative Writing English Professor Type: Progress Notes Filed: 12/18/2024 14:25 Note Text: [facility] PATIENT CLINIC NOTE (M) Note was generated by [employer] and edited as appropriate SERVICE DATE: December 18, 2024 NAME: Tuan Vega GENDER: male CHIEF COMPLAINT: The patient is a 64-year-old male with coronary artery disease status post stent placement and obstructive sleep apnea, presenting for evaluation of an elevated PSA. HISTORY OF PRESENT ILLNESS: The patient is a 64-year-old male with coronary artery disease status post stent placement and obstructive sleep apnea, presenting for evaluation of an elevated PSA. Elevated PSA: - Recent PSA level of 2.64, up from 1.64 a year ago. - Denies known family history of prostate cancer. - Reports recent urinary urgency. - Noted darker, malodorous urine when dehydrated. Coronary Artery Disease: - History of a cardiac event 10-11 years ago, treated with a stent. - Currently taking metoprolol. Obstructive Sleep Apnea: - Diagnosed with severe ALEXANDRA, managed with BiPAP. - Reports significant reduction in nocturia since starting BiPAP, from 6-7 times per night to once per night. > We discussed the common causes of urinary frequency and urgency, and restricting water intake In hopes to mitigate the need to urinate, we discussed how this behavior more often worsen the problem not improving it, > We discussed increasing daily water intake to 64-84 oz 7a -7p and try to reduce bladder irritants, caffeine, alcohol and acid foods and drink. > Bladder irritants handout available to patient. LABS: PSA Screening (ng/mL) Date Value 12/14/2024 2.64 11/21/2023 1.58 06/12/2013 0.53 No results found for: TESTOST Hematocrit (%) Date Value 12/14/2024 45.3 11/21/2023 41.9 03/25/2022 43.0 07/30/2020 42.5 02/19/2015 41.1 PSA Screening (ng/mL) Date Value 12/14/2024 2.64 11/21/2023 1.58 06/12/2013 0.53 Creatinine Date Value Ref Range Status 12/14/2024 0.93 0.73 - 1.22 mg/dL Final 11/21/2023 0.97 0.73 - 1.22 mg/dL Final 03/25/2022 0.93 0.73 - 1.22 mg/dL Final MEDICATIONS: CPAP/BIPAP/OTHER Auto biPAP IPAP max 20, EPAP min 10, PS 4 cmH2O SHELBI Abbott aspirin, enteric coated (ASPIRIN, ENTERIC COATED) 81 mg EC tablet Take 81 mg by mouth once daily. sertraline (ZOLOFT) 100 mg tablet Take 1 tablet by mouth once daily. Currently working with provider on adjustments losartan (COZAAR) 100 mg tablet Take 1 tablet by mouth once daily. EPINEPHrine (EPIPEN) 0.3 mg/0.3 mL auto-injector Use as directed clopidogrel 75 mg tablet Take 75 mg by mouth once daily. atorvastatin 40 mg tablet Take 40 mg by mouth once daily. metoprolol tartrate, short acting, 25 mg tablet Take 50 mg by mouth two times a day. Dr Alonso adjusted PAST MEDICAL HISTORY: PAST MEDICAL HISTORY Diagnosis Date CAD (coronary artery disease) Dr. Duron HTN (hypertension) Hyperlipidemia Lung nodule unchanged in over 2 years ALEXANDRA (obstructive sleep apnea) Bipap ALEXANDRA treated with BiPAP RLS (restless legs syndrome) PAST SURGICAL HISTORY: PAST SURGICAL HISTORY Procedure Laterality Date STENT PLACEMENT Mar 2013 right coronary artery FAMILY HISTORY: FAMILY HISTORY Problem Relation Age of Onset Hypertension Mother Hypertension Father Obstructive Sleep Apnea Father No Known Problems Sister No Known Problems Brother No Known Problems Brother Hypertension Maternal Grandmother No Known Problems Maternal Grandfather No Known Problems Paternal Grandmother Glaucoma Paternal Grandfather SOCIAL HISTORY: Social Connections: Unknown (05/20/2023) Social Connection and Isolation Panel Frequency of Communication with Friends and Family: More than three times a week Frequency of Social Gatherings with Friends and Family: Three times a week Attends [employer] Services: Patient declined Active Member of Clubs or Organizations: Patient declined Attends Club or Organization Meetings: Patient declined Marital Status: REVIEW OF SYSTEMS: Genitourinary: (+) urinary urgency, (+) nocturia, (+) dark urine, (+) foul urine odor PHYSICAL EXAMINATION: There were no vitals taken for this visit. General: Alert AND oriented, well-hydrated, no acute distress Skin: Normal HEENT: Pupils equal, round. Oral cavity, oropharynx clear Neck: Supple, no mass Breast: Deferred Respiratory: Clear to auscultation, bilaterally Cardiovascular: Regular rate and rhythm, no murmurs, rubs, or gallops Abdomen: Soft, non-tender, non-distended, no masses palpable, no hepatosplenomegaly, normal bowel sounds Genitourinary: Deferred MSK: Back is non-tender Extremities: No clubbing, cyanosis, or edema PROBLEM LIST REVIEW: Yes LABS: Results for orders placed or performed in visit on 11/27 (more content not included)... [facility] 12-18-2024 Note HNO ID: [id number] Author: THALIA LU LPN Service: ? Author Type: Licensed Nurse Type: Progress Notes Filed: 12/18/2024 14:25 Note Text: Verified name and date of . CC Post Void Residual HPI: Tuan Vega is a 64 year old male. The patient is here now for an appointment with TATI Allen, EMA, PA-VIVIANA. Procedure: Explained procedure to patient and verbalizes understanding. Performed a PVR. Patient urinated and instructed to empty bladder as much as possible just prior to having PVR done using bladder ultrasound scanner. Results of scan: >14 mL The patient tolerated the procedure well. Plan: Appointment with Ramila. [facility] 12-17-2024 Note HNO ID: [id number] Author: STEFANIE MILLER APRN.KATINA Service: ? Author Type: Nurse Practitioner Type: Progress Notes Filed: 12/17/2024 10:15 Note Text: [facility] New Patient Evaluation PATIENT NAME: Tuan Vega DATE OF SERVICE: December 16, 2024 Recording using [employer] software for draft documentation of the visit was discussed with the patient/authorized customer retention representative; all questions welcomed and answered. Patient/authorized customer retention representative agreed to proceed CONSULTING PROVIDER: No referring provider defined for this encounter. REASON FOR VISIT: ALEXANDRA HPI: The patient is a 64-year-old male with a history of severe ALEXANDRA, presenting for an annual visit to obtain biPAP supplies. His Sleep physician retired. The patient has been using an auto biPAP machine with a full face mask nightly, averaging 9 hours and 18 minutes of use per night. He reports significant improvement in sleep quality, noting a reduction in nocturnal awakenings from 5-6 times per night to once per night since starting PAP therapy about 10 yrs ago. He denies any issues with the current PAP settings and is accustomed to the equipment, stating, I use it every day, I even take a nap with it. He inquires about the replacement schedule for PAP machines, noting that his current machine is not yet 5 years old. He hopes not to need another diagnostic study, had one in the last few years with prior [facility], found it extremely difficult to sleep w/o PAP. Previously had biPAP ST, now has auto biPAP. The patient has a history of RLS. Initially diagnosed with PLMs during a sleep study. No issue with nocturnal leg movements at home. He reports experiencing discomfort in his legs, particularly during long car rides and flights, which necessitates movement for relief. Compression socks and being able to recline and stretch out his legs on a flight have helped. He has been taking sertraline 100 mg at bedtime, prescribed for active mind, and expresses a desire to reduce the dosage. He also mentions previous use of gabapentin, which he discontinued due to grogginess, especially when taken with metoprolol. He has been consistently taking a magnesium supplement, Breakthrough Magnesium, daily, as recommended by a chiropractor for back pain. The patient denies excessive daytime sleepiness, sleep paralysis, sleep hallucinations, or acting out dreams. Patient Questionnaires Sleep Scores 05/20/2023 PROMIS [employer] - (T-Scores - the mean of general population = 50. Five points is a clinically meaningful difference.) Physical T-Score 44.9 Mental T-Score 53.3 PAST TREATMENTS: biPAP IPAP max 20, EPAP min 10, PS 4 cmH2O DME just switched from [facility] to [facility] Residual AHI 0.8 Uses 9.25 hrs every night Used 30 out of last 30 days See scanned copy of compliance report in chart PRIOR SLEEP STUDIES: 07/19/13 PSG: AHI 41.8 (1/3 of events were central per Dr Mccray's reread back in 2013) 07/31/13 PAP titration: switched to biPAP due to CPAP intolerance, start with biPAP ST 18/14 cmH2O with BUR 12 but might need increased PAST MEDICAL HISTORY Diagnosis Date CAD (coronary artery disease) Dr. Duron HTN (hypertension) Hyperlipidemia Lung nodule unchanged in over 2 years ALEXANDRA (obstructive sleep apnea) Bipap PAST SURGICAL HISTORY Procedure Laterality Date STENT PLACEMENT Mar 2013 right coronary artery ACTIVE PROBLEM LIST Cad (Coronary Artery Disease) Htn (Hypertension) Hyperlipidemia Alexandra Treated With Bipap Rls (Restless Legs Syndrome) Allergy to [place] Allergies As of Date: 12/17/2024 Allergen Noted Reaction LISINOPRIL 06/25/2013 Cough Fully Assessed 12/17/2024 CURRENT MEDICATIONS: aspirin, enteric coated (ASPIRIN, ENTERIC COATED) 81 mg EC tablet Take 81 mg by mouth once daily. sertraline (ZOLOFT) 100 mg tablet Take 1 tablet by mouth once daily. Currently working with provider on adjustments losartan (COZAAR) 100 mg tablet Take 1 tablet by mouth once daily. EPINEPHrine (EPIPEN) 0.3 mg/0.3 mL auto-injector Use as directed clopidogrel 75 mg tablet Take 75 mg by mouth once daily. atorvastatin 40 mg tablet Take 40 mg by mouth once daily. metoprolol tartrate, short acting, 25 mg tablet Take 50 mg by mouth two times a day. Dr Alonso adjusted CPAP/BIPAP/OTHER Auto biPAP IPAP max 20, EPAP min 10, PS 4 cmH2O SHELBI Abbott Review of Systems Constitutional: (-) insomnia, (-) excessive daytime sleepiness Neurological: (+) restless legs, (-) dream enactment behavior, (-) sleep paralysis, (-) sleep-related hallucinations Genitourinary: (+) nocturia SOCIAL HISTORY: SOCIAL HISTORY[1] FAMILY HISTORY: FAMILY HISTORY Problem Relation Age of Onset Hypertension Mother Hypertension Maternal Grandmother There is a family history of: Sleep apnea. Relative: father PHYSICAL EXAMINATION: Vital Signs: BP 127/75 (more content not included)... [facility] 12-14-2024 Note HNO ID: [id number] Author: RAYMOND LU MD Service: ? Author Type: Physician Type: Progress Notes Filed: 12/14/2024 12:58 Note Text: The patient is a 64-year-old male with heart disease, hyperlipidemia, obstructive sleep apnea, and restless legs syndrome, presenting for routine follow-up and laboratory evaluation. HPI Coronary Artery Disease: - No angina, dyspnea, dizziness, or lightheadedness. - Following with cardiology. - Luís is taking aspirin and Plavix. Hyperlipidemia: - No myalgias from atorvastatin. Obstructive Sleep Apnea: - Using BiPAP with good adherence and effective sleep. Restless Leg Syndrome: - Managed with sertraline; no side effects reported. - Previous provider retired; Luís is requesting refill. Colorectal Cancer Screening: - Last Cologuard test was 3 years ago. MEDICATIONS: Current Outpatient Medications Medication Sig aspirin, enteric coated (ASPIRIN, ENTERIC COATED) 81 mg EC tablet Take 81 mg by mouth once daily. losartan (COZAAR) 100 mg tablet Take 1 tablet by mouth once daily. EPINEPHrine (EPIPEN) 0.3 mg/0.3 mL auto-injector Use as directed COMPOUNDED PRESCRIPTION Initiate bilevel @ 18/14 cm of water with back up rate of 12 with humidification mask (per patient preference) optional chin strap (if indicated) and lifetime supplies DX: ALEXANDRA 327.23 clopidogrel 75 mg tablet Take 75 mg by mouth once daily. atorvastatin 40 mg tablet Take 40 mg by mouth once daily. metoprolol tartrate, short acting, 25 mg tablet Take 50 mg by mouth two times a day. Dr Alonso adjusted sertraline (ZOLOFT) 100 mg tablet Take 1 tablet by mouth once daily. Currently working with provider on adjustments No current facility-administered medications for this visit. ALLERGIES: ALLERGIES Allergen Reactions Lisinopril Cough LAUREN cough PAST MEDICAL HISTORY Diagnosis Date CAD (coronary artery disease) Dr. Duron HTN (hypertension) Hyperlipidemia Lung nodule unchanged in over 2 years ALEXANDRA (obstructive sleep apnea) Bipap PAST SURGICAL HISTORY Procedure Laterality Date STENT PLACEMENT Mar 2013 right coronary artery FAMILY HISTORY Problem Relation Age of Onset Hypertension Mother Hypertension Maternal Grandmother SOCIAL HISTORY[1] Reviewed current medications, allergies, past medical history, surgical history, family history and social history today. REVIEW OF SYSTEMS Constitutional: (-) sleep disturbance Cardiovascular: (-) chest pain Respiratory: (-) shortness of breath Neurological: (-) dizziness, (-) lightheadedness Musculoskeletal: (-) myalgia HEALTH MAINTENANCE: Reviewed health maintenance issues today and recommended the following in detail. Colorectal Cancer Screening due on 08/09/2023 LAB REVIEWED: - Lipid panel: Results were reported as normal. VITALS: BP 106/72 Pulse 76 Wt 109.3 kg (241 lb) SpO2 97% BMI 33.14 kg/m? Last 4 Encounter Wt Readings: Date: Wt: 12/14/2024 109.3 kg (241 lb) 06/01/2024 113.4 kg (250 lb) 09/26/2023 111.1 kg (245 lb) 03/22/2023 112.3 kg (247 lb 9.6 oz) PHYSICAL EXAMINATION: General: Alert, well-developed, no acute distress. Neck: No JVD. No carotid bruit. Lungs: Respirations unlabored, clear to auscultation, no wheezes, rales or rhonchi, symmetric air entry. Heart: Regular rate and regular rhythm, S1 and S2 normal, no murmur, no rub or gallop. Abdomen: Soft, non-tender. Extremities: No edema. Pulses: 2+ symmetric radial pulse. Skin: Warm and dry. ASSESSMENT AND PLAN 1. Primary hypertension (I10) 2. Hyperlipidemia, unspecified hyperlipidemia type (E78.5) 3. Coronary artery disease involving tolowa dee-ni' heart without angina pectoris, unspecified vessel or lesion type (I25.10) - Blood pressure well controlled; no chest pain, dyspnea, dizziness, or lightheadedness. - No side effects from atorvastatin; lipid panel completed within the last year. - Continue atorvastatin, aspirin, and Plavix as prescribed. - Ordered CBC and CMP. - Discussed eligibility for COVID vaccine due to underlying heart disease and high-risk status. - Continue cardiology follow-up. - Follow-up in 6 months for routine checkup. 4. Sleep apnea, unspecified type (G47.30) - BiPAP therapy effective; patient reports good sleep quality. 5. RLS (restless legs syndrome) (G25.81) - Symptoms well controlled; no issues reported. - Continue sertraline as prescribed; refill sent. 6. Screening for colon cancer (Z12.11) - Last Cologuard completed 3 years ago. - Ordered repeat Cologuard. (See patient after visit summary for additional instructions to patient) Raymond Lu MD Recording using [employer] software for draft documentation of the visit was discussed with the patient/authorized customer retention representative; all questions welcomed and answered. Patient/authorized customer retention representative agreed to proceed [1] Social History Tobacco Use Smoking status: Never Smokeless tobacco: Never Substance (more content not included)... [facility] 10-05-2024 Telephone encounter Note LM for patient to see what DME he uses for cpap Christine Patel LPN [facility] 10-05-2024 Miscellaneous Notes LM for patient to see what DME he uses for cpap Christine Patel LPN documented in this encounter [facility] 08-21-2024 Telephone encounter Note Patient informed. Sophie Hawkins MA [facility] 08-21-2024 Miscellaneous Notes Patient informed. Sophie Hawkins MA sent Patient calling and states Dr. Gardner, his neurologist, has retired. Patient has appointment with Dr. Mccray on 10/16/2024. Patient is needing refills on Sertraline. Patient asking if PCP can send in refills enough to get him to his appointment with Dr. Mccray? Patient reports that he takes 100 mg once a day. Please review and advise, Suzanne Mason RN documented in this encounter [facility] 08-21-2024 Telephone encounter Note sent [facility] 08-21-2024 Telephone encounter Note Patient calling and states Dr. Gardner, his neurologist, has retired. Patient has appointment with Dr. Mccray on 10/16/2024. Patient is needing refills on Sertraline. Patient asking if PCP can send in refills enough to get him to his appointment with Dr. Mccray? Patient reports that he takes 100 mg once a day. Please review and advise, Suzanne Mason RN [facility] 06-01-2024 Instructions Raymond Lu MD - 06/01/2024 3:[address] Mccray is our sleep Dr. documented in this encounter [facility] 06-01-2024 Note HNO ID: [id number] Author: RAYMOND LU MD Service: ? Author Type: Physician Type: Progress Notes Filed: 06/01/2024 15:59 Note Text: Patient presents with: 6 Month Exam HPI: Patient presents today for office visit for routine 6 month follow up. Continue to see cardiology and sleep med HYPERTENSION: does not check his bp at home. No issues with meds. PSYCH: emotions are doing ok. His father is sleeping well ALEXANDRA:will need to switch sleep med. Will have him notify me when due. She just saw her but Dr Gardner who he saw previously is leaving the state. Cpap is working well and sleeping well. HLD:no myalgias. CARDIO:no chest pain or shortness of breath. No edema. MEDICATIONS: Current Outpatient Medications Medication Sig losartan (COZAAR) 100 mg tablet Take 1 tablet by mouth once daily. sertraline (ZOLOFT) 100 mg tablet Take 100 mg by mouth once daily. Currently working with provider on adjustments EPINEPHrine (EPIPEN) 0.3 mg/0.3 mL auto-injector Use as directed COMPOUNDED PRESCRIPTION Initiate bilevel @ 18/14 cm of water with back up rate of 12 with humidification mask (per patient preference) optional chin strap (if indicated) and lifetime supplies DX: ALEXANDRA 327.23 clopidogrel 75 mg tablet Take 75 mg by mouth once daily. atorvastatin 40 mg tablet Take 40 mg by mouth once daily. metoprolol tartrate, short acting, 25 mg tablet Take 50 mg by mouth two times a day. Dr Alonso adjusted aspirin 325 mg tablet Take 81 mg by mouth once daily. Changed by cardiology No current facility-administered medications for this visit. ALLERGIES: ALLERGIES Allergen Reactions Lisinopril Cough LAUREN cough PAST MEDICAL HISTORY Diagnosis Date CAD (coronary artery disease) Dr. Duron HTN (hypertension) Hyperlipidemia Lung nodule unchanged in over 2 years ALEXANDRA (obstructive sleep apnea) Bipap PAST SURGICAL HISTORY Procedure Laterality Date STENT PLACEMENT Mar 2013 right coronary artery FAMILY HISTORY Problem Relation Age of Onset Hypertension Mother Hypertension Maternal Grandmother Social History Tobacco Use Smoking status: Never Smokeless tobacco: Never Substance Use Topics Alcohol use: No Drug use: No Reviewed current medications, allergies, past medical history, surgical history, family history and social history today. REVIEW OF SYSTEMS All other reviewed and negative other than HPI. HEALTH MAINTENANCE: Reviewed health maintenance issues today and recommended the following in detail. Depression Screening Never done Anxiety Screening Never done BP Controlled (<130/80) Never done DTaP,Tdap,Td Vaccine(1 - Tdap) Never done Pneumococcal Vaccine: 50+(1 of 1 - PCV) Never done LDL Cholesterol due on 03/25/2023 Colorectal Cancer Screening - has cologuard Influenza Vaccine(1) due on 11/27/2023 Covid-19 Vaccine(5 - season) due on 11/27/2023 VITALS: BP 126/70 Pulse 73 Ht 181.6 cm (5' 11.5) Wt 113.4 kg (250 lb) SpO2 95% BMI 34.38 kg/m? Last 4 Encounter Wt Readings: Date: Wt: 06/01/2024 113.4 kg (250 lb) 09/26/2023 111.1 kg (245 lb) 03/22/2023 112.3 kg (247 lb 9.6 oz) 03/23/2022 113.9 kg (251 lb) PHYSICAL EXAMINATION: General appearance: Well appearing, alert, in no acute distress, well-hydrated, well nourished. Skin: Skin color, texture, turgor normal, no suspicious rashes or lesions Head: Normocephalic, no masses, lesions, tenderness or abnormalities Lungs: Lungs clear to auscultation. No wheezing, rhonchi, rales Heart: RRR without murmur, gallop, or rubs. No ectopy Abdomen: Normal abdominal exam, Abdomen soft, non-tender. Bowel sounds normal. No masses, organomegaly Extremities: No deformities, edema, skin discoloration, clubbing or cyanosis. Good capillary refill. ASSESSMENT/PLAN: 1. Coronary artery disease involving tolowa dee-ni' heart without angina pectoris, unspecified vessel or lesion type - ICD9: 414.01, ICD10: I25.10 (primary diagnosis) - continue meds. Follow with cardiology. Labs in six months. - COMPLETE BLOOD COUNT AND DIFFERENTIAL - COMPREHENSIVE METABOLIC PANEL - LIPID PANEL BASIC 2. Primary hypertension - ICD9: 401.9, ICD10: I10 - Controlled - Continue current medications 3. Hyperlipidemia, unspecified hyperlipidemia type - ICD9: 272.4, ICD10: E78.5 - Controlled - Continue current medications 4. Sleep apnea, unspecified type - ICD9: 780.57, ICD10: G47.30 - continue cpap. 5. RLS (restless legs syndrome) - ICD9: 333.94, ICD10: G25.81 - stable. 6. Screening for prostate cancer - ICD9: V76.44, ICD10: Z12.5 - PSA/PROSTATE SPECIFIC ANTIGEN SCREENING 7. Screening for depression - ICD9: V79.0, ICD10: Z13. - DEPRESSION SCREENING 8. Encounter for screening examination for other mental health and behavioral disorders - ICD9: V79.8, ICD10: Z13.39 - ANXIETY SCREENING 9. Bilateral hearing loss, unspecified hearing loss type - ICD9: 389.9, ICD10: H91.93 - CONSULT TO ENT Kimberlyn (more content not included)... [facility] 06-01-2024 History of Present illness Narrative Patient presents with: 6 Month Exam HPI: Patient presents today for office visit for routine 6 month follow up. Continue to see cardiology and sleep med HYPERTENSION: does not check his bp at home. No issues with meds. PSYCH: emotions are doing ok. His father is sleeping well ALEXANDRA:will need to switch sleep med. Will have him notify me when due. She just saw her but Dr Gardner who he saw previously is leaving the state. Cpap is working well and sleeping well. HLD:no myalgias. CARDIO:no chest pain or shortness of breath. No edema. MEDICATIONS: Current Outpatient Medications Medication Sig losartan (COZAAR) 100 mg tablet Take 1 tablet by mouth once daily. sertraline (ZOLOFT) 100 mg tablet Take 100 mg by mouth once daily. Currently working with provider on adjustments EPINEPHrine (EPIPEN) 0.3 mg/0.3 mL auto-injector Use as directed COMPOUNDED PRESCRIPTION Initiate bilevel @ 18/14 cm of water with back up rate of 12 with humidification mask (per patient preference) optional chin strap (if indicated) and lifetime supplies DX: ALEXANDRA 327.23 clopidogrel 75 mg tablet Take 75 mg by mouth once daily. atorvastatin 40 mg tablet Take 40 mg by mouth once daily. metoprolol tartrate, short acting, 25 mg tablet Take 50 mg by mouth two times a day. Dr Alonso adjusted aspirin 325 mg tablet Take 81 mg by mouth once daily. Changed by cardiology No current facility-administered medications for this visit. ALLERGIES: ALLERGIES Allergen Reactions Lisinopril Cough LAUREN cough PAST MEDICAL HISTORY Diagnosis Date CAD (coronary artery disease) Dr. Duron HTN (hypertension) Hyperlipidemia Lung nodule unchanged in over 2 years ALEXANDRA (obstructive sleep apnea) Bipap PAST SURGICAL HISTORY Procedure Laterality Date STENT PLACEMENT Mar 2013 right coronary artery FAMILY HISTORY Problem Relation Age of Onset Hypertension Mother Hypertension Maternal Grandmother Social History Tobacco Use Smoking status: Never Smokeless tobacco: Never Substance Use Topics Alcohol use: No Drug use: No Reviewed current medications, allergies, past medical history, surgical history, family history and social history today. REVIEW OF SYSTEMS All other reviewed and negative other than HPI. HEALTH MAINTENANCE: Reviewed health maintenance issues today and recommended the following in detail. Depression Screening Never done Anxiety Screening Never done BP Controlled (<130/80) Never done DTaP,Tdap,Td Vaccine(1 - Tdap) Never done Pneumococcal Vaccine: 50+(1 of 1 - PCV) Never done LDL Cholesterol due on 03/25/2023 Colorectal Cancer Screening - has cologuard Influenza Vaccine(1) due on 11/27/2023 Covid-19 Vaccine( season) due on 11/27/2023 VITALS: BP 126/70 Pulse 73 Ht 181.6 cm (5' 11.5) Wt 113.4 kg (250 lb) SpO2 95% BMI 34.38 kg/m Last 4 Encounter Wt Readings: Date: Wt: 06/01/2024 113.4 kg (250 lb) 09/26/2023 111.1 kg (245 lb) 03/22/2023 112.3 kg (247 lb 9.6 oz) 03/23/2022 113.9 kg (251 lb) PHYSICAL EXAMINATION: General appearance: Well appearing, alert, in no acute distress, well-hydrated, well nourished. Skin: Skin color, texture, turgor normal, no suspicious rashes or lesions Head: Normocephalic, no masses, lesions, tenderness or abnormalities Lungs: Lungs clear to auscultation. No wheezing, rhonchi, rales Heart: RRR without murmur, gallop, or rubs. No ectopy Abdomen: Normal abdominal exam, Abdomen soft, non-tender. Bowel sounds normal. No masses, organomegaly Extremities: No deformities, edema, skin discoloration, clubbing or cyanosis. Good capillary refill. ASSESSMENT/PLAN: 1. Coronary artery disease involving tolowa dee-ni' heart without angina pectoris, unspecified vessel or lesion type - ICD9: 414.01, ICD10: I25.10 (primary diagnosis) - continue meds. Follow with cardiology. Labs in six months. - COMPLETE BLOOD COUNT AND DIFFERENTIAL - COMPREHENSIVE METABOLIC PANEL - LIPID PANEL BASIC 2. Primary hypertension - ICD9: 401.9, ICD10: I10 - Controlled - Continue current medications 3. Hyperlipidemia, unspecified hyperlipidemia type - ICD9: 272.4, ICD10: E78.5 - Controlled - Continue current medications 4. Sleep apnea, unspecified type - ICD9: 780.57, ICD10: G47.30 - continue cpap. 5. RLS (restless legs syndrome) - ICD9: 333.94, ICD10: G25.81 - stable. 6. Screening for prostate cancer - ICD9: V76.44, ICD10: Z12.5 - PSA/PROSTATE SPECIFIC ANTIGEN SCREENING 7. Screening for depression - ICD9: V79.0, ICD10: Z13. - DEPRESSION SCREENING 8. Encounter for screening examination for other mental health and behavioral disorders - ICD9: V79.8, ICD10: Z13.39 - ANXIETY SCREENING 9. Bilateral hearing loss, unspecified hearing loss type - ICD9: 389.9, ICD10: H91.93 - CONSULT TO ENT Raymond Lu MD documented in this encounter [facility] 12-22-2023 History of Present illness Narrative Images from the original note were not included. CHIEF COMPLAINT: Alexandra insomnia HISTORY OF PRESENT ILLNESS: 63 year old male presented to office to follow up on alexandra and insomnia. Wears pap nightly, sleeps well at night, denies eds, snoring through mask. Tolerates pap nightly. Zoloft remains effective at night, sleeps well at night, denies racing thoughts or feelings, able to go back to sleep if awakens for bathroom. All questions and concerns addressed. Current Outpatient Medications on File Prior to Visit Medication Sig Dispense Refill aspirin 81 MG EC tablet Take 81 mg by mouth Daily atorvastatin (Lipitor) 40 MG tablet Take 40 mg by mouth in the morning. clopidogrel (Plavix) 75 MG tablet Take 75 mg by mouth in the morning. losartan (Cozaar) 100 MG tablet Take 100 mg by mouth in the morning. metoprolol tartrate (Lopressor) 50 MG tablet Take 50 mg by mouth in the morning and 50 mg before bedtime. sertraline (Zoloft) 100 MG tablet Take 1 tablet (100 mg) by mouth Daily 30 tablet 0 Ambien 10 MG tablet 1 tablet at bedtime prior to sleep study at facility Orally as directed for 1 days No current facility-administered medications on file prior to visit. Past Medical History: Diagnosis Date Heart attack (CMS/HCC) High blood pressure (CMS/HCC) High cholesterol (CMS/HCC) ALEXANDRA (obstructive sleep apnea) Past Surgical History: Procedure Laterality Date IR STENT PLACEMENT stents Family History Problem Relation Name Age of Onset Hypertension Mother Pancreatic cancer Mother Stroke Father No Known Problems Daughter No Known Problems Son Social History Tobacco Use Smoking status: Never Smokeless tobacco: Current Substance Use Topics Alcohol use: Yes Comment: Alcohol: 1 or 2 drinks on typical day/monthly or less. Caffeine: 1-2 cups/day ALLERGIES: Lisinopril REVIEW OF SYSTEMS: General: Appetite change: denies. Chills: denies. Fever: denies. Allergy/Immunology: Unusual rection to medications, food, animals or insects reaction: denies. Ophthalmologic: Visual acuity change: denies. ENT: Decreased hearing: denies. Endocrine: Weight loss: denies. Respiratory: Cough: denies. Wheezing: denies. Cardiovascular: Chest pain: denies. Palpitations: denies. Gastrointestinal: Abdominal pain: denies. Difficulty swallowing: denies Hematology: Bleeding problems: denies. Genitourinary: Painful urination: denies. Musculoskeletal: Joint pain: denies. Joint edema: denies. Skin: Rash: denies. Neurologic: Ataxia: denies, Tremor: denies. Psychiatric Suicidal thoughts: denies. Also see HPI for elements of ROS documented therein and for details of positive findings, which shall supersede the foregoing. OBJECTIVE: Objective Vitals: 12/22/23 0945 BP: 142/90 Pulse: 64 SpO2: 97% Weight: 249 lb Height: 5' 11 Body mass index is 34.73 kg/m . Examination: General Exam: pleasant, well nourished, well developed, in no acute distress Head: normocephalic, atraumatic Eyes: extraocular movement intact (EOMI), pupils equal, round, reactive to light, upper eyelids normal , lower eyelids normal Ears: no obvious hearing deficit Nose: Nares patent Neck/Throat: neck supple, full range of motion Oral Cavity: mucosa moist Skin: warm and dry Heart: no murmurs, regular rate and rhythm, S1, S2 normal Lungs: clear to auscultation bilaterally, good air movement, no wheezes, rales, rhonci, speaks in full sentences Chest: normal shape and expansion Abdomen: bowel sounds present, soft, nontender, nondistended, no guarding or rigidity Extremities: no edema, no cyanosis Musculoskeletal: no swelling or deformity Neurologic: nonfocal, alert and oriented, cognitive exam grossly normal, cranial nerves 2-12 grossly intact, motor strength 5/5 bilateral symmetrically, no drift, coordination intact, sensory exam intact, gait normal Psych: pleasant, cooperative, good eye contact, speech clear, judgement and insight good ASSESSMENT/PLAN: 1. ALEXANDRA (obstructive sleep apnea) Autobipap 20/10 cmH2O with delta 4 Wear nightly Good compliance, ahi 0.6 2. Insomnia, unspecified type Improved, continue zoloft 100 mg at bedtime, wear pap nightly - sertraline (Zoloft) 100 MG tablet; Take 1 tablet (100 mg) by mouth Daily Dispense: 90 tablet; Refill: 3 Pt has been fully educated on their diagnosis, test results, treatment options, follow up plan, and return instructions. documented in this encounter [facility] 12-19-2023 Telephone encounter Note Patient calling he has appt in few weeks with Dr Navdeep Sharma, requesting recent lab results be faxed [phone]. Printed labs and faxed as requested. [facility] 12-19-2023 Miscellaneous Notes Patient calling he has appt in few weeks with Dr Navdeep Sharma, requesting recent lab results be faxed [phone]. Printed labs and faxed as requested. documented in this encounter [facility] 11-21-2023 Telephone encounter Note Labs are stable, other than sugar is up. Are we able to add an A1c? [facility] 11-21-2023 Miscellaneous Notes Labs are stable, other than sugar is up. Are we able to add an A1c? documented in this encounter [facility] 09-26-2023 Note Addended by: Valerie LU on: 09/26/2023 07:29 PM Modules accepted: Orders [facility] 09-26-2023 Miscellaneous Notes Addended by: RAYMOND LU on: 09/26/2023 07:29 PM Modules accepted: Orders documented in this encounter [facility] 09-26-2023 History of Present illness Narrative Patient presents with: 6 Month Exam HPI: [facility] Did not do his labs set of labs. HYPERTENSION:bp is well controlled. No chest pain or shortness of breath. No edema. No dizziness. PSYCH: still on sertraline. Meds are working well. Per his sleep med doc. HLD:no myalgias. CAD:follow with cardiology. ALEXANDRA:still using cpap . Feeling well. Benefiting from its use. Since covid noted mild balance issues and urinary frequency. Is minimal. Will start with psa and labs. If continues, let me know. Red flags for re-assessment reviewed with patient in detail. No other neuro issues. MEDICATIONS: Current Outpatient Medications Medication Sig losartan (COZAAR) 100 mg tablet Take 1 tablet by mouth once daily. sertraline (ZOLOFT) 100 mg tablet Take 100 mg by mouth once daily. Currently working with provider on adjustments EPINEPHrine (EPIPEN) 0.3 mg/0.3 mL auto-injector Use as directed COMPOUNDED PRESCRIPTION Initiate bilevel @ 18/14 cm of water with back up rate of 12 with humidification mask (per patient preference) optional chin strap (if indicated) and lifetime supplies DX: ALEXANDRA 327.23 clopidogrel 75 mg tablet Take 75 mg by mouth once daily. atorvastatin 40 mg tablet Take 40 mg by mouth once daily. metoprolol tartrate, short acting, 25 mg tablet Take 50 mg by mouth two times a day. Dr Alonso adjusted aspirin 325 mg tablet Take 81 mg by mouth once daily. Changed by cardiology No current facility-administered medications for this visit. ALLERGIES: ALLERGIES Allergen Reactions Lisinopril Cough LAUREN cough PAST MEDICAL HISTORY Diagnosis Date CAD (coronary artery disease) Dr. Duron HTN (hypertension) Hyperlipidemia Lung nodule unchanged in over 2 years ALEXANDRA (obstructive sleep apnea) Bipap PAST SURGICAL HISTORY Procedure Laterality Date STENT PLACEMENT Mar 2013 right coronary artery FAMILY HISTORY Problem Relation Age of Onset Hypertension Mother Hypertension Maternal Grandmother Social History Tobacco Use Smoking status: Never Smokeless tobacco: Never Substance Use Topics Alcohol use: No Drug use: No Reviewed current medications, allergies, past medical history, surgical history, family history and social history today. REVIEW OF SYSTEMS All other reviewed and negative other than HPI. HEALTH MAINTENANCE: Reviewed health maintenance issues today and recommended the following in detail. LDL Cholesterol due on 03/25/2023 Behavioral Health Screening Never done Colorectal Cancer Screening due on 08/09/2023 VITALS: BP 132/78 Pulse 77 Wt 111.1 kg (245 lb) SpO2 95% BMI 33.70 kg/m Last 4 Encounter Wt Readings: Date: Wt: 03/22/2023 112.3 kg (247 lb 9.6 oz) 03/23/2022 113.9 kg (251 lb) 03/01/2022 114.3 kg (252 lb) 08/27/2021 112.9 kg (249 lb) PHYSICAL EXAMINATION: General appearance: Well appearing, alert, in no acute distress, well-hydrated, well nourished. Skin: Skin color, texture, turgor normal, no suspicious rashes or lesions Head: Normocephalic, no masses, lesions, tenderness or abnormalities Lungs: Lungs clear to auscultation. No wheezing, rhonchi, rales Heart: RRR without murmur, gallop, or rubs. No ectopy Abdomen: Normal abdominal exam, Abdomen soft, non-tender. Bowel sounds normal. No masses, organomegaly Extremities: No deformities, edema, skin discoloration, clubbing or cyanosis. Good capillary refill. Musculoskeletal: No joint swelling, deformity, or tenderness ASSESSMENT/PLAN: 1. Coronary artery disease involving tolowa dee-ni' heart without angina pectoris, unspecified vessel or lesion type - ICD9: 414.01, ICD10: I25.10 (primary diagnosis) - continue continue meds. Get labs. See cardiology. 2. RLS (restless legs syndrome) - ICD9: 333.94, ICD10: G25.81 - stable. 3. Primary hypertension - ICD9: 401.9, ICD10: I10 - Controlled - Continue current medications - COMPLETE BLOOD COUNT AND DIFFERENTIAL - COMPREHENSIVE METABOLIC PANEL 4. Hyperlipidemia, unspecified hyperlipidemia type - ICD9: 272.4, ICD10: E78.5 - Controlled - Continue current medications 5. Sleep apnea, unspecified type - ICD9: 780.57, ICD10: G47.30 - per sleep meds. 6. Screening for colon cancer - ICD9: V76.51, ICD10: Z12.11 - COLOGUARD Raymond Lu MD RTO in six months or prn. documented in this encounter [facility] 05-20-2023 Instructions Raymond Lu MD - 05/20/2023 11:57 AM EST Fact sheet for Patients And Caregivers Emergency Use Authorization (EUA) Of LAGEVRIO (molnupiravir) capsules For Coronavirus Disease 2019 (COVID-19) What is the most important information I should know about LAGEVRIO? LAGEVRIO may cause serious side effects, including: LAGEVRIO may cause harm to your unborn baby. It is not known if LAGEVRIO will harm your baby if you take LAGEVRIO during . LAGEVRIO is not recommended for use in . LAGEVRIO has not been studied in . LAGEVRIO was studied in animals only. When LAGEVRIO was given to animals, LAGEVRIO caused harm to their unborn babies. You and your healthcare provider may decide that you should take LAGEVRIO during if there are no other COVID-19 treatment options approved or authorized by the FDA that are accessible or clinically appropriate for you. If you and your healthcare provider decide that you should take LAGEVRIO during , you and your healthcare provider should discuss the known and potential benefits and the potential risks of taking LAGEVRIO during . For individuals who are able to become : You should use a reliable method of control (contraception) consistently and correctly during treatment with LAGEVRIO and for 4 days after the last dose of LAGEVRIO. Talk to your healthcare provider about reliable control methods. Before starting treatment with LAGEVRIO your healthcare provider may do a test to see if you are before starting treatment with LAGEVRIO. Tell your healthcare provider right away if you become or think you may be during treatment with LAGEVRIO. Registry: There is a registry for individuals who take LAGEVRIO during . The purpose of this program is to collect information about the health of you and your baby. If you are or become during treatment with LAGEVRIO, you are encouraged to report your use of LAGEVRIO during to this registry at https://covid-pr.[employer] or . For individuals who are sexually active with partners who are able to become : It is not known if LAGEVRIO can affect sperm. While the risk is regarded as low, animal studies to fully assess the potential for LAGEVRIO to affect the babies of males treated with LAGEVRIO have not been completed. A reliable method of control (contraception) should be used consistently and correctly during treatment with LAGEVRIO and for at least 3 months after the last dose. The risk to sperm beyond 3 months is not known. Studies to understand the risk to sperm beyond 3 months are ongoing. Talk to your healthcare provider about reliable control methods. Talk to your healthcare provider if you have questions or concerns about how LAGEVRIO may affect sperm. You are being given this fact sheet because your healthcare provider believes it is necessary to provide you with LAGEVRIO for the treatment of adults with a current diagnosis of mild-tomoderate coronavirus disease 2019 (COVID-19) who are at high risk for progression to severe COVID-19, including hospitalization or , and for whom other COVID-19 treatment options approved or authorized by the FDA are not accessible or clinically appropriate. The [place]. Food and Drug Administration (FDA) has issued an Emergency Use Authorization (EUA) to make LAGEVRIO available during the COVID-19 pandemic (for more details about an EUA please see What is an Emergency Use Authorization? at the end of this document). LAGEVRIO is not an FDA-approved medicine in the [place]. Read this Fact Sheet for information about LAGEVRIO. Talk to your healthcare provider about your options if you have any questions. It is your choice to take LAGEVRIO. What is COVID-19? COVID-19 is caused by a virus called a coronavirus. You can get COVID-19 through close contact with another person who has the virus. COVID-19 illnesses have ranged from very mtyk-ey-jajhxd, including illness resulting in . While information so far suggests that most COVID-19 illness is mild, serious illness can happen and may cause some of your other medical conditions to become worse. Older people and people of all ages with severe, long lasting (chronic) medical conditions like heart disease, lung disease and diabetes, for example seem to be at higher risk of being hospitalized for COVID-19. What is LAGEVRIO? LAGEVRIO is an investigational medicine used to treat adults with a current diagnosis of mild to moderate COVID-19: who are at high risk for progression to severe COVID-19 including hospitalization or , and for whom other COVID-19 treatment options approved or authorized by the FDA are not accessible or clinically appropriate. The FDA has authorized the emergency use of LAGEVRIO for the treatment of mild-tomoderate COVID-19 in adults under an EUA. For more information on EUA, see the What is an Emergency Use Authorization (EUA)? section at the end of this Fact Sheet. LAGEVRIO is not authorized: for use in people less than 18 years of age. for prevention of COVID-19. for people needing hospitalization for COVID-19. for use for longer than 5 consecutive days. What should I tell my healthcare provider before I take LAGEVRIO? Tell your healthcare provider if you: have any allergies are or plan to breastfeed have any serious illnesses Take any medicines including prescription, ktsr-kje-xddxwcc medicines, vitamins, and herbal products. How do I take LAGEVRIO? Take LAGEVRIO exactly as your healthcare provider tells you to take it. Take 4 capsules of LAGEVRIO every 12 hours (for example, at 8 am and at 8 pm) Take LAGEVRIO for 5 days. It is important that you complete the full 5 days of treatment with LAGEVRIO. Do not stop taking LAGEVRIO before you complete the full 5 days of treatment, even if you feel better. Take LAGEVRIO with or without food. You should stay in isolation for as long as your healthcare provider tells you to. Talk to your healthcare provider if you are not sure about how to properly isolate while you have COVID-19. Swallow LAGEVRIO capsules whole. Do not open, break, or crush the capsules. If you cannot swallow capsules whole, tell your healthcare provider. If your healthcare provider prescribes LAGEVRIO and tells you to take or give a dose through a nasogastric (NG) or orogastric (OG) tube, follow the instructions below: How to take or give a dose of LAGEVRIO through a nasogastric (NG) or orogastric (OG) feeding tube. You must have an NG or OG that is size 12 German (FR) or larger. If you miss a dose of LAGEVRIO: If it has been less than 10 hours since the missed dose, take it as soon as you remember. If it has been more than 10 hours since the missed dose, skip the missed dose and take your dose at the next scheduled time. Do not double the dose of LAGEVRIO to make up for a missed dose. How to take or give a dose of LAGEVRIO through a nasogastric (NG) or orogastric (OG) feeding tube: Fact Sheet for Patients And Caregivers Emergency Use Authorization (EUA) Of LAGEVRIO (molnupiravir) capsules For Coronavirus Disease 2019 (COVID-19) What is the most important information I should know about LAGEVRIO? LAGEVRIO may cause serious side effects, including: LAGEVRIO may cause harm to your unborn baby. It is not known if LAGEVRIO will harm your baby if you take LAGEVRIO during . LAGEVRIO is not recommended for use in . LAGEVRIO has not been studied in . LAGEVRIO was studied in animals only. When LAGEVRIO was given to animals, LAGEVRIO caused harm to their unborn babies. You and your healthcare provider may decide that you should take LAGEVRIO during if there are no other COVID-19 treatment options approved or authorized by the FDA that are accessible or clinically appropriate for you. If you and your healthcare provider decide that you should take LAGEVRIO during , you and your healthcare provider should discuss the known and potential benefits and the potential risks of taking LAGEVRIO during . For individuals who are able to become : You should use a reliable method of control (contraception) consistently and correctly during treatment with LAGEVRIO and for 4 days after the last dose of LAGEVRIO. Talk to your healthcare provider about reliable control methods. Before starting treatment with LAGEVRIO your healthcare provider may do a test to see if you are before starting treatment with LAGEVRIO. Tell your healthcare provider right away if you become or think you may be during treatment with LAGEVRIO. Registry: There is a registry for individuals who take LAGEVRIO during . The purpose of this program is to collect information about the health of you and your baby. If you are or become during treatment with LAGEVRIO, you are encouraged to report your use of LAGEVRIO during to this registry at https://covid-pr.[employer] or . For individuals who are sexually active with partners who are able to become : It is not known if LAGEVRIO can affect sperm. While the risk is regarded as low, animal studies to fully assess the potential for LAGEVRIO to affect the babies of males treated with LAGEVRIO have not been completed. A reliable method of control (contraception) should be used consistently and correctly during treatment with LAGEVRIO and for at least 3 months after the last dose. The risk to sperm beyond 3 months is not known. Studies to understand the risk to sperm beyond 3 months are ongoing. Talk to your healthcare provider about reliable control methods. Talk to your healthcare provider if you have questions or concerns about how LAGEVRIO may affect sperm. You are being given this fact sheet because your healthcare provider believes it is necessary to provide you with LAGEVRIO for the treatment of adults with a current diagnosis of mild-tomoderate coronavirus disease 2019 (COVID-19) who are at high risk for progression to severe COVID-19, including hospitalization or , and for whom other COVID-19 treatment options approved or authorized by the FDA are not accessible or clinically appropriate. The [place]. Food and Drug Administration (FDA) has issued an Emergency Use Authorization (EUA) to make LAGEVRIO available during the COVID-19 pandemic (for more details about an EUA please see What is an Emergency Use Authorization? at the end of this document). LAGEVRIO is not an FDA-approved medicine in the [place]. Read this Fact Sheet for information about LAGEVRIO. Talk to your healthcare provider about your options if you have any questions. It is your choice to take LAGEVRIO. What is COVID-19? COVID-19 is caused by a virus called a coronavirus. You can get COVID-19 through close contact with another person who has the virus. COVID-19 illnesses have ranged from very hnqb-ys-rwhpic, including illness resulting in . While information so far suggests that most COVID-19 illness is mild, serious illness can happen and may cause some of your other medical conditions to become worse. Older people and people of all ages with severe, long lasting (chronic) medical conditions like heart disease, lung disease and diabetes, for example seem to be at higher risk of being hospitalized for COVID-19. What is LAGEVRIO? LAGEVRIO is an investigational medicine used to treat adults with a current diagnosis of mild to moderate COVID-19: who are at high risk for progression to severe COVID-19 including hospitalization or , and for whom other COVID-19 treatment options approved or authorized by the FDA are not accessible or clinically appropriate. The FDA has authorized the emergency use of LAGEVRIO for the treatment of mild-tomoderate COVID-19 in adults under an EUA. For more information on EUA, see the What is an Emergency Use Authorization (EUA)? section at the end of this Fact Sheet. LAGEVRIO is not authorized: for use in people less than 18 years of age. for prevention of COVID-19. for people needing hospitalization for COVID-19. for use for longer than 5 consecutive days. What should I tell my healthcare provider before I take LAGEVRIO? Tell your healthcare provider if you: have any allergies are or plan to breastfeed have any serious illnesses Take any medicines including prescription, ylfr-bvv-gitaqeh medicines, vitamins, and herbal products. How do I take LAGEVRIO? Take LAGEVRIO exactly as your healthcare provider tells you to take it. Take 4 capsules of LAGEVRIO every 12 hours (for example, at 8 am and at 8 pm) Take LAGEVRIO for 5 days. It is important that you complete the full 5 days of treatment with LAGEVRIO. Do not stop taking LAGEVRIO before you complete the full 5 days of treatment, even if you feel better. Take LAGEVRIO with or without food. You should stay in isolation for as long as your healthcare provider tells you to. Talk to your healthcare provider if you are not sure about how to properly isolate while you have COVID-19. Swallow LAGEVRIO capsules whole. Do not open, break, or crush the capsules. If you cannot swallow capsules whole, tell your healthcare provider. If your healthcare provider prescribes LAGEVRIO and tells you to take or give a dose through a nasogastric (NG) or orogastric (OG) tube, follow the instructions below: How to take or give a dose of LAGEVRIO through a nasogastric (NG) or orogastric (OG) feeding tube. You must have an NG or OG that is size 12 German (FR) or larger. If you miss a dose of LAGEVRIO: If it has been less than 10 hours since the missed dose, take it as soon as you remember. If it has been more than 10 hours since the missed dose, skip the missed dose and take your dose at the next scheduled time. Do not double the dose of LAGEVRIO to make up for a missed dose. How to take or give a dose of LAGEVRIO through a nasogastric (NG) or orogastric (OG) feeding tube: Wash your hands well with soap and water. Gather the supplies you will need to take or give the prescribed dose of LAGEVRIO. 4 LAGEVRIO capsules 1 liquid measuring cup with mL markings to measure 40 mL of room temperature water 1 clean container with a lid 1 catheter tip syringe. Your healthcare provider should tell you what size catheter tip syringe you will need to take or give a dose of LAGEVRIO. Place the needed supplies on a clean work surface. Follow your healthcare provider s instructions on how to flush the NG or OG feeding tube. Flush the NG or OG feeding tube with 5 mL of water before taking or giving a dose of LAGEVRIO. Carefully open 4 LAGEVRIO capsules, one at a time, and empty the contents into a clean container. Use the liquid measuring cup to measure 40 mL of room temperature water and add to the container containing the capsule contents. Place the lid on the container. Shake to mix the capsule contents and water well for 3 minutes. The capsule contents may not dissolve completely. Remove the lid from the container and draw up all the LAGEVRIO and water mixture into a catheter tip syringe. Give all of the mixture right away through the NG or OG feeding tube. Do not keep the mixture for future use. If any capsule contents are left in the container: Add 10 mL of water to the container, and mix to loosen any capsule contents that are left in the container. Use the catheter tip syringe to draw up all of the mixture in the container. Give the mixture through the NG or OG feeding tube. Repeat this process as needed until you no longer see any capsule contents left in the container or catheter tip syringe. Use the same catheter tip syringe to flush the NG or OG feeding tube 2 times with 5 mL of water (10mL total). Rinse the container, lid and catheter tip syringe well with clean water after use. Place on a clean paper towel until next use. What are the important possible side effects of LAGEVRIO? See, What is the most important information I should know about LAGEVRIO? Allergic Reactions. Allergic reactions can happen in people taking LAGEVRIO, even after only 1 dose. Stop taking LAGEVRIO and call your healthcare provider right away if you get any of the following symptoms of an allergic reaction: hives rapid heartbeat trouble swallowing or breathing swelling of the mouth, lips, or face throat tightness hoarseness skin rash The most common side effects of LAGEVRIO are: diarrhea nausea dizziness These are not all the possible side effects of LAGEVRIO. Not many people have taken LAGEVRIO. Serious and unexpected side effects may happen. This medicine is still being studied, so it is possible that all of the risks are not known at this time. What other treatment choices are there? Veklury (remdesivir) is FDA-approved as an intravenous (IV) infusion for the treatment of mildto-moderate COVID-19 in certain adults and children. Talk with your doctor to see if Veklury is appropriate for you. Like LAGEVRIO, FDA may also allow for the emergency use of other medicines to treat people with COVID-19. Go to https://www.fda.gov/emergency-pre wpesbswgb-nvn-whdlnesv/mcm-legalr cddfgbkvc-ssi-ybqwdv-framework/em eyieunm-nlb-twfvdqveyghaw for more information. It is your choice to be treated or not to be treated with LAGEVRIO. Should you decide not to take it, it will not change your standard medical care. What if I am ? is not recommended during treatment with LAGEVRIO and for 4 days after the last dose of LAGEVRIO. If you are or plan to breastfeed, talk to your healthcare provider about your options and specific situation before taking LAGEVRIO. How do I report side effects with LAGEVRIO? Contact your healthcare provider if you have any side effects that bother you or do not go away. Report side effects to FDA MedWatch at www.fda.gov/medwatch or call 2-456-CZQ-3655 (1120.103.7060). How should I store LAGEVRIO? Store LAGEVRIO capsules at room temperature between 68 F to 77 F (20 C to 25 C). Keep LAGEVRIO and all medicines out of the reach of children. How can I learn more about COVID-19? Ask your healthcare provider. Visit www.cdc.gov/COVID19 Contact your local or state public health department. Call [employer] at (toll free in the [place] Visit www.40billion.com What Is an Emergency Use Authorization (EUA)? The [place] FDA has made LAGEVRIO available under an emergency access mechanism called an Emergency Use Authorization (EUA) The EUA is supported by a [place] of Health and Human Service (HHS) declaration that circumstances exist to justify emergency use of drugs and biological products during the COVID-19 pandemic. LAGEVRIO for the treatment of adults with a current diagnosis of wasb-kv-qlbwvpkv COVID-19 who are at high risk for progression to severe COVID-19, including hospitalization or , and for whom alternative COVID-19 treatment options approved or authorized by FDA are not accessible or clinically appropriate, has not undergone the same type of review as an FDAapproved product. In issuing an EUA under the COVID-19 public health emergency, the FDA has determined, among other things, that based on the total amount of scientific evidence available including data from adequate and well-controlled clinical trials, if available, it is reasonable to believe that the product may be effective for diagnosing, treating, or preventing COVID-19, or a serious or life-threatening disease or condition caused by COVID-19; that the known and potential benefits of the product, when used to diagnose, treat, or prevent such disease or condition, outweigh the known and potential risks of such product; and that there are no adequate, approved, and available alternatives. All of these criteria must be met to allow for the product to be used in the treatment of patients during the COVID-19 pandemic. The EUA for LAGEVRIO is in effect for the duration of the COVID-19 declaration justifying emergency use of LAGEVRIO, unless terminated or revoked (after which LAGEVRIO may no longer be used under the EUA). Kendra. for: [employer] [address] For patent information: www.[employer]Pivot/research/patent Copyright [employer] [facility] and its affiliates. All rights reserved. [id number] Revised: April 2022 documented in this encounter [facility] 05-20-2023 History of Present illness Narrative Patient presents with: Follow Up HPI:This Team Access Model visit is a virtual encounter. It required patient-provider interaction for the medical decision making as documented below. Patient has elected to have a visit through distance medicine I have communicated my name and active licensure. The patient's identity and physical location were verified at the time of this visit. Either the patient or their legal customer retention representative has been informed of the risks and benefits of -- and alternatives to -- treatment through a remote evaluation and consents to proceed with the evaluation remotely. Tested positive for covid this am with home test. Symptoms started two days ago. Much worse yesterday. Headache and body aches and chills. Congestion. Coughing due to drainage. No shortness of breath. No issues with taste and smell. Has some pain pain in left lower flank. No urinary issues. No hematuria. Had went to a golf tournament in [facility] and slept on his side. No chest pain. No gi issues. No sore throat. Some chills last night. No sure if fever. MEDICATIONS: Current Outpatient Medications Medication Sig losartan (COZAAR) 100 mg tablet Take 1 tablet by mouth once daily. sertraline (ZOLOFT) 100 mg tablet Take 100 mg by mouth once daily. Currently working with provider on adjustments EPINEPHrine (EPIPEN) 0.3 mg/0.3 mL auto-injector Use as directed COMPOUNDED PRESCRIPTION Initiate bilevel @ 18/14 cm of water with back up rate of 12 with humidification mask (per patient preference) optional chin strap (if indicated) and lifetime supplies DX: ALEAXNDRA 327.23 clopidogrel 75 mg tablet Take 75 mg by mouth once daily. atorvastatin 40 mg tablet Take 40 mg by mouth once daily. metoprolol tartrate, short acting, 25 mg tablet Take 50 mg by mouth two times a day. Dr Alonso adjusted aspirin 325 mg tablet Take 81 mg by mouth once daily. Changed by cardiology No current facility-administered medications for this visit. ALLERGIES: ALLERGIES Allergen Reactions Lisinopril Cough LAUREN cough PAST MEDICAL HISTORY Diagnosis Date CAD (coronary artery disease) Dr. Duron HTN (hypertension) Hyperlipidemia Lung nodule unchanged in over 2 years ALEXANDRA (obstructive sleep apnea) Bipap PAST SURGICAL HISTORY Procedure Laterality Date STENT PLACEMENT Mar 2013 right coronary artery FAMILY HISTORY Problem Relation Age of Onset Hypertension Mother Hypertension Maternal Grandmother Social History Tobacco Use Smoking status: Never Smokeless tobacco: Never Substance Use Topics Alcohol use: No Drug use: No Reviewed current medications, allergies, past medical history, surgical history, family history and social history today. REVIEW OF SYSTEMS All other reviewed and negative other than HPI. VITALS: There were no vitals taken for this visit. Last 4 Encounter Wt Readings: Date: Wt: 03/22/2023 112.3 kg (247 lb 9.6 oz) 03/23/2022 113.9 kg (251 lb) 03/01/2022 114.3 kg (252 lb) 08/27/2021 112.9 kg (249 lb) PHYSICAL EXAMINATION: Patient is alert and oriented during visit. Answers appropriately. Breathing is good. ASSESSMENT/PLAN: 1. COVID-19 - ICD9: 079.89, ICD10: U07.1 - Discussed risks and benefits of new medication with the patient. Advised them to call if any side effects or questions. Red flags for re-assessment reviewed with patient in detail. Call if symptoms worsen at all or if not better in one to two weeks Reviewed diagnosis and treatment options in detail. Questions were answered. Patient expressed understanding of treatment plan. Discussed risks and benefits of new medication with the patient. Advised them to call if any side effects or questions. Red flags for re-assessment reviewed with patient in detail. Call if symptoms worsen at all or if not better in one to two weeks Reviewed diagnosis and treatment options in detail. Questions were answered. Patient expressed understanding of treatment plan. - MOLNUPIRAVIR 200 MG CAPSULE (EUA) Raymond Lu MD Nirmatrelvir/Ritonavir (Paxlovid) Considerations Paxlovid is FDA-approved for treatment of mild to moderate COVID-19 in adults who are at high risk for progression to severe COVID-19. Consider use of Paxlovid in the following examples of high risk patients (list is not all inclusive): Age over 65 years Cardiovascular and cerebrovascular disease Chronic disease state (kidney, liver, lung) Diabetes (type 1 or type 2) Immunocompromised state (cancer, solid organ or blood stem cell transplant, HIV) Obesity Paxlovid warnings include serious drug interactions (co-administration with drugs highly dependent on CYP3A for clearance), hypersensitivity reactions, hepatotoxicity, and risk of HIV-1 resistance development. Raymond Lu MD May 20, 2023 11:57 AM Molnupiravir Eligibility and Patient Discussion [facility] Formulary Restriction Criteria: Adult outpatients 18 years and older with ALL of the following: [x] Patient has symptoms for 5 days or less [x] Not requiring hospitalization at any time for management of COVID-19 [x] Not requiring supplemental oxygen or a change in baseline supplemental oxygen [x] Not utilized for pre-exposure or post-exposure prophylaxis for prevention of COVID-19 [x] Patient is not or lactating [x] Meeting at least one of the criteria for high risk of progression to severe COVID-19: [] Age over 65 years [] Cancer [] Chronic kidney disease [] Chronic liver disease [] Chronic lung diseases, including cystic fibrosis [] Dementia or other neurological conditions [] Diabetes (type 1 or type 2) [] Disabilities, including Down syndrome and neurodevelopmental disorders [x] Heart conditions [] HIV infection [] Immunocompromised state [] Mental health conditions [] Medical related technological dependence (tracheostomy, gastrostomy, or positive pressure ventilation (not related to COVID) [] Overweight and obesity (BMI greater or equal to 25 for adults) [] Physical inactivity [] Sickle cell disease or thalassemia [] Smoking, current or former [] Solid organ or blood stem cell transplant [] Stroke or cerebrovascular disease [] Substance use disorders [] Tuberculosis [] People from racial and ethnic minority groups Criteria above are met: Yes Date of Symptom Onset: 05/18 Patient received COVID vaccine: Yes / status reviewed: Females: [] Patient is not currently and there is no possibility the patient could be (select one of the following): [] test does not need to be confirmed in patients who have undergone permanent sterilization, are currently using an intrauterine system or contraceptive implant, or in whom is not possible. [] Patients not meeting conditions above: assess whether the patient is based on the first day of the last menstrual period in individuals who have regular menstrual cycles, is using reliable method of contraception correctly and consistently or have had a negative test [] A test is recommended if the individual has irregular menstrual cycles, is unsure of the first day of the last menstrual period or is not using effective contraception correctly and consistently [] Patient is not currently . is not recommended during treatment and for four days after final dose of molnupiravir. [] Females have been advised to use a reliable method of contraception correctly and consistently for the duration of treatment and for four days after the last dose of molnupiravir Males: [x] Sexually active male with partner(s) of childbearing potential has been advised to use a reliable method of contraception correctly and consistently for intercourse for the duration of treatment and for three months after the last dose of molnupiravir I have discussed the use of the investigational therapeutic, molnupiravir, for the treatment of mild to moderate COVID-19 and its use under Emergency Use Authorization with the patient. The patient was informed that molnupiravir is not an FDA approved drug and that it is authorized for use under this Emergency Use Authorization. The patient was also informed of the significant known benefits and potential risks of molnupiravir, and the extent to which such potential risks and benefits are unknown. The patient was informed that there is mandatory reporting of all medication errors and serious adverse events potentially related to molnupiravir treatment within 7 calendar days from the onset of the event and that events up to 28 days after completion of therapy need to be reported. The discussion included alternatives to receiving molnupiravir, including clinical trials, and potential the risks and benefits of those alternatives. The patient was provided electronically with the Fact Sheet for Patients, Parents and Caregivers. The patient was also instructed that in addition to the treatment with molnupiravir, he/she should continue to self-isolate and use infection control measures (e.g., wear mask, isolate, social distance, avoid sharing personal items, clean and disinfect high touch surfaces, and frequent handwashing) according to CDC guidelines. The patient stated understanding and gave verbal consent to proceeding with molnupiravir treatment. Raymond Lu MD May 20, 2023 12:07 PM documented in this encounter [facility] 05-10-2023 Telephone encounter Note Pt called for refill of Sertraline, he said he picked up last script on 04/08/23 for qty 30 w/no refills But a script for 90 tablets w/1 refill was sent to [facility] on 04/11/23 He is calling [facility] for refill now [facility] 05-10-2023 Miscellaneous Notes Pt called for refill of Sertraline, he said he picked up last script on 04/08/23 for qty 30 w/no refills But a script for 90 tablets w/1 refill was sent to [facility] on 04/11/23 He is calling [facility] for refill now documented in this encounter [facility] 12-10-2022 Miscellaneous Notes No future visit scheduled No showed 08/30/22 Never filled metoprolol. Gets it filled at [facility] Needs appt with Dr Lu as well. Detailed message left for pt. Kate Santamaria Ma Patient has been identified by name and date of : Yes Last office visit in this department: 03/01/2022 RX INSTRUCTIONS: Patient aware RX will be sent to pharmacy. No need to notify patient. Patient phones requesting refills as follows: Requested Prescriptions Pending Prescriptions Disp Refills metoprolol tartrate, short acting, (LOPRESSOR) 25 mg tablet Sig: Take 1 tablet by mouth twice daily. Please sent to [facility] [address] in [place] Please review and advise. Carolina Longoria documented in this encounter [facility] 03-23-2022 History of Present illness Narrative PULM FUNCTION SMARTBLOCK: Provider: Raymond Lu MD Assisting Tech: BAILEY Mckeon Spirometry w/BD: 1 DLCO: 1 LV - Box: 1 documented in this encounter [facility] 03-01-2022 History of Present illness Narrative Patient presents with: 6 Month Exam HPI: Patient presents today for office visit for follow up. HTN: Compliant with meds No chest pain No shortness of breath No headaches No dizziness No edema ALEXANDRA/RLS: Seeing Dr. Gardner with [facility]. Has not seen in quite awhile. On BiPAP. Using Gabapentin at a lower dose. Working well. Started on Sertraline 100 mg at night. Sleeping ok. Would like to discuss seeing Dr. Mccray here at [place]. Cardiology: Sees Dr. Duron. HLD: Due for labs MEDICATIONS: Current Outpatient Medications Medication Sig sertraline (ZOLOFT) 100 mg tablet Take 100 mg by mouth. losartan (COZAAR) 100 mg tablet Take 1 tablet by mouth once daily. EPINEPHrine (EPIPEN) 0.3 mg/0.3 mL auto-injector Use as directed gabapentin (NEURONTIN) 300 mg capsule Take 300 mg by mouth daily at bedtime. 100-300 each night per [facility] COMPOUNDED PRESCRIPTION Initiate bilevel @ 18/14 cm of water with back up rate of 12 with humidification mask (per patient preference) optional chin strap (if indicated) and lifetime supplies DX: ALEXANDRA 327.23 clopidogrel 75 mg tablet Take 75 mg by mouth once daily. atorvastatin 40 mg tablet Take 40 mg by mouth once daily. metoprolol tartrate, short acting, 25 mg tablet Take 25 mg by mouth twice daily. aspirin 325 mg tablet Take 325 mg by mouth once daily. No current facility-administered medications for this visit. ALLERGIES: ALLERGIES Allergen Reactions Lisinopril Cough LAUREN cough PAST MEDICAL HISTORY Diagnosis Date CAD (coronary artery disease) Dr. Duron HTN (hypertension) Hyperlipidemia Lung nodule unchanged in over 2 years ALEXANDRA (obstructive sleep apnea) Bipap PAST SURGICAL HISTORY Procedure Laterality Date STENT PLACEMENT Mar 2013 right coronary artery FAMILY HISTORY Problem Relation Age of Onset Hypertension Mother Hypertension Maternal Grandmother Social History Tobacco Use Smoking status: Never Smokeless tobacco: Never Substance Use Topics Alcohol use: No Drug use: No Reviewed current medications, allergies, past medical history, surgical history, family history and social history today. REVIEW OF SYSTEMS Uses jesus otc for cough. Helps but is persistent. No heartburn. GI: Negative for change in bowel habit : Negative All other reviewed and negative other than HPI. HEALTH MAINTENANCE: Reviewed health maintenance issues today and recommended the following in detail. BP CONTROLLED (<130/80) Never done DTAP,TDAP,TD(1 - Tdap) Never done DEPRESSION ASSESSMENT Never done COVID-19 VACCINE(3 - Booster for [place] series) due on 04/13/2021 LDL CHOLESTEROL due on 07/30/2021 INFLUENZA(1) due on 11/26/2021 Had discussion with patient regarding risks and benefits of prostate screening. Allowed them to decide if they wished to proceed with screening including JOSÉ MANUEL and PSA. VITALS: BP 138/86 Pulse 75 Ht 181.6 cm (5' 11.5) Wt 114.3 kg (252 lb) SpO2 97% BMI 34.66 kg/m Last 4 Encounter Wt Readings: Date: Wt: 08/27/2021 112.9 kg (249 lb) 02/11/2021 111.6 kg (246 lb) 11/27/2020 111.9 kg (246 lb 9.6 oz) 08/04/2020 112.9 kg (249 lb) PHYSICAL EXAMINATION: General appearance: Well appearing, alert, in no acute distress, well-hydrated, well nourished. Skin: Skin color, texture, turgor normal, no suspicious rashes or lesions Head: Normocephalic, no masses, lesions, tenderness or abnormalities Neck: Supple, no adenopathy; thyroid symmetric, normal size, no bruits Lungs: Lungs clear to auscultation. No wheezing, rhonchi, rales Heart: RRR without murmur, gallop, or rubs. No ectopy Abdomen: Normal abdominal exam, Abdomen soft, non-tender. Bowel sounds normal. No masses, organomegaly Extremities: No deformities, edema, skin discoloration, clubbing or cyanosis. Good capillary refill. ASSESSMENT/PLAN: 1. Primary hypertension - ICD9: 401.9, ICD10: I10 (primary diagnosis) - good control - Continue current medication(s) - Goal of BP <130/80 - CBC + DIFF - COMP METABOLIC PANEL - LIPID PANEL BASIC 2. Encounter for immunization - ICD9: V03.89, ICD10: Z23 - vufind-bookletmobile COVID-19 BIVALENT BOOSTER VACCINE, AGE 12+ YR 3. Coronary artery disease involving tolowa dee-ni' heart without angina pectoris, unspecified vessel or lesion type - ICD9: 414.01, ICD10: I25.10 - follow with cardiology 4. Hyperlipidemia, unspecified hyperlipidemia type - ICD9: 272.4, ICD10: E78.5 - to be determined upon return of lab results - Continue current medication. - CBC + DIFF - COMP METABOLIC PANEL - LIPID PANEL BASIC 5. Sleep apnea, unspecified type - ICD9: 780.57, ICD10: G47.30 - stable. 6. RLS (restless legs syndrome) - ICD9: 333.94, ICD10: G25.81 - per sleep med 7. Need for influenza vaccination - ICD9: V04.81, ICD10: Z23 - INFLUENZA VACCINE QUADRIVALENT 6 MO - 64 YRS IM 8. Cough. Check pfts and xray. Consider pulmonary. Raymond Lu MD documented in this encounter [facility] 08-27-2021 History of Present illness Narrative Patient presents with: Back Pain: on and off flaring up recently Hypertension HPI: Patient presents today for office visit for follow up. Overall is doing well. Working remotely now. Not as active. His back is bothering him on and off. Saw his chiropractor. Seems to be improving. HTN: Patient is compliant with meds Yes Denies side effects: Yes. Chest pain: No. Dyspnea: No. Edema: No. Palpitations: No. CARDIO:does see Dr. Duron. HLD:due for labs. ALEXANDRA/RLS: on bipap. RLS is working well. Has been able to take lower doses of gabapentin. Sees Dr. Gardner. Is benefiting. MEDICATIONS: Current Outpatient Medications Medication Sig losartan (COZAAR) 100 mg tablet Take 1 tablet by mouth once daily. gabapentin (NEURONTIN) 300 mg capsule Take 300 mg by mouth daily at bedtime. 100-300 each night per [facility] clopidogrel 75 mg tablet Take 75 mg by mouth once daily. atorvastatin 40 mg tablet Take 40 mg by mouth once daily. metoprolol tartrate, short acting, 25 mg tablet Take 25 mg by mouth twice daily. aspirin 325 mg tablet Take 325 mg by mouth once daily. EPINEPHrine (EPIPEN) 0.3 mg/0.3 mL auto-injector Use as directed COMPOUNDED PRESCRIPTION Initiate bilevel @ 18/14 cm of water with back up rate of 12 with humidification mask (per patient preference) optional chin strap (if indicated) and lifetime supplies DX: ALEXANDRA 327.23 No current facility-administered medications for this visit. ALLERGIES: ALLERGIES Allergen Reactions Lisinopril Cough LAUREN cough PAST MEDICAL HISTORY Diagnosis Date CAD (coronary artery disease) Dr. Duron HTN (hypertension) Hyperlipidemia Lung nodule unchanged in over 2 years ALEXANDRA (obstructive sleep apnea) Bipap PAST SURGICAL HISTORY Procedure Laterality Date STENT PLACEMENT Mar 2013 right coronary artery FAMILY HISTORY Problem Relation Age of Onset Hypertension Mother Hypertension Maternal Grandmother Social History Tobacco Use Smoking status: Never Smoker Smokeless tobacco: Never Used Substance Use Topics Alcohol use: No Drug use: No Reviewed current medications, allergies, past medical history, surgical history, family history and social history today. REVIEW OF SYSTEMS GI: Negative for change in bowel habit : Negative All other reviewed and negative other than HPI. HEALTH MAINTENANCE: Reviewed health maintenance issues today DEPRESSION SCREENING -done. Negative Had discussion with patient regarding risks and benefits of prostate screening. Allowed them to decide if they wished to proceed with screening including JOSÉ MANUEL and PSA. VITALS: BP 142/82 Pulse 72 Wt 112.9 kg (249 lb) BMI 34.24 kg/m Last 4 Encounter Wt Readings: Date: Wt: 02/11/2021 111.6 kg (246 lb) 11/27/2020 111.9 kg (246 lb 9.6 oz) 08/04/2020 112.9 kg (249 lb) 12/27/2018 105.2 kg (232 lb) PHYSICAL EXAMINATION: General appearance: Well appearing, alert, in no acute distress, well-hydrated, well nourished. Skin: Skin color, texture, turgor normal, no suspicious rashes or lesions Head: Normocephalic, no masses, lesions, tenderness or abnormalities Lungs: Lungs clear to auscultation. No wheezing, rhonchi, rales Heart: RRR without murmur, gallop, or rubs. No ectopy Abdomen: Normal abdominal exam, Abdomen soft, non-tender. Bowel sounds normal. No masses, organomegaly Extremities: No deformities, edema, skin discoloration, clubbing or cyanosis. Good capillary refill. Musculoskeletal: No joint swelling, deformity, or tenderness Peripheral pulses: Normal Neuro: Negative. ASSESSMENT/PLAN: 1. Primary hypertension - ICD9: 401.9, ICD10: I10 (primary diagnosis) - suboptimal control - Continue current medication(s) - Encouraged dietary sodium restriction/DASH diet - Discussed need and benefit for weight loss. - Follow up in 1 month for BP recheck. - Goal of BP <130/80 - LOSARTAN 100 MG TABLET 2. RLS (restless legs syndrome) - ICD9: 333.94, ICD10: G25.81 - continue meds. 3. Coronary artery disease involving tolowa dee-ni' heart without angina pectoris, unspecified vessel or lesion type - ICD9: 414.01, ICD10: I25.10 - call if any issues. 4. Hyperlipidemia, unspecified hyperlipidemia type - ICD9: 272.4, ICD10: E78.5 - to be determined upon return of lab results - Continue current medication. - CBC + DIFF - COMP METABOLIC PANEL - LIPID PANEL BASIC 5. Sleep apnea, unspecified type - ICD9: 780.57, ICD10: G47.30 - continue bipap Raymond Lu RTO in six months and prn. documented in this encounter [facility] Evaluation note Diagnosis Primary hypertension- Primary Unspecified essential hypertension RLS (restless legs syndrome) Restless legs syndrome (RLS) Coronary artery disease involving tolowa dee-ni' heart without angina pectoris, unspecified vessel or lesion type Hyperlipidemia, unspecified hyperlipidemia type Sleep apnea, unspecified type [facility] Diagnosis Primary hypertension- Primary Unspecified essential hypertension Encounter for immunization Need for other specified prophylactic vaccination against single bacterial disease Coronary artery disease involving tolowa dee-ni' heart without angina pectoris, unspecified vessel or lesion type Hyperlipidemia, unspecified hyperlipidemia type Sleep apnea, unspecified type RLS (restless legs syndrome) Restless legs syndrome (RLS) Need for influenza vaccination Need for prophylactic vaccination and inoculation against influenza Cough, unspecified type [facility] Diagnosis Cough, unspecified type [facility] Diagnosis Cough, unspecified type [facility] Diagnosis COVID-19- Primary [facility] Diagnosis Coronary artery disease involving tolowa dee-ni' heart without angina pectoris, unspecified vessel or lesion type- Primary RLS (restless legs syndrome) Restless legs syndrome (RLS) Primary hypertension Unspecified essential hypertension Hyperlipidemia, unspecified hyperlipidemia type Sleep apnea, unspecified type Screening for colon cancer Special screening for malignant neoplasms, colon Screening for prostate cancer Special screening for malignant neoplasm of prostate [facility] Diagnosis Hyperglycemia- Primary Other abnormal glucose [facility] Diagnosis ALEXANDRA (obstructive sleep apnea)- Primary Obstructive sleep apnea (adult) (pediatric) Insomnia, unspecified type [facility] Diagnosis Coronary artery disease involving tolowa dee-ni' heart without angina pectoris, unspecified vessel or lesion type- Primary Primary hypertension Unspecified essential hypertension Hyperlipidemia, unspecified hyperlipidemia type Sleep apnea, unspecified type RLS (restless legs syndrome) Restless legs syndrome (RLS) Screening for prostate cancer Special screening for malignant neoplasm of prostate Screening for depression Encounter for screening examination for other mental health and behavioral disorders Bilateral hearing loss, unspecified hearing loss type documented [facility] this [facility] Outpatient Procedure (Routine) - Pending Review Specialty Diagnoses / Procedures Referred By Orlin christy Referred To [facility] Diagnoses Cough, unspecified type Procedures LUNG VOLUMES Raymond Lu MD [address] [place] [address] [address] Referral ID Status Reason Start Date Expiration Date Visits Requested Visits Authorized [id number] Pending Review Auto-Generat ed Referral 03/01/2022 03/31/2023 1 1 * Outpatient Procedure (Routine) - Authorized Specialty Diagnoses / Procedures Referred By Orlin christy Referred To [facility] Diagnoses Cough, unspecified type Procedures LUNG DIFFUSION CAPACITY (DLCO) [place] [address] [place] [address] [address] Referral ID Status Reason Start Date Expiration Date Visits Requested Visits Authorized [id number] Authorized Auto-Generat ed Referral 03/01/2022 03/31/2023 1 1 * Outpatient Procedure (Routine) - Authorized Specialty Diagnoses / Procedures Referred By Orlin christy Referred To [facility] Diagnoses Cough, unspecified type Procedures SPIROMETRY - BASELINE AND POST DILATOR BRNCDILAT RSPSE SPMTRY PRE&[place] [address] [place] [address] [address] Referral ID Status Reason Start Date Expiration Date Visits Requested Visits Authorized [id number] Authorized Auto-Generat ed Referral 03/01/2022 03/31/2023 1 1 [facility] Advance Directives No Advanced Directives Records FoundDocuments on File 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 Advance Directive(s) Summary Purpose Family History No Family History Records FoundNo Family History Records FoundNo Family History Records FoundNo Family History Records FoundNo Family History Records Found Additional Source Comments Source Comments (unrecognize d section and content) In the event this informatio n is protected by the Federal Confidentiality of Alcohol and Drug Abuse Patient Records regulations: The Federal rules restrict any use of the information to criminally investigate or prosecute any alcohol or drug abuse patient.[facility] the event this information is protected by the Federal Confidentiality of Alcohol and Drug Abuse Patient Records regulations: The Federal rules restrict any use of the information to criminally investigate or prosecute any alcohol or drug abuse patient.[facility] the event this information is protected by the Federal Confidentiality of Alcohol and Drug Abuse Patient Records regulations: The Federal rules restrict any use of the information to criminally investigate or prosecute any alcohol or drug abuse patient.[facility] the event this information is protected by the Federal Confidentiality of Alcohol and Drug Abuse Patient Records regulations: The Federal rules restrict any use of the information to criminally investigate or prosecute any alcohol or drug abuse patient.[facility] the event this information is protected by the Federal Confidentiality of Alcohol and Drug Abuse Patient Records regulations: The Federal rules restrict any use of the information to criminally investigate or prosecute any alcohol or drug abuse patient.[facility] the event this information is protected by the Federal Confidentiality of Alcohol and Drug Abuse Patient Records regulations: The Federal rules restrict any use of the information to criminally investigate or prosecute any alcohol or drug abuse patient.[facility] the event this information is protected by the Federal Confidentiality of Alcohol and Drug Abuse Patient Records regulations: The Federal rules restrict any use of the information to criminally investigate or prosecute any alcohol or drug abuse patient.[facility] the event this information is protected by the Federal Confidentiality of Alcohol and Drug Abuse Patient Records regulations: The Federal rules restrict any use of the information to criminally investigate or prosecute any alcohol or drug abuse patient.[facility] the event this information is protected by the Federal Confidentiality of Alcohol and Drug Abuse Patient Records regulations: The Federal rules restrict any use of the information to criminally investigate or prosecute any alcohol or drug abuse patient.[facility] the event this information is protected by the Federal Confidentiality of Alcohol and Drug Abuse Patient Records regulations: The Federal rules restrict any use of the information to criminally investigate or prosecute any alcohol or drug abuse patient.[facility] the event this information is protected by the Federal Confidentiality of Alcohol and Drug Abuse Patient Records regulations: The Federal rules restrict any use of the information to criminally investigate or prosecute any alcohol or drug abuse patient.[facility] the event this information is protected by the Federal Confidentiality of Alcohol and Drug Abuse Patient Records regulations: The Federal rules restrict any use of the information to criminally investigate or prosecute any alcohol or drug abuse patient.[facility] the event this information is protected by the Federal Confidentiality of Alcohol and Drug Abuse Patient Records regulations: The Federal rules restrict any use of the information to criminally investigate or prosecute any alcohol or drug abuse patient.[facility] the event this information is protected by the Federal Confidentiality of Alcohol and Drug Abuse Patient Records regulations: The Federal rules restrict any use of the information to criminally investigate or prosecute any alcohol or drug abuse patient.[facility] Center[facility] the event this information is protected by the Federal Confidentiality of Alcohol and Drug Abuse Patient Records regulations: The Federal rules restrict any use of the information to criminally investigate or prosecute any alcohol or drug abuse patient.[facility] Reason for Visit (unrecogniz ed section and content) Reason Comments Back Pain on and off flaring u p recently Hypertension Reason Onset Date Comments 6 Month Exam Immunizations 03/01/2022 Flu vaccination Reason Comments Spirometry Specialty Diagnoses / Procedures Referred By Contac t Referred To Contact [facility] Diagnoses Cough, unspecified type Procedures SPIROMETRY - BASELINE AND POST DILATOR BRNCDILAT RSPSE SPMTRY PRE&POST-BRNCDILAT ADMN Raymond Lu MD [address] [place] [address] [facility] [place] [address] [place] [employer], [place] [id number] Referral ID Status Reason Start Date Expiration Date V isits Requested Visits Authorized [id number] Closed Auto-Generate d Referral 03/01/2022 03/31/2023 1 1 Specialty Diagnoses / Procedures Referred By Contac t Referred To Contact [facility] Diagnoses Cough, unspecified type Procedures LUNG VOLUMES Raymond Lu MD [address] [place] [address] [facility] [place] [address] [place] [employer], [place] [id number] Referral ID Status Reason Start Date Expiration Date V isits Requested Visits Authorized [id number] Closed Auto-Generate d Referral 03/01/2022 03/31/2023 1 1 Specialty Diagnoses / Procedures Referred By Contac t Referred To Contact [facility] Diagnoses Cough, unspecified type Procedures LUNG DIFFUSION CAPACITY (DLCO) DIFFUSING CAPACITY Raymond Lu MD [address] [place] [address] [facility] [place] [address] [place] [employer], [place] [id number] Referral ID Status Reason Start Date Expiration Date V isits Requested Visits Authorized [id number] Closed Auto-Generate d Referral 03/01/2022 03/31/2023 1 1 Reason Onset Date Comments Refill Request 12/10/2022 Reason Comments Follow Up Specialty Diagnoses / Procedures Referred By Contac t Referred To Contact [facility] Diagnoses Physical Procedures physical Raymond Lu MD [address] [place] [address] [facility] [address] [place] [address] Referral ID Status Reason Start Date Expiration Date Visits Requested Visits Authorized [id number] Pending Review OON/Self Pay Override 3 08/21/2023 1 1 Reason Comments 6 Month Exam Specialty Diagnoses / Procedures Referred By Orlin christy Referred To Contact [facility] Diagnoses Follow-up exam Procedures OFFICE CONSULTATION NEW/ESTAB PATIENT 15 MIN Raymond Lu MD [address] [place] [address] [place] [address] [address] [place] [address] Referral ID Status Reason Start Date Expiration Date Visits Requested Visits Authorized [id number] Pending Review OON/Self Pay Override 09/25/2023 01/02/2025 1 1 Reason Comments Results Reason Comments fax copy of labs to [facility] Reason Comments Sleep Apnea Reason Comments 6 Month Exam Reason Onset Date Comments Medication Request 08/21/2024 Reason Comments cpap compliance Care Teams (unrecognized sec tion and content) Chemical Packager Relationship Specialty Start Date End Date Raymond Lu MD [address] [place], [place] [id number] PCP - General Family Practice 06/25/13 Steven Duron [address] [place] [phone] Cardiology 01/22/16 Chemical Packager Relationship Specialty Start Date End Date Raymond Lu MD [address] [place], [place] [id number] PCP - General Family Medicine 06/25/13 Steven Duron [address] [phone] Cardiology 01/22/16 Chemical Packager Relationship Specialty Start Date End Date Raymond Lu MD [address] [place], [place] [id number] PCP - General Family Medicine 06/25/13 Steven Duron [address] [place] [address] Cardiology 01/22/16 Chemical Packager Relationship Specialty Start Date End Date Raymond Lu MD [address] [place] [address] PCP - General Family Medicine 06/25/13 Steven Duron [address] [place] [address] Cardiology 01/22/16 Chemical Packager Relationship Specialty Start Date End Date Raymond Lu MD [address] [facility] [address] PCP - General Family Medicine 06/25/13 [address] Duron [address] [place] [address], [place] [phone] Cardiology 01/22/16 Chemical Packager Relationship Specialty Start Date End Date Raymond Lu MD [address] [facility] [address] PCP - General Family Medicine 06/25/13 Steven Duron MD [address] [place] [address], [place] [address] Cardiology 01/22/16 Chemical Packager Relationship Specialty Start Date End Date Raymond Lu MD [address] [facility] [address] PCP - General Family Medicine 06/25/13 Steven Duron MD [address] [place] [address] Cardiology 01/22/16 Chemical Packager Relationship Specialty Start Date End Date Raymond Lu MD [address] [place] [address] PCP - General Family Medicine 06/25/13 Steven Duron MD [address] [place] [address] Cardiology 01/22/16 Chemical Packager Relationship Specialty Start Date End Date Raymond Lu MD [address] [place] [address] PCP - General Family Medicine 06/25/13 Steven Duron MD [address] [address] Cardiology 01/22/16 Chemical Packager Relationship Specialty Start Date End Date Raymond Lu MD [address] [place] [address] PCP - General Family Medicine 06/25/13 Steven Duron MD [address] [address] Cardiology 01/22/16 Chemical Packager Relationship Specialty Start Date End Date Raymond Lu MD [address] [place] [address] PCP - General Family Medicine 06/25/13 Steven Duron MD [address] [place] [address] Cardiology 01/22/16 Leah Haddad APRN.STONECUTTER ASSISTANT [address] [place] [address] [facility] 03/05/24 Ayesha Boggs APRN.STONECUTTER ASSISTANT [address] [place] [address] [facility] 03/05/24 Chemical Packager Relationship Specialty Start Date End Date Raymond Lu MD [address] [facility] [place] [address] PCP - General Family Medicine 06/25/13 Steven Duron MD [address] [place] [address] Cardiology 01/22/16 Leah Haddad LIGHT RAIL VEHICLE OPERATOR.STONECUTTER ASSISTANT [address] [facility] [place] [address] [facility] 03/05/24 Ayesha Boggs APRN.STONECUTTER ASSISTANT [address] [place] [address] [facility] 03/05/24 Chemical Packager Relationship Specialty Start Date End Date Raymond Lu MD [address] [facility] [place] [address] PCP - General Family Medicine 06/25/13 Steven Duron MD [address] [place] [address] Cardiology 01/22/16 Leah Haddad LIGHT RAIL VEHICLE OPERATOR.STONECUTTER ASSISTANT [address] [place] [address] [employer] [facility] 03/05/24 Ayesha Boggs APRN.STONECUTTER ASSISTANT [address] [place], [place] [address] [facility] 03/05/24 Chemical Packager Relationship Specialty Start Date End Date Raymond Lu MD [address] [place] [address] PCP - General Family Medicine 06/25/13 Steven Duron MD [address] [phone] Cardiology 01/22/16 Leah Haddda APRN.STONECUTTER ASSISTANT [address] [place] [address] [facility] 03/05/24 Ayesha Boggs LIGHT RAIL VEHICLE OPERATOR.STONECUTTER ASSISTANT [address] [place], [place] [address] [facility] 03/05/24 (unrecognized sect ion and content) No Status Records FoundNo Status Records FoundNo Status Records FoundNo Status Records FoundNo Status Records Found INFORMATION SOURCE (unrecogn ized section and content) DATE CREATED AUTHOR 11/12/2022 [facility] DATE CREATED AUTHOR AUTHOR'S ORGANIZ ATION 04/11/2023 [facility] DATE CREATED AUTHOR AUTHOR'S ORGANIZ ATION 10/17/2024 [facility] DATE CREATED AUTHOR AUTHOR'S ORGANIZ ATION 10/21/2024 [facility] DATE CREATED AUTHOR AUTHOR'S ORGANIZ ATION 12/28/2024 [facility] FOR RECORDS PERTAINING TO PATIENTS WHO ARE OR HAVE BEEN ENROLLED IN A CHEMICAL DEPENDENCY/SUBSTANCEABUSE PROGRAM, SOME INFORMATION MAY BE OMITTED. This clinical summary was aggregated from multiple sources. Caution should be exercised in using it in the provision of clinical care. This summary normalizes information from multiple sources, and as a consequence, information in this document may materially change the coding, format and clinical context of patient data. In addition, data may be omitted in some cases. CLINICAL DECISIONS SHOULD BE BASED ON THE PRIMARY CLINICAL RECORDS. [facility] [facility]. provides no warranty or guarantee of the accuracy or completeness of information in this document.
--- NOTE | 2025-03-05 12:01 | STRESSREP_ITS ---
Stress Test Report Date: 03/04/2025 Procedure: Exercise tolerance test/imaging study Indications: Coronary artery disease Consent: Per the patient Procedure: The patient exercised on a Rajan protocol for 9 minutes achieving a peak heart rate of 144 bpm (92% predicted maximal heart rate) with a peak blood pressure 178/72 mmHg and a peak MET capacity of 10.4 METs. The baseline ECG demonstrated sinus rhythm. The peak exercise ECG did not show any ischemic changes. Rare PVCs noted. The functional capacity was considered excellent for age. There was no complaint of chest discomfort during exercise or recovery. The examination was discontinued secondary to target heart rate being achieved. The patient was injected with 14.6 mCi of technetium 99m Cardiolite and subsequently rest SPECT Cardiolite nuclear imaging was obtained in the horizontal long, vertical long, and short axis views. Post-exercise, the patient was injected with 44.3 mCi of technetium 99m Cardiolite and subsequently stress SPECT Cardiolite nuclear imaging was obtained in the horizontal long, vertical long, and short axis views. A gated Cardiolite study at peak stress was obtained. Rest and stress SPECT Cardiolite nuclear imaging status post realignment, normalization, and attenuation correction, demonstrates large fixed inferior lateral perfusion defect compatible with previous infarct. There is mild cathryn- infarct ischemia on gated images, inferior hypokinesis is noted. The reported LVEF is 56%. Impression: 1. Technically adequate (percent predicted maximal heart rate greater than 85%) exercise tolerance test 2. Peak exercise ECG with no ischemic changes 3. Excellent functional capacity for age. 4. 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 5. The gated Cardiolite study reports an LVEF of 56%. This note was generated with [employer]led[employer] software. It may contain incorrect words, spelling, and punctuation that were not noted in checking the note before signing.
== END | disposition home or self-care (01) ==
LOC: CVS 06:07
PROVIDERS: PCP Family Medicine; Referring Provider Nurse Practitioner Family; Visit Provider Nurse Practitioner Family
DX: I25.10 Atherosclerotic heart disease of native coronary artery without angina pectoris (principal); I25.5 Ischemic cardiomyopathy; E78.00 Pure hypercholesterolemia, unspecified; I10 Essential (primary) hypertension; Z95.5 Presence of coronary angioplasty implant and graft
CPT/HCPCS: 78452; 93017; A9500; A4216

== ENCOUNTER → 2025-03-20 | Outpatient (CLI) | payer OTHER, SELFPAY ==
--- OUTSIDE RECORDS SUMMARY | 2025-03-20 07:20 | XMS RPT_ITS | CCD ---
Author Organization [facility] Care Team Providers Care Shactor Helper Name Role Phone LATHA Cary, Ellen Viera Unavailable [phone] Dayna Ng Unavailable Unavailable Dayna Ng Unavailable Unavailable Severino Quiroga Unavailable Unavailable Severino Quiroga Unavailable Unavailable Raymond Lu MD Primary Care Provider [phone] Steven Duron Unavailable Raymond Lu MD Primary Care Provider Steven Duron Unavailable AA NO PCP, NO PCP Primary Care Unavailable HELSOUTH DO~[phone], EUGENIO Munoz Atten ding Unavailable HELSOUTH DO~[phone], EUGENIO Munoz Admit nena Unavailable LORAINE MCNEILL Attending Unavailable Unavailable Primary Care Provider Unavailsimone e Steven Duron MD Unavailable Raymond Lu MD Primary Care Provider Haagen PACKAGE LINE RELIEF OPERATOR.Leah AMBRIZ Unavailable Suppan PACKAGE LINE RELIEF OPERATOR.KATINA, Ayesha A Unavailable [phone] Suppan PACKAGE LINE RELIEF OPERATOR.KATINA Ayesha A Unavailable Raymond Lu Referring [...] Enzyme (Lauren) Inhibitors drug allergy 4 cough [facility] Work Phone: (4 sources) NKDA drug allergy 4 [facility] Work Phone: (17 sources) Lisinopril; Translations: [LISINOPRIL] Drug Allergy 4 Cough [facility] (4 sources) Lisinopril Propensity to adverse reactions 4 [facility] (1 source) Angiotensin Converting Enzyme (Lauren) Inhibitors Drug allergy (disorder) [address] [facility] Repository Medications Current Medications Medication Drug Class(es) [...] indicated) and lifetime supplies DX: ALEXANDRA 327.23 [id number] 0.3 ml EPINEPHrine 1 mg/ml auto-injector (15 [...] tablet by mouth twice daily LOSARTAN POTASSIUM [id number] Steven Duron MD Start: 05-08-2013 take 1 tablet by greg th once daily COZAAR 25 MG TABS One tablet by mouth daily LOSARTAN POTASSIUM [id number] Steven Duron MD Comment on above: Take [...] 250-250-65 MG TABS As needed ASPIRIN-ACETAMINO PHEN-CAFFEINE [id number] Steven Duron MD Start: 04-26-2013 EXCEDRIN EXTRA STRENGTH 250-250-65 MG TABS As needed LPEFUPM-NHWSRCTJTUOTL-BOOMJEOY [id number] Steven Duron MD Start: 04-26-2013 End: 04-12-2014 EXCEDRIN EXTRA STRENGTH 250- 250-65 MG TABS As needed CNYGGTH-PCADNNOWEIELC-PJKFEEOT [id number] Steven Duron MD aspirin 325 mg oral tablet (20 sources) Nonsteroidal Anti-inflammatory Drug Start: 04-26-2013 take 1 tablet by mouth once daily ASPIRIN 325 MG TABS One tablet by mouth daily ASPIRIN [id number] Steven Duron MD aspirin 325 mg t [...] EXTRA STRENGTH 250-250-65 MG TABS As needed RTKZSDN-VESUXQURWCNOJ-AQ FFEINE [id number] Steven Duron MD Start: 04-26-2013 EXCEDRIN EXTRA STRENGTH 250-250-65 MG TABS As needed ONISODV-QNSWRGFEHMZVW-BEQJORFC [id number] Steven Duron MD atorvastatin 40 mg oral tablet (20 sources) HMG-CoA Reductase Inhibitor Start: 04-18-2013 take 1 tablet by mouth once daily ATORVASTATIN CALCIUM 40 MG TABS One tablet by mouth daily ATORVASTATIN CALCIUM [id number] Steven Duron MD Comment on above: Take 40 mg by mouth once daily. clopidogrel 75 mg oral tablet (20 sources) P2Y12 Platelet Inhibitor Start: 04-18-2013 take 1 tablet by mouth once daily PLAVIX 75 MG TABS One tablet by mouth daily CLOPIDOGREL BISULFATE 41323163211 Mil Wheat Shellie MCCAULEY Comment on above: Take 75 mg by mouth once daily. enalapril maleate 5 mg oral tablet (10 sources) Angiotensin Converting Enzyme Inhibitor Start: 04-18-2013 End: 05-08-2013 take 1 tablet by mouth twice daily VASOTEC 5 MG TABS One tablet by mouth twice daily ENALAPRIL MALEATE 54133586683 Alyssa Chun RN gabapentin 300 mg oral capsule (11 sources) Anti-epileptic Agent Start: 04-12-2014 GABAPENTIN 300 MG CAPS 1-3 tablets by mouth @ night GABAPENTIN [id number] Steven Duron MD Comment on above: Take 300 mg by mouth daily at bedtime. 100-300 each night per [facility] ibuprofen 200 mg oral capsule (10 sources) Nonsteroidal Anti-inflammatory Drug Start: 04-26-2013 End: 04-12-2014 ADVIL 200 MG CAPS as needed takes 2-4 daily IBUPROFEN [id number] Steven Duron MD Start: 04-26-2013 End: 04-12-2014 ADVIL 200 MG CAPS as needed takes 2-4 daily IBUPROFEN [id number] Steven Duron MD metoprolol tartrate 25 mg oral tablet (20 sources) beta-Adrenergic Jacquelyn Start: 04-26-2013 take 1 tablet by mouth twice daily METOPROLOL TARTRATE 25 MG TABS One tablet by mouth twice daily METOPROLOL TARTRATE 34526945771 Steven Duron MD metoprolol tartr ate, short [...] 5 min up to 3 X NITROGLYCERIN [id number] Steven Duron MD Problems Active Problems Problem Classification Problem Date Documented Da te Episodic/Chronic Coronary atherosclerosis and other heart disease (20 sources) Generalized ischemic myocardial dysfunction; Translations: [Atherosclerotic heart disease of [place] coronary artery without angina pectoris] Onset: 12-28-2013 [...] (current) use of other medications; Translations: [Other longterm (current) drug therapy] Onset: 05-03-2013 Resolved: 01-13-2015 [...] CNOV Office Visit (UROLWS ) SILVIATUAN Rodrigues ([id number]) 1960 M Date Time Provider Department 12/18/24 [...] Ramila Maya PA-C 12/18/2024 2:25 PM Signed [facility] NEW PATIENT CLINIC NOTE (M) Note was generated by [employer] and edited as appropriate SERVICE DATE: [...] 20, EPAP min 10, PS 4 cmH2O [facility] [place] [place] Scar aspirin, enteric coated (ASPIRIN, ENTERIC COATED) [...] and Family: Three times a week Attends Anglican Services: Patient declined Active Member of Clubs or Organizations: Patient declined Attends Club or Organization Meetings: Patient declined Marital Status: REVIEW OF SYSTEMS: Ge (more content not included)... Normal [facility] CNOVon 12-17-2024 CNOV Office Visit (SLEWST ) TUAN VEGA ([id number]) 1960 M Date Time Provider Department 12/17/24 9:00 AM STEFANIE MILLER During your visit today, we recorded the following information about you: Pulse Respiration Blood pressure Weight 79/minute 16/minute 127/75 109.3 kg Stefanie Miller APRN.INSIDE STEWARD/STEWARDESS 12/17/2024 10:15 AM Addendum [facility] New Patient Evaluation PATIENT NAME: Tuan Vega DATE OF SERVICE: December 16, 2024 Recording using ambient AI software for draft documentation of the visit was discussed with the patient/authorized corporate representative; all questions welcomed and answered. Patient/authorized corporate representative agreed to proceed CONSULTING PROVIDER: No [...] in the last few years with prior [facility] [place] [facility], found it extremely difficult [...] PS 4 cmH2O DME just switched from [facility] to [facility]id[facility] AHI [...] nocturia SOCIAL (more content not included)... Normal [facility] 12-17-2024 [facility] Telephone (SLEWST) TUAN VEGA ([id number]) 1960 M Date Time Provider Department 12/17/24 STEFANIE MILLER During your visit today, we recorded the following information about you: Sarah Martinez LPN 12/17/2024 9:44 AM Signed Called [facility] and requested Sleep Study results completed by them. Will be faxing results to us. MAYRA Cortes Barbara, LPN 12/17/2024 10:03 AM Signed Received [facility] sleep study results. Scanned into Pt chart. Sarah Martinez LPN Allergies As of Date: 12/17/2024 Noted Allergy Reaction LISINOPRIL 06/25/2013 3 - Cough Comments: LAUREN cough Date Reviewed: 12/17/2024 Reviewed by: Sarah Martinez LPN - Fully Assessed Reason for Visit: Results [95] Cmt: [facility] Sleep Study Prescriptions as of 12/17/2024 [...] Encounter Status:Closed by SARAH MARTINEZ on 12/17/24 [facility] Telephone (SLEWST) TUAN VEGA ([id number]) 1960 Date Time Provider Department 12/17/24 STEFANIE MILLER During your visit today, we recorded the following information about you: Sarah Martinez LPN 12/17/2024 1:19 PM Signed Faxed mask/supply order to [facility]. Sarah Martinez LPN Allergies As of Date: 12/17/2024 Noted Allergy Reaction LISINOPRIL 06/25/2013 3 - Cough Comments: LAUREN cough Date Reviewed: 12/17/2024 Reviewed by: Sarah Martinez LPN - Fully Assessed Prescriptions as of 12/17/2024 - CPAP/BIPAP/OTHER Auto biPAP IPAP max 20, EPAP min 10, PS 4 cmH2O [facility] - aspirin, enteric coated (ASPIRIN, ENTERIC [...] Encounter Status:Closed by SARAH MARTINEZ on 12/17/24 [facility] 12-15-2024 [facility] TUAN VEGA ([id number]) 1960 M Date Time Provider Department 12/15/24 RAYMOND LU [facility] During your visit today, we recorded the [...] [R97.20] Order(s):CONSULT TO UROLOGY [9041] Order #: [id number]: 1 FUTURE Prescriptions as of 12/17/2024 - [...] Status:Closed by SUZANNE MASON on 12/17/24 Normal [facility] CBC W Auto Differential pane l (Bld)on 12-14-2024 Basophils (Bld) [#/Vol] 0.03 10*3/uL Normal <0.11 [facility] Comment on above: Order Comment: Speci men Type: BLOOD SPECIMENOrdering Facility: [facility] Address: [address] [place] [address] [place] [address] Performed By: #### 5 7021-8 ####[facility] LABCLIA [id number] [place] [address] [place] Basophils/100 WBC (Bld) 0.3 % Normal [facility] Comment on above: Order Comment: Speci men Type: BLOOD SPECIMENOrdering Facility: [facility] Address: [address] [place] [address] Performed By: #### 5 7021-8 ####[facility] LABCLIA [id number] [place] [address] [place] Differential cell count method Nom (Bld) Auto Normal [facility] Comment on above: Order Comment: Speci men Type: BLOOD SPECIMENOrdering Facility: [facility] Address: [address] [place] [address] Performed By: #### 5 7021-8 ####[facility] LABCLIA [id number] [place] [address] [place] Eosinophils (Bld) [#/Vol] 0.11 10*3/uL Normal <0.46 [facility] Comment on above: Order Comment: Speci men Type: BLOOD SPECIMENOrdering Facility: [facility] Address: [address] [place] [address] Performed By: #### 5 7021-8 ####[facility] LABCLIA [id number] [place] [address] [place] Eosinophils/100 WBC (Bld) 1.1 % Normal [facility] Comment on above: Order Comment: Speci men Type: BLOOD SPECIMENOrdering Facility: [facility] Address: [address] [place] [address] Performed By: #### 5 7021-8 ####[facility] LABCLIA [id number] [place] [address] [place] Erythrocyte distribution width (RBC) [Ratio] 12.7 % Normal 11.5-15.0 [facility] Comment on above: Order Comment: Speci men Type: BLOOD SPECIMENOrdering Facility: [facility] Address: [address] [place] [address] Performed By: #### 5 7021-8 ####[facility] LABCLIA [id number] [place] [address] [place] Hematocrit (Bld) [Volume fraction] 45.3 % Normal 39.0-51.0 [facility] Comment on above: Order Comment: Speci men Type: BLOOD SPECIMENOrdering Facility: [facility] Address: [address] [place] [address] Performed By: #### 5 7021-8 ####[facility] LABIA [id number] [place] [address] [place] Hemoglobin (Bld) [Mass/Vol] 15.1 g/dL Normal 13.0-17.0 [facility] Comment on above: Order Comment: Speci men Type: BLOOD SPECIMENOrdering Facility: [facility] Address: [address] [place] [address] Performed By: #### 5 7021-8 ####[facility] LABIA [id number] [place] [address] [place] Immature granulocytes (Bld) [#/Vol] 0.07 10*3/uL Normal <0.10 [facility] Comment on above: Order Comment: Speci men Type: BLOOD SPECIMENOrdering Facility: [facility] Address: [address] [place] [address] Performed By: #### 5 7021-8 ####[facility] LABIA [id number] [place] [address] [place] Immature granulocytes/100 WBC (Bld) 0.7 % Normal [facility] Comment on above: Order Comment: Speci men Type: BLOOD SPECIMENOrdering Facility: [facility] Address: [address] [place] [address] Performed By: #### 5 7021-8 ####[facility] LABIA [id number] [place] [address] [place] Lymphocytes (Bld) [#/Vol] 1.92 10*3/uL Normal 1.00-4.00 [facility] Comment on above: Order Comment: Speci men Type: BLOOD SPECIMENOrdering Facility: [facility] Address: [address] [place] [address] Performed By: #### 5 7021-8 ####[facility] LABIA [id number] [place] [address] [place] Lymphocytes/100 WBC (Bld) 19.4 % Normal [facility] Comment on above: Order Comment: Speci men Type: BLOOD SPECIMENOrdering Facility: [facility] Address: [address] [place] [address] Performed By: #### 5 7021-8 ####[facility] [id number] [place] [address] [place] MCH (RBC) [Entitic mass] 30.4 pg Normal 26.0-34.0 [facility] Comment on above: Order Comment: Speci men Type: BLOOD SPECIMENOrdering Facility: [facility] Address: [address] [place] [address] Performed By: #### 5 7021-8 ####[facility] [id number] [place] [address] [place] MCHC (RBC) [Mass/Vol] 33.3 g/dL Normal 30.5-36.0 [facility] Comment on above: Order Comment: Speci men Type: BLOOD SPECIMENOrdering Facility: [facility] Address: [address] [place] [address] Performed By: #### 5 7021-8 ####[facility] [id number] [place] [address] [place] MCV (RBC) [Entitic vol] 91.3 fL Normal 80.0-100.0 [facility] Comment on above: Order Comment: Speci men Type: BLOOD SPECIMENOrdering Facility: [facility] Address: [address] [place] [address] Performed By: #### 5 7021-8 ####[facility] LABCLIA [id number] [facility] [address] [place] [address] [place] Monocytes (Bld) [#/Vol] 0.91 10*3/uL High <0.87 [facility] Comment on above: Order Comment: Speci men Type: BLOOD SPECIMENOrdering Facility: [facility] Address: [address] [place] [address] Performed By: #### 5 7021-8 ####[facility] LABCLIA [id number] [facility] [address], [facility] [place] Monocytes/100 WBC (Bld) 9.2 % Normal [facility] Comment on above: Order Comment: Speci men Type: BLOOD SPECIMENOrdering Facility: [facility] Address: [address] [place] [address] Performed By: #### 5 7021-8 ####[facility] LABCLIA [id number] [place] [address] [place] Neutrophils (Bld) [#/Vol] 6.87 10*3/uL Normal 1.45-7.50 [facility] Comment on above: Order Comment: Speci men Type: BLOOD SPECIMENOrdering Facility: [facility] Address: [address] [place] [address] Performed By: #### 5 7021-8 ####[facility] LABCLIA [id number] [facility] [address], [facility] [place] Neutrophils/100 WBC (Bld) 69.3 % Normal [facility] Comment on above: Order Comment: Speci men Type: BLOOD SPECIMENOrdering Facility: [facility] Address: [address] [place] [address] Performed By: #### 5 7021-8 ####[facility] LABCLIA [id number] [facility] [address], [facility] [place] Nucleated RBC (Bld) [#/Vol] 10*3/uL Normal <0.01 [facility] Comment on above: Order Comment: Speci men Type: BLOOD SPECIMENOrdering Facility: [facility] Address: [address] [place] [address] Performed By: #### 5 7021-8 ####[facility] LABCLIA [id number] [address] [address] [place] Nucleated RBC/100 WBC (Bld) [Ratio] 0.0 /100 WBC Normal [facility] Comment on above: Order Comment: Speci men Type: BLOOD SPECIMENOrdering Facility: [facility] Address: [address] [place] [address] Performed By: #### 5 7021-8 ####[facility] LABCLIA [id number] [address] [place] [address] [place] Platelet mean volume (Bld) [Entitic vol] 9.9 fL Normal 9.0-12.7 [facility] Comment on above: Order Comment: Speci men Type: BLOOD SPECIMENOrdering Facility: [facility] Address: [address] [place] [address] Performed By: #### 5 7021-8 ####[facility] LABIA [id number] [address] [place] [address] [place] Platelets (Bld) [#/Vol] 288 10*3/uL Normal 150-400 [facility] Comment on above: Order Comment: Speci men Type: BLOOD SPECIMENOrdering Facility: [facility] Address: [address] [place] [address] Performed By: #### 5 7021-8 ####[facility] LABCLIA [id number] [address] [address] [place] RBC (Bld) [#/Vol] 4.96 10*6/uL Normal 4.20-6.00 [facility] Comment on above: Order Comment: Speci men Type: BLOOD SPECIMENOrdering Facility: [facility] Address: [address] [id number] Performed By: #### 5 7021-8 ####[facility] LABIA [id number] [place] [id number] [place] WBC (Bld) [#/Vol] 9.91 10*3/uL Normal 3.70-11.00 [facility] Comment on above: Order Comment: Speci men Type: BLOOD SPECIMENOrdering Facility: [facility] Address: [address] [place] [address] Performed By: #### 5 7021-8 ####[facility] LABIA [id number] [place] [id number] [place] CNCOon 12-14-2024 CNCO Letter Text Normal [facility] CNOVon 12-14-2024 CNOV Office Visit (FAMPWS ) TUAN VEGA ([id number]) 1960 M Date Time Provider Department 12/14/24 10:40 AM [facility] During your visit today, we recorded the [...] Cardiology Follow-Up: 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 Your blood pressure looks good, [...] 2+ symmetr (more content not included)... Normal [facility] Comprehensive metabolic 2000 panelon 12-14-2024 Albumin [Mass/Vol] 4.6 g/dL Normal 3.9-4.9 [facility] Comment on above: Order Comment: Speci men Type: BLOOD SPECIMENOrdering Facility: [facility] Address: [address] [place] [address] Performed By: #### 2 4323-8 ####[facility] LABCLIA [id number] [facility] [address] [place] [address] [place] ALP [Catalytic activity/Vol] 95 U/L Normal 38-113 [facility] Comment on above: Order Comment: Speci men Type: BLOOD SPECIMENOrdering Facility: [facility] Address: [address] [place] [address] Performed By: #### 2 4323-8 ####[facility] LABCLIA [id number] [facility] [address] [place] [address] [place] ALT [Catalytic activity/Vol] 37 U/L Normal 10-54 [facility] Comment on above: Order Comment: Speci men Type: BLOOD SPECIMENOrdering Facility: [facility] Address: [address] [place] [address] Performed By: #### 2 4323-8 ####[facility] LABCLIA [id number] [address], [facility] [place] Anion gap [Moles/Vol] 12 mmol/L Normal 8-15 [facility] Comment on above: Order Comment: Speci men Type: BLOOD SPECIMENOrdering Facility: [facility] Address: [address] [place] [address] Performed By: #### 2 4323-8 ####[facility] LABCLIA [id number] [place] [id number] [place] AST [Catalytic activity/Vol] 26 U/L Normal 14-40 [facility] Comment on above: Order Comment: Speci men Type: BLOOD SPECIMENOrdering Facility: [facility] Address: [address] [place], [place] [address] Performed By: #### 2 4323-8 ####[facility] LABCLIA [id number] [address] [address] [place] Bilirubin [Mass/Vol] 1.1 mg/dL Normal 0.2-1.3 [facility] Comment on above: Order Comment: Speci men Type: BLOOD SPECIMENOrdering Facility: [facility] Address: [address] [place] [address] Performed By: #### 2 4323-8 ####[facility] LABCLIA [id number] [address] [address] [place] Calcium [Mass/Vol] 9.7 mg/dL Normal 8.5-10.2 [facility] Comment on above: Order Comment: Speci men Type: BLOOD SPECIMENOrdering Facility: [facility] Address: [address] [place], [place] [address] Performed By: #### 2 4323-8 ####[facility] LABCLIA [id number] [address] [address] [place] Chloride [Moles/Vol] 102 mmol/L Normal 98-107 [facility] Comment on above: Order Comment: Speci men Type: BLOOD SPECIMENOrdering Facility: [facility] Address: [address] [place], [place] [address] Performed By: #### 2 4323-8 ####[facility] LABCLIA [id number] [place] [id number] [place] CO2 [Moles/Vol] 24 mmol/L Normal 22-30 [facility] Comment on above: Order Comment: Speci men Type: BLOOD SPECIMENOrdering Facility: [facility] Address: [address] [place], [place] [address] Performed By: #### 2 4323-8 ####[facility] LABCLIA [id number] [facility] [address] [address] [place] Creatinine [Mass/Vol] 0.93 mg/dL Normal 0.73-1.22 [facility] Comment on above: Order Comment: Speci men Type: BLOOD SPECIMENOrdering Facility: [facility] Address: [address] [place], [place] [address] Performed By: #### 2 4323-8 ####[facility] LABCLIA [id number] [place] [id number] [place] eGFRcr SerPlBld CKD-EPI 2020 92 mL/min/1.73m??? Normal >=60 [facility] Comment on above: Order Comment: Ziggy gastelum Type: BLOOD SPECIMENOrdering Facility: [facility] Address: [address] [place] [address] Result Comment: Ally mated Glomerular Filtration Rate [...] actual GFR. Performed By: #### 2 4323-8 ####[facility] LABCLIA [id number] [place] [id number] [place] [place] Glucose [Mass/Vol] 89 mg/dL Normal 74-99 [facility] Comment on above: Order Comment: Ziggy gastelum Type: BLOOD SPECIMENOrdering Facility: [facility] Address: [address] [place] [address] Result Comment: The [place] Diabetes Association (ADA) provides guidance for cutoff [...] Standards of Medical Care in Diabetes 2016, [place] [employer] Association. Diabetes Care. 2016.39(Suppl 1). Performed By: #### 2 4323-8 ####[facility] LABCLIA [id number] [place] [id number] [place] Potassium [Moles/Vol] 4.6 mmol/L Normal 3.7-5.1 [facility] Comment on above: Order Comment: Speci men Type: BLOOD SPECIMENOrdering Facility: [facility] Address: [address] [place] [address] Performed By: #### 2 4323-8 ####[facility] LABCLIA [id number] [address] [address] [place] Protein [Mass/Vol] 7.2 g/dL Normal 6.3-8.0 [facility] Comment on above: Order Comment: Speci men Type: BLOOD SPECIMENOrdering Facility: [facility] Address: [address] [place] [address] Performed By: #### 2 4323-8 ####[facility] LABCLIA [id number] [place] [address] [place] Sodium [Moles/Vol] 138 mmol/L Normal 136-144 [facility] Comment on above: Order Comment: Speci men Type: BLOOD SPECIMENOrdering Facility: [facility] Address: [address] [place] [address] Performed By: #### 2 4323-8 ####[facility] LABCLIA [id number] [place] [address] [place] Urea nitrogen [Mass/Vol] 19 mg/dL Normal 9-24 [facility] Comment on above: Order Comment: Speci men Type: BLOOD SPECIMENOrdering Facility: [facility] Address: [address] [place] [address] Performed By: #### 2 4323-8 ####[facility] LABCLIA [id number] [place] [id number] [place] PSA/PROSTATE SPECIFIC ANTIGE N SCREENINGon 12-14-2024 Prostate specific Ag [Mass/Vol] 2.64 ng/mL High <2.60 [facility] Comment on above: Order Comment: Speci men Type: BLOOD SPECIMENOrdering Facility: [facility] Address: [address] [place] [address] Result Comment: Adam rodrigues PSA test methodology [...] Med 2003,349:335-42. Performed By: #### P SAS1 ####[facility] LABIA [id number] [address] OF [facility] Sabi 10-05-2024 KATINAN Telephone (AZIZA) TUAN VEGA ([id number]) 1960 M Date Time Provider Department 10/05/24 [...] Encounter Status:Closed by CHRISTINE PATEL on 10/05/24 [facility] Telephone (ANDERS) TUAN VEGA ([id number]) 1960 M Date Time Provider Department 08/21/24 [facility] During your visit today, we recorded [...] Encounter Status:Closed by SOPHIE HAWKINS on 08/21/24 [facility] CNOVon 06-01-2024 CN Office Visit (FAMKirtWS ) TUAN VEGA ([id number]) 1960 M Date Time Provider Department 06/01/24 [...] refill. ASSESSMENT/PLAN: 1. Coronary artery disease involving [place] heart without angina pectoris, unspecified vessel or [...] DEPRESSION SCREE (more content not included)... Normal [facility] Metabolic Prof miguel angel 03-16-2024 Albumin [Mass/Vol] 3.8 g/dL Normal 3.2-5.0 [facility] Comment on above: Performed By: #### L 782.9375, L500.1250 #### [facility] [address] [place], [address] Albumin/Globulin [Mass ratio] 1.1 {ratio} Normal 0.9-2.[address] [facility] Comment on above: Performed By: #### L 500.4050, L500.4100 #### [facility] [address] [place], [address] ALK P 92 U/L Normal 45-[address] [facility] Comment on above: Performed By: #### L 500.4050, L500.4100 #### [facility] [address] [place], [address] ALT [Catalytic activity/Vol] 45 U/L Normal 16-[address] [facility] Comment on above: Performed By: #### L 500.4050, L500.4100 #### [facility] [address] [place], [address] AST [Catalytic activity/Vol] 17 U/L Normal 15-[address] [facility] Comment on above: Performed By: #### L 500.4050, L500.4100 #### [facility] [address] [place], [address] Bilirubin [Mass/Vol] 0.80 mg/dL Normal 0.20-1.00 [facility] Comment on above: Result Comment: For patients on eltrombopag therapy, use of Dimension [place] TBIL is not recommended. Performed By: #### L 500.4050, L500.4100 #### [facility] [address] [place], [address] BUN/CRE 19.6 RATIO Normal 10-[address] [facility] Comment on above: Performed By: #### L 500.4050, L500.4100 #### [facility] [address] [place], [address] CA,Total 9.3 mg/dL Normal 8.5-10.[address] [facility] Comment on above: Performed By: #### L 500.4050, L500.4100 #### [facility] [address] [place], [address] Chloride [Moles/Vol] 108 mmol/L High 98-107 [facility] Comment on above: Performed By: #### L 500.4050, L500.4100 #### [facility] [address] [place], [address] CO2 [Moles/Vol] 27.0 mmol/L Normal 21.0-32.[address] [facility] Comment on above: Performed By: #### L 500.4050, L500.4100 #### [facility] [address] [place], [address] Creatinine [Mass/Vol] 1.02 mg/dL Normal 0.70-1.[address] [facility] Comment on above: Result Comment: The validity of the calculated GFR GFRAA in patients over 70 years has not been determined. Clinical correlation is essential. Performed By: #### L 500.4050, L500.4100 #### [facility] [address] [place], [address] EST GFR - AA 95 mL/min Normal >[address] [facility] Comment on above: Result Comment: Afri can [place] GFR Calc Performed By: #### L 500.4050, L500.4100 #### [facility] [address] [place], [address] GAP 5 Normal 5-[address] [facility] Comment on above: Performed By: #### L 500.4050, L500.4100 #### [facility] [address] [place], [address] GFR/1.73 sq M.predicted among non-blacks MDRD (S/P/Bld) [Vol rate/Area] 78 mL/min/{1.73_m2} Normal >[address] [facility] Comment on above: Result Comment: Non- GFR Calc Performed By: #### L 500.4050, L500.4100 #### [facility] [address] [place], [address] Globulin (S) [Mass/Vol] 3.5 g/dL Normal 2.2-4.[address] [facility] Comment on above: Performed By: #### L 500.4050, L500.4100 #### [facility] [address] [place], [address] Glucose [Mass/Vol] 132 mg/dL High 74-106 [facility] Comment on above: Result Comment: Fast ing Glucose result greater than or equal to 126 mg/dL suggests DIABETES MELLITUS per A.D.A. criteria. Performed By: #### L 500.4050, L500.4100 #### [facility] [address] [place], [address] Potassium [Moles/Vol] 4.0 mmol/L Normal 3.5-5.[address] [facility] Comment on above: Performed By: #### L 500.4050, L500.4100 #### [facility] [address] [place], [address] Sodium [Moles/Vol] 140 mmol/L Normal 136-145 [facility] Comment on above: Performed By: #### L 500.4050, L500.4100 #### [facility] [address] [place], [address] T PROT 7.3 g/dL Normal 6.4-8.[address] [facility] Comment on above: Performed By: #### L 500.4050, L500.4100 #### [facility] [address] [place], [address] Urea nitrogen [Mass/Vol] 20 mg/dL High 7-[address] [facility] Comment on above: Performed By: #### L 500.4050, L500.4100 #### [facility] [address] [place], [address] LDL CHOLESTEROL DIRECT (FOR REMOTE CRITICAL ACCESS HOSPITAL USE)Ordered By: Kate Santamaria on 03-16-2024 [facility] Lipid ProfileOrdered By: Edel Santamaria on 03-16-2024 Cholesterol [Mass/Vol] 142 mg/dL Normal 200 [facility] Comment on above: Result Comment: <200 mg/dL Desirable 200-240 mg/dL Borderline >240 mg/dL High Risk Performed By: #### L 500.4050, L500.4100 #### [facility] [address] [place], [address] Cholesterol in HDL [Mass/Vol] 44 mg/dL Normal [facility] Comment on above: Result Comment: The drugs N-Acetylcysteine and Metamizole may falsely depress this assay. Reference Range HDL <40 mg/dL Low HDL Cholesterol HDL >or= 60 mg/dL High HDL Cholesterol Performed By: #### L 500.4050, L500.4100 #### [facility] [address] [place], [address] Cholesterol in LDL [Mass/Vol] 80 mg/dL Normal 0-130 [facility] Comment on above: Performed By: #### L 500.4050, L500.4100 #### [facility] [address] [place], [address] Triglyceride [Mass/Vol] 92 mg/dL Normal [facility] Comment on above: Result Comment: The drugs N-Acetylcysteine and Metamizole may falsely depress this assay. Serum Triglycerides Reference Interval Normal <150 mg/dL Borderline high 150 - 199 mg/dL High 200 - 499 mg/dL Very High > or = 500 mg/dL Performed By: #### L 500.4050, L500.4100 #### [facility] [address] [place], [address] Lipid Profileon 03-16-2024 Cholesterol in VLDL [Mass/Vol] 18 mg/dL Normal 5-[address] [facility] Comment on above: Performed By: #### L 500.4050, L500.4100 #### [facility] [address] [place], [address] Cardiology Visit Reporton Cardiology Visit Report [facility] [address] [place] [address] OFFICE VISIT Date of Service: 02/06/24 MR#: [id number] Acct: [id number] Name: TUAN VEGA Rep #: [id number] : 1960 Provider: Dr. 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 Normal [facility] CBC W Auto Differential pane l (Bld)on 11-21-2023 Basophils (Bld) [#/Vol] 10*3/uL Normal <0.11 [facility] Comment on above: Order Comment: Speci men Type: BLOOD SPECIMEN [facility] Address: [address] [place] [address] Performed By: #### 5 7021-8 #### [facility] CLIA [id number] 1 [place] [address] [place] Basophils/100 WBC (Bld) 0.2 % Normal [facility] Comment on above: Order Comment: Speci men Type: BLOOD SPECIMEN [facility] Address: [address] [place] [address] Performed By: #### 5 7021-8 #### [facility] CLIA [id number] [address] [place] Differential cell count method Nom (Bld) Auto Normal [facility] Comment on above: Order Comment: Speci men Type: BLOOD SPECIMEN [facility] Address: [address] [place] [address] Performed By: #### 5 7021-8 #### [facility] CLIA [id number] [address] [place] [address] [place] Eosinophils (Bld) [#/Vol] 0.16 10*3/uL Normal <0.46 [facility] Comment on above: Order Comment: Speci men Type: BLOOD SPECIMEN [facility] Address: [address] [place] [address] Performed By: #### 5 7021-8 #### [facility] CLIA [id number] [address] Eosinophils/100 WBC (Bld) 1.8 % Normal [facility] Comment on above: Order Comment: Speci men Type: BLOOD SPECIMEN [facility] Address: [address] [place] [address] Performed By: #### 5 7021-8 #### [facility] CLIA [id number] [address] [place] Erythrocyte distribution width (RBC) [Ratio] 13.2 % Normal 11.5-15.0 [facility] Comment on above: Order Comment: Speci men Type: BLOOD SPECIMEN [facility] Address: [address] [place] [address] Performed By: #### 5 7021-8 #### [facility] CLIA [id number] [address] Hematocrit (Bld) [Volume fraction] 41.9 % Normal 39.0-51.0 [facility] Comment on above: Order Comment: Speci men Type: BLOOD SPECIMEN [facility] Address: [address] [place] [address] Performed By: #### 5 7021-8 #### [facility] CLIA [id number] [address] OF [place] Hemoglobin (Bld) [Mass/Vol] 13.5 g/dL Normal 13.0-17.0 [facility] Comment on above: Order Comment: Speci men Type: BLOOD SPECIMEN [facility] Address: [address] [place] [address] Performed By: #### 5 7021-8 #### [facility] CLIA [id number] [address] Immature granulocytes (Bld) [#/Vol] 0.05 10*3/uL Normal <0.10 [facility] Comment on above: Order Comment: Speci men Type: BLOOD SPECIMEN [facility] Address: [address] [place] [address] Performed By: #### 5 7021-8 #### [facility] CLIA [id number] [address] Immature granulocytes/100 WBC (Bld) 0.6 % Normal [facility] Comment on above: Order Comment: Speci men Type: BLOOD SPECIMEN [facility] Address: [address] [place] [address] Performed By: #### 5 7021-8 #### [facility] CLIA [id number] [address] OF [facility] Lymphocytes (Bld) [#/Vol] 1.73 10*3/uL Normal 1.00-4.00 [facility] Comment on above: Order Comment: Speci men Type: BLOOD SPECIMEN [facility] Address: [address] [place] [address] Performed By: #### 5 7021-8 #### [facility] CLIA [id number] [address] Lymphocytes/100 WBC (Bld) 20.0 % Normal [facility] Comment on above: Order Comment: Speci men Type: BLOOD SPECIMEN [facility] Address: [address] [place] [address] Performed By: #### 5 7021-8 #### [facility] CLIA [id number] [address] STATES [facility] MCH (RBC) [Entitic mass] 30.4 pg Normal 26.0-34.0 [facility] Comment on above: Order Comment: Speci men Type: BLOOD SPECIMEN [facility] Address: [address] [place] [address] Performed By: #### 5 7021-8 #### [facility] CLIA [id number] [address] MCHC (RBC) [Mass/Vol] 32.2 g/dL Normal 30.5-36.0 [facility] Comment on above: Order Comment: Speci men Type: BLOOD SPECIMEN [facility] Address: [address] [place] [address] Performed By: #### 5 7021-8 #### [facility] CLIA [id number] [address] [place] MCV (RBC) [Entitic vol] 94.4 fL Normal 80.0-100.0 [facility] Comment on above: Order Comment: Speci men Type: BLOOD SPECIMEN [facility] Address: [address] [place] [address] Performed By: #### 5 7021-8 #### [facility] CLIA [id number] [address] [place] Monocytes (Bld) [#/Vol] 0.86 10*3/uL Normal <0.87 [facility] Comment on above: Order Comment: Speci men Type: BLOOD SPECIMEN [facility] Address: [address] [place] [address] Performed By: #### 5 7021-8 #### [facility] CLIA [id number] [address] Monocytes/100 WBC (Bld) 9.9 % Normal [facility] Comment on above: Order Comment: Speci men Type: BLOOD SPECIMEN [facility] Address: [address] [place] [address] Performed By: #### 5 7021-8 #### [facility] CLIA [id number] [address] [place] Neutrophils (Bld) [#/Vol] 5.84 10*3/uL Normal 1.45-7.50 [facility] Comment on above: Order Comment: Speci men Type: BLOOD SPECIMEN [facility] Address: [address] [place] [address] Performed By: #### 5 7021-8 #### [facility] CLIA [id number] [address] Neutrophils/100 WBC (Bld) 67.5 % Normal [facility] Comment on above: Order Comment: Speci men Type: BLOOD SPECIMEN [facility] Address: [address] [place] [address] Performed By: #### 5 7021-8 #### [facility] CLIA [id number] [address] Nucleated RBC (Bld) [#/Vol] 10*3/uL Normal <0.01 [facility] Comment on above: Order Comment: Speci men Type: BLOOD SPECIMEN [facility] Address: [address] [place] [address] Performed By: #### 5 7021-8 #### [facility] CLIA [id number] [address] Nucleated RBC/100 WBC (Bld) [Ratio] 0.0 /100 WBC Normal [facility] Comment on above: Order Comment: Speci men Type: BLOOD SPECIMEN [facility] Address: [address] [place] [address] Performed By: #### 5 7021-8 #### [facility] CLIA [id number] [address] Platelet mean volume (Bld) [Entitic vol] 10.6 fL Normal 9.0-12.7 [facility] Comment on above: Order Comment: Speci men Type: BLOOD SPECIMEN [facility] Address: [address] [place] [address] Performed By: #### 5 7021-8 #### [facility] CLIA [id number] [address] [place] Platelets (Bld) [#/Vol] 245 10*3/uL Normal 150-400 [facility] Comment on above: Order Comment: Speci men Type: BLOOD SPECIMEN [facility] Address: [address] [place] [address] Result Comment: No c lot detected. Performed By: #### 5 7021-8 #### [facility] CLIA [id number] [address] OF [facility] RBC (Bld) [#/Vol] 4.44 10*6/uL Normal 4.20-6.00 [facility] Comment on above: Order Comment: Speci men Type: BLOOD SPECIMEN [facility] Address: [address] [place] [address] Performed By: #### 5 7021-8 #### [facility] CLIA [id number] [address] OF [facility] WBC (Bld) [#/Vol] 8.66 10*3/uL Normal 3.70-11.00 [facility] Comment on above: Order Comment: Speci men Type: BLOOD SPECIMEN [facility] Address: [address] [place] [address] Performed By: #### 5 7021-8 #### [facility] CLIA [id number] [address] Comprehensive metabolic 2000 panelon 11-21-2023 Albumin [Mass/Vol] 4.3 g/dL Normal 3.9-4.9 [facility] Comment on above: Order Comment: Speci men Type: BLOOD SPECIMEN [facility] Address: [address] [place] [address] Performed By: #### P SAS1, 70399-5, 04949-4 #### [facility] CLIA [id number] [address] ALP [Catalytic activity/Vol] 85 U/L Normal 38-113 [facility] Comment on above: Order Comment: Speci men Type: BLOOD SPECIMEN [facility] Address: [address] [place] [address] Performed By: #### P SAS1, 27596-6, 23198-0 #### [facility] CLIA [id number] [address] ALT With P-5'-P [Catalytic activity/Vol] 26 U/L Normal 10-54 [facility] Comment on above: Order Comment: Speci men Type: BLOOD SPECIMEN [facility] Address: [address] [place] [address] Performed By: #### P SAS1, , #### [facility] CLIA [id number] [address] STATES OF [facility] Anion gap [Moles/Vol] 9 mmol/L Normal 8-15 [facility] Comment on above: Order Comment: Speci men Type: BLOOD SPECIMEN [facility]ing Facility: [facility] Address: [address] [place] [address] Performed By: #### P SAS1, , #### [facility] CLIA [id number] [address] STATES OF [facility] AST With P-5'-P [Catalytic activity/Vol] 18 U/L Normal 14-40 [facility] Comment on above: Order Comment: Speci men Type: BLOOD SPECIMEN [facility] Address: [address] [place] [address] Performed By: #### P SAS1, , #### [facility] CLIA [id number] [address] [place] Bilirubin [Mass/Vol] 0.8 mg/dL Normal 0.2-1.3 [facility] Comment on above: Order Comment: Speci men Type: BLOOD SPECIMEN Ordering Facility: [facility] Address: [address] [place] [address] Performed By: #### P SAS1, , #### [facility] CLIA [id number] [address] [place] Calcium [Mass/Vol] 9.3 mg/dL Normal 8.5-10.2 [facility] Comment on above: Order Comment: Speci men Type: BLOOD SPECIMEN Ordering Facility: [facility] Address: [address] [place] [address] Performed By: #### P SAS1, 47505-8, 39876-1 #### [facility] CLIA [id number] [address] [place] Chloride [Moles/Vol] 105 mmol/L Normal 98-107 [facility] Comment on above: Order Comment: Speci men Type: BLOOD SPECIMEN [facility]ing Facility[facility] Address: [address] [place] [address] Performed By: #### P SAS1, 04884-5, 01865-2 #### [facility] CLIA [id number] [address] [place] CO2 [Moles/Vol] 27 mmol/L Normal 22-30 [facility] Comment on above: Order Comment: Speci men Type: BLOOD SPECIMEN [facility]ing Facility: [facility] Address: [address] [place] [address] Performed By: #### P SAS1, , 59758-3 #### [facility] CLIA [id number] [address] Creatinine [Mass/Vol] 0.97 mg/dL Normal 0.73-1.22 [facility] Comment on above: Order Comment: Speci men Type: BLOOD SPECIMEN Ordering Facility: [facility] Address: [address] [place] [address] Performed By: #### P SAS1, , 52186-9 #### [facility] CLIA [id number] [address] Creatinine and Glomerular filtration rate.predicted panel (S/P/Bld) 88 mL/min/1.73m??? Normal >=60 [facility] Comment on above: Order Comment: Speci men Type: BLOOD SPECIMEN Ordering Facility: [facility] Address: [address] [place] [address] Result Comment: Ally mated Glomerular Filtration Rate [...] Performed By: #### P CALLY1, , #### [facility] CLIA [id number] 1 [place] [address] [place] Glucose [Mass/Vol] 121 mg/dL High 74-99 [facility] Comment on above: Order Comment: Ziggy gastelum Type: BLOOD SPECIMEN Ordering Facility: [facility] Address: [address] [place] [address] Result Comment: The [place] Diabetes Association (ADA) provides guidance for cutoff [...] Standards of Medical Care in Diabetes 2016, [place] [employer]. Diabetes Care. 2016.39(Suppl 1). Performed By: #### P CALLY1, , #### [facility] CLIA [id number] [address] [place] [address] [place] Potassium [Moles/Vol] 4.7 mmol/L Normal 3.7-5.1 [facility] Comment on above: Order Comment: Ziggy gastelum Type: BLOOD SPECIMEN Ordering Facility: [facility] Address: [address] [place] [address] Performed By: #### P CALLY1, , #### [facility] CLIA [id number] [address] [place] [address] [place] Protein [Mass/Vol] 6.7 g/dL Normal 6.3-8.0 [facility] Comment on above: Order Comment: Ziggy gastelum Type: BLOOD SPECIMEN Ordering Facility: [facility] Address: [address] [place] [address] Performed By: #### P SAS1, , 00755-6 #### [facility] CLIA [id number] [address] [place] [address] [place] Sodium [Moles/Vol] 141 mmol/L Normal 136-144 [facility] Comment on above: Order Comment: Speci men Type: BLOOD SPECIMEN Ordering Facility: [facility] Address: [address] [place] [address] Performed By: #### P SAS1, , 65569-8 #### [facility] CLIA [id number] [address] [place] Urea nitrogen [Mass/Vol] 18 mg/dL Normal 9-24 [facility] Comment on above: Order Comment: Speci men Type: BLOOD SPECIMEN Ordering Facility: [facility] Address: [address] [place] [address] Performed By: #### P SAS1, , #### [facility] CLIA [id number] [address] [place] [address] [place] Magnesium SerPl-mCncon 11-20 Magnesium [Mass/Vol] 2.2 mg/dL Normal 1.7-2.3 [facility] Comment on above: Order Comment: Speci men Type: BLOOD SPECIMEN Ordering Facility: [facility] Address: [address] [place] [address] Performed By: #### P SAS1, , #### [facility] CLIA [id number] 1 [place] [address] [place] PSA/PROSTATE SPECIFIC ANTIGE N SCREENINGon 11-21-2023 Prostate specific Ag [Mass/Vol] 1.58 ng/mL Normal <2.60 [facility] Comment on above: Order Comment: Speci men Type: BLOOD SPECIMEN Ordering Facility: [facility] Address: [address] [place] [address] Result Comment: Tota l PSA test methodology used is the Electrochemiluminescence Immunoassay by [employer]. Total PSA values by differing methodologies cannot be interchanged. Performed By: #### P SAS1, 10729-6, 32318-0 #### [facility] CLIA [id number] [address] [place] [address] [place] GALARZA XR FINGERS(S) [...] by: PAWAN PECK MD, Date: 11/11/2022 15:49 [facility] No Panel Informationon 03-23 [facility] SPIROMETRY - BASELINE AND PO ST DILATORon 03-23-2022 DLCO (ml/min/mmHg) 25.73 ml/min/mmHg [facility] DLCO/VA (ml/min/mmHg/L) 3.80 ml/min/mmHg/L [facility] ERV BOX (L) 0.96 L [facility] FPN86-59% POST (L/S) 3.95 L/S [facility] CXC24-08% PRE (L/S) 4.04 L/S [facility] land [facility] FEV1 PRE (L) 4.10 L [facility] FEV1/FVC POST (%) 84 % [facility] PRE (%) 80 % [facility] FEV1_POST (L) 4.05 L [facility] FRC Box (L) 3.12 L [facility] FVC POST (L) 4.84 L [facility] FVC PRE (L) 5.13 L [facility] IC BOX (L) 3.82 L [facility] PEF POST (L/S) 10.12 L/S [facility] PEF PRE (L/S) 9.99 L/S [facility] RV Box (L) 2.07 L [facility] RV/TLC Box (%) 30 % [facility] T[facility] Box (L) 6.89 L [facility] VA (L) 6.77 L [facility] VC (L) BOX 4.78 L [facility] Lab Report: Lipid Profileon 12-27-2016 Cholesterol 113 mg/dL Invalid Interpretation Code 200 [employer] Work Phone: [phone] HDL Cholesterol 42 mg/dL Invalid Interpretation Code [employer] Work Phone: [phone] LDL Cholesterol 52 mg/dL Invalid Interpretation Code 0-130 [employer] Work Phone: [phone] Triglyceride 96 mg/dL Invalid Interpretation Code [employer] Work Phone: [phone] very low density lipoproteins 19 mg/dL Invalid Interpretation Code 5-40 [employer] Work Phone: [phone] Lab Report: Liver Profileon 12-27-2016 Alanine aminotransferase (ALT) 47 U/L Invalid Interpretation Code 12-78 [employer] Work Phone: [phone] Albumin 3.9 g/dL Invalid Interpretation Code 3.4-5.0 [employer] Work Phone: [phone] Alkaline phosphatase (ALP) 75 U/L Invalid Interpretation Code 45-117 [employer] Work Phone: [phone] ALP enzyme act/vol (Bld) 75 U/L Invalid Interpretation Code 45-117 [employer] Work Phone: [phone] Aspartate aminotransferase (AST) 19 U/L Invalid Interpretation Code 15-37 [employer] Work Phone: [phone] Bilirubin (direct) 0.27 mg/dL Invalid Interpretation Code 0.00-0.30 [employer] Work Phone: [phone] Bilirubin (total) 1.00 mg/dL Invalid Interpretation Code 0.20-1.00 [employer] Work Phone: [phone] Globulin 3.1 g/dL Invalid Interpretation Code 2.3-3.5 [employer] Work Phone: [phone] Protein 7.0 g/dL Invalid Interpretation Code 6.4-8.2 [employer] Phone: [phone] Office Visiton 11-08-2016 Documentation of current medications (procedure) Done Invalid Interpretation Code [employer] Work Phone: [phone] Protein mass conc Done Invalid Interpretation Code [facility] Work Phone: [phone] Tobacco smoking status NHIS Never smoker Invalid Interpretation Code [facility] Work Phone: [phone] Tobacco use CPHS Never smoker Invalid Interpretation Code [facility] Work Phone: [phone] Lab Report: Lipid Profileon 07-22-2016 Cholesterol 120 mg/dL 200 [facility] Work Phone: [phone] HDL Cholesterol 44 mg/dL [facility] Work Phone: [phone] LDL Cholesterol 62 mg/dL 0-130 [facility] Work Phone: [phone] Triglyceride 70 mg/dL [facility] Work Phone: [phone] very low density lipoproteins 14 mg/dL 5-40 [facility] Work Phone: [phone]) Lab Report: Liver Profileon 07-22-2016 Alanine aminotransferase (ALT) 53 U/L 12-78 [facility] Work Phone: [phone] Albumin 4.1 g/dL 3.4-5.0 [facility] Work Phone: [phone] Alkaline phosphatase (ALP) 70 U/L Invalid Interpretation Code 45-117 [facility] Work Phone: [phone] ALP enzyme act/vol (Bld) 70 U/L 45-117 [facility] Work Phone: [phone] Aspartate aminotransferase (AST) 23 U/L 15-37 [facility] Work Phone: [phone] Bilirubin (direct) 0.21 mg/dL 0.00-0.30 [facility] Work Phone: [phone] Bilirubin (total) 1.00 mg/dL 0.20-1.00 [facility] Work Phone: [phone] Globulin 3.1 g/dL Invalid Interpretation Code 2.3-3.5 [facility] Work Phone: [phone] Globulin mass conc (S) 3.1 g/dL 2.3-3.5 [facility] Work Phone: [phone] Protein 7.2 g/dL 6.4-8.2 [facility] [employer] Work Phone: [phone] Office Visiton 04-14-2016 Dietary management education, guidance, and counseling (procedure) yes Invalid Interpretation Code [facility] Work Phone: [phone] Documentation of current medications (procedure) Done Invalid Interpretation Code [facility] Work Phone: [phone]) Clinical Lists Update: [facility]04-09-2016 Left ventricular Ejection fraction 48 % Invalid Interpretation Code [facility] Work Phone: [phone] Office Visiton 04-04-2015 Tobacco use CPHS Never smoker Invalid Interpretation Code [facility] Work Phone: [phone] Office Visiton 04-12-2014 cardiac risk group C Invalid Interpretation Code [facility] [employer] Work Phone: [phone] General cardiovascular disease 10Y risk [#] [place].D'Agost[place] o N/A Invalid Interpretation Code [facility] Work Phone: [phone] Lab Report: [facility] 12-09-19 14 ALK 83 U/L Normal 45-117 [facility] Work Phone: [phone] GE use only - for [employer] import when terms are not otherwise specified 83 U/L Normal 45-117 [facility] Work Phone: [phone] Clinical Lists Update: [facility] 06-15-2013 Anion gap 4 mmol/L Invalid Interpretation Code [facility] Work Phone: [phone] Anion gap 4 molar conc 4 Invalid Interpretation Code [facility] Work Phone: [phone] Anion gap molar conc 4 mmol/L [facility] Work Phone: [phone] BUN/Creatinine Ratio 19.0 mg/mg Invalid Interpretation Code [facility] Work Phone: [phone] Calcium 8.8 mg/dL Invalid Interpretation Code [facility] Work Phone: [phone] Chloride 105 mmol/L Invalid Interpretation Code [facility] Work Phone: [phone] CO2 29.0 mmol/L Invalid Interpretation Code [facility] Work Phone: [phone] CO2 ppres (BldV) 29.0 mmol/L Invalid Interpretation Code [facility] Work Phone: [phone] Creatinine 1.0 mg/dL Invalid Interpretation Code [employer] Work Phone: [phone] Erythrocytes (RBC) 4.62 10*6/uL Invalid Interpretation Code [employer] Work Phone: [phone] Glucose 89 mg/dL Invalid Interpretation Code [employer] Work Phone: [phone] Glucose mass conc 89 mg/dL Invalid Interpretation Code [employer] Work Phone: [phone] Hematocrit (HCT) 40.8 % Invalid Interpretation Code [employer] Work Phone: [phone] Hematocrit Volume Fraction (Bld) 40.8 % [employer] Work Phone: [phone] Hemoglobin mass conc (Bld) 13.6 g/dL Invalid Interpretation Code [employer] Work Phone: [phone] MCH 29.4 pg Invalid Interpretation Code [employer] Work Phone: [phone] MCH Entitic mass (RBC) 29.4 pg [employer] Work Phone: [phone] MCV 88.3 fL Invalid Interpretation Code [employer] Work Phone: [phone] MCV Entitic volume (RBC) 88.3 fL [employer] Work Phone: [phone] Platelets 262 10*3/mm3 Invalid Interpretation Code [employer] Work Phone: [phone] Platelets #/vol (Bld) 262 10*3/mm3 [employer] Work Phone: [phone] Potassium molar conc 3.7 mmol/L Invalid Interpretation Code [employer] Work Phone: [phone] RBC #/vol (Bld) 4.62 10*6/uL [employer] Work Phone: [phone] Sodium 138 mmol/L Invalid Interpretation Code [employer] Work Phone: [phone] Urea nitrogen 19 mg/dL Invalid Interpretation Code [employer] Work Phone: [phone] WBC #/vol (Bld) 8.1 10*3/uL [employer] Work Phone: [phone] WBC (Leukocytes) 8.1 10*3/uL Invalid Interpretation Code [employer] Work Phone: [phone] Replaced Document: Rey CARBONE Observationson 04-26-2013 EKG QRS axis -17 deg Invalid Interpretation Code [employer] Work Phone: [phone] electrocardiogram interpretation Sinus Rhythm -Inferior infarct -age undetermined . ABNORMAL Invalid Interpretation Code [employer] Work Phone: [phone] Interpretation Sinus Rhythm -Inferi or infarct -age undetermined . ABNORMAL Invalid Interpretation Code [employer] Work Phone: [phone] P [place] 14 deg Invalid Interpretation Code [employer] Work Phone: [phone] P wave axis, electrocardiogram 14 deg Invalid Interpretation Code [employer] Work Phone: [phone] [place] Interval 162 ms Invalid Interpretation Code [employer] Work Phone: [phone] [place] interval, electrocardiogram 162 ms Invalid Interpretation Code [employer] Work Phone: [phone] Pulse (Heart Rate) 407 ms Invalid Interpretation Code [employer] Work Phone: [phone] Pulse (Heart Rate) 71 /min Invalid Interpretation Code [employer] Work Phone: [phone] QRS axis, electrocardiogram -17 deg Invalid Interpretation Code [employer] Phone: [phone] QRS Duration 104 ms Invalid Interpretation Code [employer] Phone: [phone] QRS duration, electrocardiogram 104 ms Invalid Interpretation Code [employer] Phone: [phone] QT Interval new path ms Invalid Interpretation Code [employer] Work Phone: [phone] QT interval, electrocardiogram new path ms Invalid Interpretation Code [employer] Work Phone: [phone] T [place] -43 deg Invalid Interpretation Code [employer] Phone: [phone] T wave axis, electrocardiogram -43 deg Invalid Interpretation Code [employer] Phone: [phone] Clinical Lists Update: 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 Erythrocyte distribution width Auto Ratio (RBC) 13.8 % Invalid Interpretation Code [employer] Phone: [phone] Erythrocyte distribution width Ratio (RBC) 13.8 % [employer] Work Phone: [phone] MCHC mass conc (RBC) 34.2 g/dL Invalid Interpretation Code [facility] Work Phone: [phone] MCHC mass conc (RBC) 34.2 g/dL [facility] Work Phone: [phone] Vital Signs Date Time Vital Sign Value Performing Clinician Facility 06-01-2024 15:55-0500 Diastolic blood pressure 70 mm[Hg] Raymond Lu MD Work Phone: [facility] 06-01-2024 15:55-0500 Systolic blood pressure 126 mm[Hg] Raymond Lu MD Work Phone: [facility] 06-01-2024 15:31-0500 Body height 181.6 cm Raymond Lu MD Work Phone: [facility] 06-01-2024 15:31-0500 Body mass index (BMI) [Ratio] 34.38 kg/m2 Raymond Lu MD Work Phone: [facility] 06-01-2024 15:31-0500 Body weight 113.4 kg Raymond Lu MD Work Phone: [facility] 06-01-2024 15:31-0500 Heart rate 73 /min Raymond Lu MD Work Phone: [facility] 06-01-2024 15:31-0500 SaO2% (BldA) [Mass fraction] 95 % Raymond Lu MD Work Phone: [facility] 12-22-2023 09:45-0400 Body height 180.3 cm Loraine Mcneill VOLCANOLOGY PROFESSOR Work Phone: [facility] 12-22-2023 09:45-0400 Body mass index (BMI) [Ratio] 34.73 kg/m2 Loraine Mcneill VOLCANOLOGY PROFESSOR Work Phone: [facility] 12-22-2023 09:45-0400 Body weight 112.95 kg Loraine Mcneill VOLCANOLOGY PROFESSOR Work Phone: [facility] 12-22-2023 09:45-0400 Diastolic blood pressure 90 mm[Hg] Loraine Mcneill VOLCANOLOGY PROFESSOR Work Phone: [facility] 12-22-2023 09:45-0400 Heart rate 64 /min Loraine Mcneill VOLCANOLOGY PROFESSOR Work Phone: [facility] 12-22-2023 09:45-0400 SaO2% (BldA) [Mass fraction] 97 % Loraine Mcneill VOLCANOLOGY PROFESSOR Work Phone: [facility] 12-22-2023 09:45-0400 Systolic blood pressure 142 mm[Hg] Loraine Mcneill VOLCANOLOGY PROFESSOR Work Phone: [facility] 09-26-2023 18:51-0400 Body mass index (BMI) [Ratio] 33.7 kg/m2 Raymond Lu MD Work Phone: [facility] 09-26-2023 18:51-0400 Body weight 111.13 kg Raymond Lu MD Work Phone: [facility] 09-26-2023 18:51-0400 Diastolic blood pressure 78 mm[Hg] Raymond Lu MD Work Phone: [facility] 09-26-2023 18:51-0400 Heart rate 77 /min Raymond Lu MD Work Phone: [facility] 09-26-2023 18:51-0400 SaO2% (BldA) [Mass fraction] 95 % Raymond Lu MD Work Phone: [facility] 09-26-2023 18:51-0400 Systolic blood pressure 132 mm[Hg] Raymond Lu MD Work Phone: [facility] 03-23-2022 11:44-0500 Body height 181.6 cm Pulm Wstr Work Phone: [facility] 03-23-2022 11:44-0500 Body weight 113.85 kg Pulm Wstr Work Phone: [facility] 03-23-2022 11:44-0500 Heart rate 77 /min Pulm [facility]str Work Phone: [facility] 03-23-2022 11:44-0500 Respiratory rate 14 /min Pulm [facility]str Work Phone: [facility] 03-23-2022 11:44-0500 SaO2% (BldA) [Mass fraction] 97 % Pulm [facility]str Work Phone: [facility] 03-01-2022 14:15-0500 Diastolic blood pressure 86 mm[Hg] Raymond Lu MD Work Phone: [facility] 03-01-2022 14:15-0500 Systolic blood pressure 138 mm[Hg] Raymond Lu MD Work Phone: [facility] 03-01-2022 13:48-0500 Body height 181.6 cm Raymond Lu MD Work Phone: [facility] 03-01-2022 13:48-0500 Body weight 114.31 kg Raymond Lu MD Work Phone: [facility] 03-01-2022 13:48-0500 Heart rate 75 /min Raymond Lu MD Work Phone: [facility] 03-01-2022 13:48-0500 SaO2% (BldA) [Mass fraction] 97 % Raymond Lu MD Work Phone: [facility] 08-27-2021 13:46-0400 Body weight 112.95 kg Raymond Lu MD Work Phone: [facility] 08-27-2021 13:46-0400 Diastolic blood pressure 82 mm[Hg] Raymond Lu MD Work Phone: [facility] 08-27-2021 13:46-0400 Heart rate 72 /min Raymond Lu MD Work Phone: [facility] 08-27-2021 13:46-0400 Systolic blood pressure 142 mm[Hg] Raymond Lu MD Work Phone: [facility] 11-08-2016 16:08-0400 BMI (Body Mass Index) 30.68 kg/m2 Severino [facility] Work Phone: 11-08-2016 16:08-0400 BP Diastolic 80 mm[Hg] [facility] Work Phone: 11-08-2016 16:08-0400 BP Systolic 132 mm[Hg] Severino Quiroga [facility] Work Phone: 11-08-2016 16:08-0400 Height 180.34 cm Severino Quiroga [facility] Work Phone: 11-08-2016 16:08-0400 Pulse (Heart Rate) 84 /min Severino Quiroga [facility] Work Phone: 11-08-2016 16:08-0400 Respiratory Rate 14 /min [facility] Work Phone: 11-08-2016 16:08-0400 Weight 99.79 kg Severino Quiroga [facility] Work Phone: 04-14-2016 16:24-0500 BMI (Body Mass Index) 31.38 kg/m2 Dayna Ng [facility] Work Phone: 04-14-2016 16:24-0500 BP Diastolic 88 mm[Hg] Dayna DeFinis [facility] Work Phone: 04-14-2016 16:24-0500 BP Systolic 140 mm[Hg] Breezyumi DeFinis [facility] Work Phone: 04-14-2016 16:24-0500 BSA (Body Surface Area) 2.22 m2 Harfang DeFinis [facility] Work Phone: 04-14-2016 16:24-0500 Pulse (Heart Rate) 72 /min Harumi DeFinis [facility] Work Phone: 04-14-2016 16:24-0500 Respiratory Rate 14 /min Harfang DeFinis [facility] Work Phone: 04-14-2016 16:24-0500 Weight 102.06 kg Harumi DeFinis [facility] Work Phone: 06-08-2013 11:30-0400 BP Diastolic 82 mm[Hg] Harumi DeFinis [facility] Work Phone: 06-08-2013 11:30-0400 BP Systolic 124 mm[Hg] Dayna [facility] Work Phone: 04-26-2013 10:35-0500 Heart rate 71 /min [facility] Work Phone: 04-26-2013 10:35-0500 Heart rate 407 ms Severino Quiroga [facility] Work Phone: 04-26-2013 10:12-0500 Height 180.34 cm Dayna [facility] Work Phone: Encounters Encounter Date Encounter Type Care Provider Facility Start: 12-18-2024 End: 12-18-2024 ambulatory RAYMOND LU Facility:[facility] Start: 12-17-2024 End: 12-17-2024 ambulatory RAYMOND LU Facility:[facility] Start: 12-14-2024 End: 12-14-2024 ambulatory RAYMOND LU Facility:[facility] Start: 10-16-2024 End: 10-16-2024 ambulatory RAYMOND MCCRAY JR Facility:[facility] Start: 10-05-2024 End: 10-05-2024 Telephone encounter Raymond Mccray MD Work Phone: Sleep Comment on above: cpap compliance Start: 08-21-2024 End: 08-21-2024 Telephone encounter Raymond Lu MD Work Phone: Family [facility] Comment on above: Medication Request Start: 06-01-2024 End: 06-01-2024 ambulatory RAYMOND LU Facility:[facility] Start: 06-01-2024 End: 06-01-2024 Patient encounter procedure Raymond Lu MD Work Phone: [facility] Comment on above: Coronary artery dise ase involving ivan[place] bay heart without angina pectoris, unspecified vessel or lesion type (Primary Dx); Primary hypertension; Hyperlipidemia, unspecified hyperlipidemia type; Sleep apnea, unspecified type; RLS (restless legs syndrome); Screening for prostate cancer; Screening for depression; Encounter for screening examination for other mental health and behavioral disorders; Bilateral hearing loss, unspecified hearing loss type Start: 03-16-2024 End: 03-16-2024 Chart abstracting Kate Santamaria MA [facility] Start: 03-16-2024 End: 03-16-2024 ambulatory Billy Gavin Facility:[facility] Start: 02-06-2024 End: 02-06-2024 ambulatory [facility] Facility:[facility] Start: 12-22-2023 End: 12-22-2023 Bamboo flowsheet Loraine Mcneill VOLCANOLOGY PROFESSOR Work Phone: [facility] Start: 12-22-2023 End: 12-22-2023 Bamboo flowsheet Loraine Roberts Wedebit VOLCANOLOGY PROFESSOR Work Phone: [facility] Start: 12-22-2023 End: 12-22-2023 Office outpatient visit 25 minutes Loraine Mcneill VOLCANOLOGY PROFESSOR Work Phone: [facility] Comment on above: ALEXANDRA (obstructive sle ep apnea) (Primary Dx); Insomnia, unspecified type Start: 12-19-2023 End: 12-19-2023 Telephone encounter Raymond Lu MD Work Phone: [facility] Comment on above: [facility] Start: 11-21-2023 End: 11-21-2023 Telephone encounter Raymond Lu MD Work Phone: [facility] Comment on above: Results Start: 11-21-2023 End: 11-21-[address] [facility] Facility:[facility] Start: 09-26-2023 End: 09-26-2023 Patient encounter procedure Raymond Lu MD Work Phone: [facility] Comment on above: Coronary artery dise ase involving [place] heart without angina pectoris, unspecified vessel or lesion type (Primary Dx); RLS (restless legs syndrome); Primary hypertension; Hyperlipidemia, unspecified hyperlipidemia type; Sleep apnea, unspecified type; Screening for colon cancer; Screening for prostate cancer Start: 05-20-2023 End: 05-20-2023 ambulatory Raymond Lu MD Work Phone: [facility] Comment on above: sheet on meds [...] 12-10-2022 Refill Raymond Lu MD Work Phone: [facility] Comment on above: Refill Request Start: 11-11-2022 End: 11-12-2022 ambulatory NO PCP AA NO PCP [facility] Start: 03-23-2022 End: 03-23-2022 ambulatory [facility] Work Phone: [facility] Comment on above: Spirometry Start: 03-23-2022 End: 03-23-2022 Patient encounter procedure [facility] Start: 03-01-2022 End: 03-01-2022 Patient encounter procedure Raymond Lu MD Work Phone: [facility] Comment on above: Primary hypertension (Primary Dx); Encounter for immunization; Coronary artery disease involving [place] heart without angina pectoris, unspecified vessel or lesion type; Hyperlipidemia, unspecified hyperlipidemia type; Sleep apnea, unspecified type; RLS (restless legs syndrome); Need for influenza vaccination; Cough, unspecified type Start: 08-27-2021 End: 08-27-2021 Patient encounter procedure Raymond Lu MD Work Phone: [facility] Comment on above: Primary hypertension (Primary Dx); RLS (restless legs syndrome); Coronary artery disease involving [place] heart without angina pectoris, unspecified vessel or lesion type; Hyperlipidemia, unspecified hyperlipidemia type; Sleep apnea, unspecified type Procedures Date Procedure Procedure Detail Performing Clinician Start: 06-01-2024 Adult depression screening assessment Raymond Lu MD Work Phone: Start: 03-16-2024 LDL CHOLESTEROL DIRECT (FOR REMOTE CRITICAL [facility] USE) [facility] Provider Start: 03-25-2022 Lipid 1996 panel - Serum or Plasma Raymond Lu MD Work Phone: Start: 03-23-2022 Brncdilat rspse spmtry pre&post-brncdilat admn Raymond Lu MD Work Phone: Start: 03-01-2022 INFLUENZA VACCINE QUADRIVALENT 6 MO - 64 YRS IM Raymond Lu MD Work Phone: Start: 03-01-2022 [employer] COVID-19 BIVALENT BOOSTER VACCINE, AGE 12+ YR [...] Start: 10-11-2014 End: 01-13-2015 *Hepatic Function Panel tSeven Duron MD Start: 10-11-2014 End: 10-11-2014 Follow [...] RSV Vaccine (1 - 1-dose 75+ series) [facility] Start: 11-20-2028 Prostate specific an tigen measurement Prostate Cancer Screening Discussion [facility] Start: 03-25-2027 Lipid 1996 panel - S [place] or Plasma Lipid Screening [facility] Start: 03-25-2027 Lipid panel Lipid Screening [facility] Start: 03-25-2027 LIPID SCREEN LIPID SCREEN [facility] Start: 11-20-2026 Diabetes Screening Diabetes Screenin g [facility] Start: 07-30-2025 LIPID SCREEN LIPID SCREEN [facility] Start: 06-01-2025 Annual PCP Team Financial Compliance Manager yandy Disease Visit Annual PCP Team Chronic Disease Visit [facility] Start: 06-01-2025 Anxiety Screening Anxiety Screening [facility] Start: 06-01-2025 BP Controlled (<130/80) BP Controlle d (<130/80) [facility] Start: 06-01-2025 Covid-19 Vaccine () Covid-19 Vaccine () [facility] Comment on above: Postponed from 11/26 (Declined at this time) Start: 06-01-2025 Depression Screening Depression Scre ening [facility] Start: 06-01-2025 Pneumococcal Vaccine : 50+ (1 of 1 - PCV) Pneumococcal Vaccine: 50+ (1 of 1 - PCV) [facility] Comment on above: Postponed from 07/10 (Declined at this time) Start: 06-01-2025 Urine microalbumin profile DTa P,Tdap,Td Vaccine (1 - Tdap) [facility] Comment on above: Postponed from 07/10 (Declined at this time) Start: 03-25-2025 DIABET[facility]CREEN [facility] Start: 03-25-2025 Diabetes Screening Diabetes Screenin g [facility] Start: 03-16-2025 Hepatitis B surface antibody level LDL Cholesterol [facility] Start: 12-14-2024 End: 12-14-2024 Patient encounter procedure 12/14/2024 10:40 AM EDT Office Visit [facility] [address] [place] [address] Raymond Lu MD [address] [place], [place] [id number] 6 month follow up. Fasting labs prior [facility] Comment on above: 6 month follow up. F asting labs prior Start: 12-02-2024 End: 03-03-2025 CBC W Auto Differential panel - Blood COMPLETE BLOOD COUNT AND DIFFERENTIAL Lab Routine Coronary artery disease involving [place] heart without angina pectoris, unspecified vessel or lesion type Expected: 12/02/2024, Expires: 03/03/2025 [facility] Work Phone: Comment on above: Expected: 12/02/2024 , Expires: 03/03/2025 Start: 12-02-2024 End: 03-03-2025 Comprehensive metabolic 2000 panel - Serum or Plasma COMPREHENSIVE METABOLIC PANEL Lab Routine Coronary artery disease involving [place] heart without angina pectoris, unspecified vessel or lesion type Expected: 12/02/2024, Expires: 03/03/2025 [facility] Comment on above: Expected: 12/02/2024 , Expires: 03/03/2025 Start: 12-02-2024 End: 03-03-2025 PSA/PROSTATE SPECIFIC ANTIGEN SCREENING PSA/PROSTATE SPECIFIC ANTIGEN SCREENING Lab Routine Screening for prostate cancer Expected: 12/02/2024, Expires: 03/03/2025 [facility] Comment on above: Expected: 12/02/2024 , Expires: 03/03/2025 Start: 11-26-2024 Influenza vaccination C [facility] Start: 10-16-2024 End: 10-16-2024 ambulatory 10/16/2024 10:00 AM EDT [facility] [address] [place] [address] Raymond Mccray Jr., MD [address] [facility] [place] [id number] [facility] Comment on above: [facility] Start: 09-25-2024 Annual PCP Team Financial Compliance Manager yandy Disease Visit Annual PCP Team Chronic Disease Visit [facility] Start: 09-24-2024 Influenza vaccination Influenza Vacc ine (#1) [facility] Comment on above: Postponed from 11/26 (Declined at this time) Start: 06-01-2024 End: 08-31-2024 Lipid 1996 panel - Serum or Plasma LIPID PANEL BASIC Lab Routine Coronary artery disease involving [place] heart without angina pectoris, unspecified vessel or lesion type Expected: 06/01/2024, Expires: 08/31/2024 [facility] Comment on above: Expected: 06/01/2024 , Expires: 08/31/2024 Start: 05-20-2024 Annual PCP Team Financial Compliance Manager yandy Disease Visit Annual PCP Team Chronic Disease Visit [facility] Start: 04-23-2024 End: 04-23-2024 Patient encounter procedure 04/23/2024 10:00 AM EST Office Visit [facility] [address] [place] [address] Raymond Lu MD [address] [place], [place] [id number] 6 mo f/u [facility] Comment on above: 6 mo f/u Start: 03-27-2024 Behavioral Health Screening Behavioral Health Screening [facility] Comment on above: Postponed from 03/28 (Declined at this time) Start: 03-22-2024 BP Controlled (<130/80) BP Controlle d (<130/80) [facility] Start: 03-22-2024 RSV Vaccine (1 - 1-d ose 60+ series) RSV Vaccine (1 - 1-dose 60+ series) [facility] Comment on above: Postponed from 07/10 (Declined at this time) Start: 03-22-2024 Urine microalbumin profile DTa P,Tdap,Td Vaccine (1 - Tdap) [facility] Comment on above: Postponed from 07/10 (Declined at this time) Start: 12-28-2023 PROSTATE CANCER SCRE ENING DISCUSSION PROSTATE CANCER SCREENING DISCUSSION [facility] Start: 12-28-2023 Prostate specific an tigen measurement Prostate Cancer Screening Discussion [facility] Start: 11-27-2023 Covid-19 Vaccine () Covid-19 Vaccine () [facility] Start: 11-27-2023 Influenza vaccination Influenza Vacc ine (#1) [facility] Start: 11-21-2023 End: 02-20-2024 Hemoglobin A1c in Blood HEMOGLOBIN A1C Lab Routine Hyperglycemia Expected: 11/21/2023, Expires: 02/20/2024 [facility] Work Phone: Comment on above: Expected: 11/21/2023 , Expires: 02/20/2024 Start: 10-13-2023 End: 10-13-2023 Patient encounter procedure 10/13/2023 11:00 AM EDT Office Visit [facility] [address] [place] [id number] Loraine Mcneill NP [address] [place], [place] [address] [facility] Start: 09-26-2023 End: 12-26-2023 CBC W Auto Differential panel - Blood COMPLETE BLOOD COUNT AND DIFFERENTIAL Lab Routine Primary hypertension Expected: 09/26/2023, Expires: 12/26/2023 [facility] Work Phone: Comment on above: Expected: 09/26/2023 , Expires: 12/26/2023 Start: 09-26-2023 End: 12-26-2023 Comprehensive metabolic 2000 panel - Serum or Plasma COMPREHENSIVE METABOLIC PANEL Lab Routine Primary hypertension Expected: 09/26/2023, Expires: 12/26/2023 [facility] Comment on above: Expected: 09/26/2023 , Expires: 12/26/2023 Start: 09-26-2023 End: 12-26-2023 Magnesium [Mass/volume] in Serum or Plasma MAGNESIUM Lab Routine Primary hypertension Expected: 09/26/2023, Expires: 12/26/2023 [facility] Comment on above: Expected: 09/26/2023 , Expires: 12/26/2023 Start: 09-26-2023 End: 12-26-2023 PSA/PROSTATE SPECIFIC ANTIGEN SCREENING PSA/PROSTATE SPECIFIC ANTIGEN SCREENING Lab Routine Screening for prostate cancer Expected: 09/26/2023, Expires: 12/26/2023 [facility] Comment on above: Expected: 09/26/2023 , Expires: 12/26/2023 Start: 08-09-2023 COLOGUARD (FIT-DNA) COLOGUARD (FIT-D NA) [facility] Start: 08-09-2023 COLORECTAL CANCER SCREENING COLORECTAL CANCER SCREENING [facility] Start: 08-09-2023 Screening for malign ant neoplasm of colon [facility] Start: 07-31-2023 DIABETES SCREEN DIABETES SCREEN [facility] Start: 03-28-2023 [facility] Start: 03-25-2023 Hepatitis B surface antibody level LDL CHOLESTEROL [facility] Start: 03-01-2023 ANNUAL PCP TEAM BILLER YANDY DISEASE VISIT ANNUAL PCP TEAM CHRONIC DISEASE VISIT [facility] Start: 11-26-2022 Influenza vaccination Influenza Vacc ine (#1) [facility] Start: 08-27-2022 Adult depression scr eening assessment DEPRESSION SCREENING [facility] Start: 08-27-2022 ANNUAL PCP TEAM BILLER YANDY DISEASE VISIT ANNUAL PCP TEAM CHRONIC DISEASE VISIT [facility] Start: 03-28-2022 Depression Assessment Depression Ass essment [facility] Start: 03-01-2022 End: 05-01-2022 CBC W Auto Differential panel - Blood CBC + DIFF Lab Routine Primary hypertension Hyperlipidemia, unspecified hyperlipidemia type Expected: 03/01/2022, Expires: 05/01/2022 [facility] Work Phone: Comment on above: Expected: 03/01/2022 , Expires: 05/01/2022 Start: 03-01-2022 End: 05-01-2022 Comprehensive metabolic 2000 panel - Serum or Plasma COMP METABOLIC PANEL Lab Routine Primary hypertension Hyperlipidemia, unspecified hyperlipidemia type Expected: 03/01/2022, Expires: 05/01/2022 [facility] Work Phone: Comment on above: Expected: 03/01/2022 , Expires: 05/01/2022 Start: 03-01-2022 End: 05-01-2022 Lipid 1996 panel - Serum or Plasma LIPID PANEL BASIC Lab Routine Primary hypertension Hyperlipidemia, unspecified hyperlipidemia type Expected: 03/01/2022, Expires: 05/01/2022 [facility] Work Phone: Comment on above: Expected: 03/01/2022 , Expires: 05/01/2022 Start: 11-26-2021 Influenza vaccination INFLUENZ A (Season Ended) [facility] Start: 08-27-2021 End: 08-27-2022 CBC W Auto Differential panel - Blood CBC + DIFF Lab Routine Hyperlipidemia, unspecified hyperlipidemia type Expected: 08/27/2021, Expires: 08/27/2022 [facility] Work Phone: Comment on above: Expected: 08/27/2021 , Expires: 08/27/2022 Start: 08-27-2021 End: 08-27-2022 Comprehensive metabolic 2000 panel - Serum or Plasma COMP METABOLIC PANEL Lab Routine Hyperlipidemia, unspecified hyperlipidemia type Expected: 08/27/2021, Expires: 08/27/2022 [facility] Work Phone: Comment on above: Expected: 08/27/2021 , Expires: 08/27/2022 Start: 08-27-2021 End: 08-27-2022 LIPID PANEL BASIC LIPID PANEL BASIC Lab Routine Hyperlipidemia, unspecified hyperlipidemia type Expected: 08/27/2021, Expires: 08/27/2022 [facility] Work Phone: Comment on above: Expected: 08/27/2021 , Expires: 08/27/2022 Start: 07-30-2021 Hepatitis B surface antibody level LDL CHOLESTEROL [facility] Start: 06-16-2021 COVID-19 VACCINE (3 - Booster for Lowell series) COVID-19 VACCINE (3 - Booster for [place] series) [facility] Start: 12-28-2019 FECAL OCCULT BLOOD FECAL OCCULT BLOO D [facility] Start: 12-28-2019 Screening for malign ant neoplasm of colon [facility] Start: 07-04-2017 End: 07-04-2017 Appointment Appointment [facility] Work Phone: Start: 06-27-2017 End: 12-30-2016 *Hepatic Function Panel *Hepatic Function Panel [facility] Work Phone: Start: 06-27-2017 End: 12-30-2016 Lipid 1996 panel *Lipid Profile CC PCP [facility] Work Phone: Start: 01-21-2017 End: 12-27-2016 *Hepatic Function Panel *Hepatic Function Panel [facility] Work Phone: Start: 01-21-2017 End: 12-27-2016 Lipid panel [AGGREGATE] *Lipid Profile CC PCP [facility] Work Phone: Start: 01-21-2017 End: 12-27-2016 *Hepatic Function Panel *Hepatic Function Panel [facility] Work Phone: Start: 01-21-2017 End: 12-27-2016 Lipid panel [AGGREGATE] *Lipid Profile CC PCP [facility] Work Phone: Start: 11-08-2016 End: 11-08-2016 Appointment Appointment [facility] Work Phone: Start: 11-08-2016 End: 11-08-2016 Appointment Appointment [facility] Work Phone: Start: 11-08-2016 End: 11-08-2016 Follow Up Appt 6 months Follow Up Appt 6 months [facility] Work Phone: Start: 11-08-2016 End: 11-08-2016 PFM PFM [facility] Work Phone: Start: 11-08-2016 End: 11-08-2016 Follow Up Appt 6 months Follow Up Appt 6 months [facility] Work Phone: Start: 11-08-2016 End: 11-08-2016 PFM PFM [facility] Work Phone: Start: 07-19-2016 End: 07-22-2016 *Hepatic Function Panel *Hepatic Function Panel [facility] Work Phone: Start: 07-19-2016 End: 07-22-2016 Lipid panel [AGGREGATE] *Lipid Profile CC PCP [facility] Work Phone: Start: 07-19-2016 End: 07-22-2016 *Hepatic Function Panel *Hepatic Function Panel [facility] Work Phone: Start: 07-19-2016 End: 07-22-2016 Lipid panel [AGGREGATE] *Lipid Profile CC PCP [facility] Work Phone: Start: 04-14-2016 End: 04-14-2016 Follow Up Appt 6 months Follow Up Appt 6 months [facility] Work Phone: Start: 04-14-2016 End: 04-14-2016 PFM PFM [facility] Work Phone: Start: 04-14-2016 End: 04-14-2016 Follow Up Appt 6 months Follow Up Appt 6 months [facility] Work Phone: Start: 04-14-2016 End: 04-14-2016 PFM PFM [facility] Work Phone: Start: 01-20-2016 End: 01-24-2016 *Hepatic Function Panel *Hepatic Function Panel [facility] Work Phone: Start: 01-20-2016 End: 01-24-2016 Lipid panel [AGGREGATE] *Lipid Profile CC PCP [facility] Work Phone: Start: 01-20-2016 End: 01-24-2016 *Hepatic Function Panel *Hepatic Function Panel [facility] Work Phone: Start: 01-20-2016 End: 01-24-2016 Lipid panel [AGGREGATE] *Lipid Profile CC PCP [facility] Work Phone: Start: 10-13-2015 End: 10-13-2015 Follow Up Appt 6 months Follow Up Appt 6 months [facility] Work Phone: Start: 10-13-2015 End: 10-13-2015 PFM PFM [facility] Work Phone: Start: 10-13-2015 End: 10-13-2015 Follow Up Appt 6 months Follow Up Appt 6 months [facility] Work Phone: Start: 10-13-2015 End: 10-13-2015 PFM PFM [facility] Work Phone: Start: 07-15-2015 End: 07-21-2015 *Hepatic Function Panel *Hepatic Function Panel [facility] Work Phone: Start: 07-15-2015 End: 07-21-2015 Lipid panel [AGGREGATE] *Lipid Profile CC PCP [facility] Work Phone: Start: 07-15-2015 End: 07-21-2015 *Hepatic Function Panel *Hepatic Function Panel [facility] Work Phone: Start: 07-15-2015 End: 07-21-2015 Lipid panel [AGGREGATE] *Lipid Profile CC PCP [facility] Work Phone: Start: 04-04-2015 End: 04-04-2015 Follow Up Appt 6 months Follow Up Appt 6 months [facility] Work Phone: Start: 04-04-2015 End: 04-04-2015 PF PF [facility] Work Phone: Start: 04-04-2015 End: 04-04-2015 Follow Up Appt 6 months Follow Up Appt 6 months [facility] Work Phone: Start: 04-04-2015 End: 04-04-2015 PF PFM [facility] Work Phone: Start: 01-07-2015 End: 01-13-2015 *Hepatic Function Panel *Hepatic Function Panel [facility] Work Phone: Start: 01-07-2015 End: 01-13-2015 Lipid panel [AGGREGATE] *Lipid Profile CC PCP [facility] Work Phone: Start: 01-07-2015 End: 01-13-2015 *Hepatic Function Panel *Hepatic Function Panel [facility] Work Phone: Start: 01-07-2015 End: 01-13-2015 Lipid panel [AGGREGATE] *Lipid Profile CC PCP [facility] Work Phone: Start: 10-11-2014 End: 01-13-2015 *Hepatic Function Panel *Hepatic Function Panel [facility] Work Phone: Start: 10-11-2014 End: 10-11-2014 Follow Up Appt 6 months Follow Up Appt 6 months [facility] Work Phone: Start: 10-11-2014 End: 01-13-2015 Lipid panel [AGGREGATE] *Lipid Profile CC PCP [facility] Work Phone: Start: 10-11-2014 End: 10-11-2014 PFM PFM [facility] Work Phone: Start: 10-11-2014 End: 01-13-2015 *Hepatic Function Panel *Hepatic Function Panel [facility] Work Phone: Start: 10-11-2014 End: 10-11-2014 Follow Up Appt 6 months Follow Up Appt 6 months [facility] Work Phone: Start: 10-11-2014 End: 01-13-2015 Lipid panel [AGGREGATE] *Lipid Profile CC PCP [facility] Work Phone: Start: 10-11-2014 End: 10-11-2014 PFM PFM [facility] Work Phone: Start: 06-10-2014 End: [...] 6 months Follow Up Appt 6 months [facility] Work Phone: Start: 04-12-2014 End: 04-12-2014 PFM PFM [facility] Work Phone: Start: 04-12-2014 End: 04-12-2014 Follow Up Appt 6 months Follow Up Appt 6 months [facility] Work Phone: Start: 04-12-2014 End: 04-12-2014 PFM PFM [facility] Work Phone: Start: 12-10-2013 End: 2014 *Hepatic Function Panel *Hepatic Function Panel [facility] Work Phone: Start: 12-10-2013 End: 12-10-2013 Follow Up Appt 4 months Follow Up Appt 4 months [facility] Work Phone: Start: 12-10-2013 End: 2014 Lipid panel [AGGREGATE] *Lipid Profile CC PCP [facility] Work Phone: Start: 12-10-2013 End: 12-10-2013 PF PF [facility] Work Phone: Start: 12-10-2013 End: 2014 *Hepatic Function Panel *Hepatic Function Panel [facility] Work Phone: Start: 12-10-2013 End: 12-10-2013 Follow Up Appt 4 months Follow Up Appt 4 months [facility] Work Phone: Start: 12-10-2013 End: 2014 Lipid panel [AGGREGATE] *Lipid Profile CC PCP [facility] Work Phone: Start: 12-10-2013 End: 12-10-2013 PFM PFM [facility] Work Phone: Start: 09-06-2013 End: 12-10-2013 *Hepatic Function Panel *Hepatic Function Panel [facility] [employer] [facility] Work Phone: Start: 09-06-2013 End: 09-06-2013 Follow Up Appt 3 months Follow Up Appt 3 months [facility] Work Phone: Start: 09-06-2013 End: 12-10-2013 Lipid panel [AGGREGATE] *Lipid Profile CC PCP [facility] Work Phone: Start: 09-06-2013 End: 09-06-2013 PFM PFM [facility] Work Phone: Start: 09-06-2013 End: 12-10-2013 *Hepatic Function Panel *Hepatic Function Panel [facility] [employer] [facility] Work Phone: Start: 09-06-2013 End: 09-06-2013 Follow Up Appt 3 months Follow Up Appt 3 months [facility] Work Phone: Start: 09-06-2013 End: 12-10-2013 Lipid panel [AGGREGATE] *Lipid Profile CC PCP [facility] [employer] [facility] Work Phone: Start: 09-06-2013 End: 09-06-2013 PFM PFM [facility] [employer] [facility] Work Phone: Start: 06-08-2013 End: 06-07-2013 *Hepatic Function Panel *Hepatic Function Panel [facility] [employer] Work Phone: Start: 06-08-2013 End: 06-08-2013 Arterial exam Arterial exam [facility] [employer] [facility] Work Phone: Start: 06-08-2013 End: 06-18-2013 Echocardiography Echocardiogram (complete) [facility] [employer] [facility] Work Phone: Start: 06-08-2013 End: 10-21-2016 Follow Up Appt 3 months Follow Up Appt 3 months [facility] Work Phone: Start: 06-08-2013 End: 06-07-2013 Lipid panel [AGGREGATE] *Lipid Profile CC PCP [facility] Work Phone: Start: 06-08-2013 End: 06-08-2013 Nuclear stress test -exercise Nuclear stress test -exercise [employer] Phone: Start: 06-08-2013 End: 10-21-2016 PFM PFM [facility] Work Phone: Start: 06-08-2013 End: 06-07-2013 *Hepatic Function Panel *Hepatic Function Panel [employer] Work Phone: Start: 06-08-2013 End: 06-08-2013 Arterial exam Arterial exam [facility] Work Phone: Start: 06-08-2013 End: 06-08-2013 Echocardiography Echocardiogram (complete) [facility] Work Phone: Start: 06-08-2013 End: 10-21-2016 Follow Up Appt 3 months Follow Up Appt 3 months [employer] Phone: Start: 06-08-2013 End: 06-07-2013 Lipid panel [AGGREGATE] *Lipid Profile CC PCP [facility] Work Phone: Start: 06-08-2013 End: 06-08-2013 Nuclear stress test -exercise Nuclear stress test -exercise [employer] Phone: Start: 06-08-2013 End: 10-21-2016 PFM PFM [facility] Work Phone: Start: 04-26-2013 End: 05-02-2013 *Hepatic Function Panel *Hepatic Function Panel [employer] Work Phone: Start: 04-26-2013 End: 10-21-2016 Cardiac Rehab Cardiac Rehab [facility] Work Phone: Start: 04-26-2013 End: 04-27-2013 Cardiovascular stress test using treadmill Treadmill stress test (no imaging) [employer] [facility] Phone: Start: 04-26-2013 End: 04-26-2013 Ecg routine ecg w/least 12 lds w/i&r EKG (In office) [employer] Phone: Start: 04-26-2013 End: 10-21-2016 Follow Up Appt 6 weeks Follow Up Appt 6 weeks [facility] Work Phone: Start: 04-26-2013 End: 05-02-2013 Lipid panel [AGGREGATE] *Lipid Profile CC PCP [facility] Work Phone: Start: 04-26-2013 End: 10-21-2016 PFM PFM [facility] Work Phone: Start: 04-26-2013 End: 05-02-2013 *Hepatic Function Panel *Hepatic Function Panel [facility] Work Phone: Start: 04-26-2013 End: 10-21-2016 Cardiac Rehab Cardiac Rehab [facility] Work Phone: Start: 04-26-2013 End: 04-26-2013 Cardiovascular stress test using treadmill Treadmill stress test (no imaging) [facility] Work Phone: Start: 04-26-2013 End: 04-26-2013 Electrocardiogram, complete EKG (In office) [facility] Work Phone: Start: 04-26-2013 End: 10-21-2016 Follow Up Appt 6 weeks Follow Up Appt 6 weeks [facility] Work Phone: Start: 04-26-2013 End: 05-02-2013 Lipid panel [AGGREGATE] *Lipid Profile CC PCP [facility] Work Phone: Start: 04-26-2013 End: 10-21-2016 PFM PFM [facility] Work Phone: Start: 2010 Pneumococcal Vaccine : 50+ (1 of 1 - PCV) Pneumococcal Vaccine: 50+ (1 of 1 - PCV) [facility] Start: 2005 Colonoscopy COLONOSCOPY [facility] Start: [address] COLONOGRAPHY [facility] Start: 2005 Screening for malign ant neoplasm of colon [facility] Start: 2005 SIGMOIDOSCOPY SIGMOIDOSCOPY [facility] Start: 07-11-1979 Urine microalbumin profile [facility] Start: 1978 Anxiety Screening Anxiety Screening [facility] Start: 1978 BP CONTROLLED (<130/80) BP CONTROLLE D (<130/80) [facility] Start: 1978 Depression Screening Depression Scre ening [facility] Start: 1960 Screening for malign ant neoplasm of colon [facility] COLOGUARD COLOGUARD Lab Ro kalyn Screening for colon cancer Ordered: 09/26/2023 [facility] Comment on above: Ordered: 09/26/2023 End: 03-31-2023 LUNG DIFFUSION CAPACITY (DLCO) LUNG DIFFUSION CAPACITY (DLCO) PFT Routine Cough, unspecified type 1 Occurrences starting 03/01/2022 until 03/31/2023 [facility] Work Phone: Comment on above: 1 Occurrences starti ng 03/01/2022 until 03/31/2023 End: 03-31-2023 LUNG VOLUMES LUNG VOLUMES PFT Routine Cough, unspecified type 1 Occurrences starting 03/01/2022 until 03/31/2023 [facility] Work Phone: Comment on above: 1 Occurrences starti ng 03/01/2022 until 03/31/2023 Patient Education [facility] Work Phone: End: 03-31-2023 SPIROMETRY - BASELINE AND POST DILATOR SPIROMETRY - BASELINE AND POST DILATOR PFT Routine Cough, unspecified type 1 Occurrences starting 03/01/2022 until 03/31/2023 [facility] Work Phone: Comment on above: 1 Occurrences starti ng 03/01/2022 until 03/31/2023 [facility] Immunizations Immunization Date Immunization Notes Care Provider [facility] 02-04-2023 Influenza, injectabl e, Madin [place] Canine Kidney, preservative free, quadrivalent Raymond Lu MD Work Phone: [facility] 02-04-2023 influenza virus vaccine, unspecified formulation Raymond Lu MD Work Phone: [facility] 03-01-2022 COVID-19 booster vaccine, age 12+ yr, bivalent (flexReceipts) Raymond Lu MD Work Phone: [facility] 03-01-2022 influenza, injectabl e, quadrivalent, contains preservative Raymond Lu MD Work Phone: [facility] 03-01-2022 influenza virus vaccine, unspecified formulation Raymond Lu MD Work Phone: [facility] 02-16-2021 COVID-19 vaccine, ag e 12+ yr ([facility] [employer] [facility] PURPLE TOP) Raymond Lu MD Work Phone: [facility] 07-04-2020 COVID-19 vaccine (LOWELL) Raymond Lu MD Work Phone: [facility] 06-22-2020 zoster vaccine recombinant Raymond Lu MD Work Phone: [facility] Work Phone: 01-24-2020 Influenza, injectabl e, Madin Ni Canine Kidney, preservative free, quadrivalent Raymond Lu MD Work Phone: [facility] 01-24-2020 zoster vaccine recombinant Raymond Lu MD Work Phone: [facility] Work Phone: Payers Date Payer Category Payer Private Health Insurance [id number] 2024 Unknown [id number] 2024 Unknown [id number] 2024 Self-pay 2021 Unknown [employer] PPO [id number] 2021-Present [phone] [address] [place] [address] [facility] [id number] 2021 Unknown [id number] 1960 Unknown [id number] 1960 Unknown [id number] 1959 Unknown [id number] Unknown [id number] Unknown [id number] Social History Date Type Detail Facility Start: 11-19-2010 End: 10-12-2022 Tobacco smoking status LAIS Never smoked tobacco [facility] Start: 02-11-2021 End: 06-01-2024 Alcohol intake Current non-drinker of alcohol (finding) [facility] Start: 1960 Sex Assigned At Not on file [facility] Start: 08-17-2021 End: 03-01-2022 Exposure to SARS-CoV-2 (event) Not sure [facility] Start: 11-19-2010 Tobacco use and exposure Smoke less tobacco non-user [facility] Work Phone: Start: 03-01-2022 History SDOH Alcohol Frequency 3 [facility] Start: 03-01-2022 History SDOH Alcohol Std Drinks 1 [facility] Start: 03-01-2022 History SDOH Social Connections Phone 98 [facility] Start: 03-01-2022 History SDOH Physica l Activity DPW 2 [facility] Start: 03-01-2022 History SDOH Financial 5 [facility] Start: 1960 Sex Assigned At Male C [facility] Start: 03-01-2022 End: 08-30-2022 History of Social function [facility] Start: 03-01-2022 End: 08-30-2022 Social connection and isolation panel [facility] In a typical week, h ow many times do you talk on the telephone with family, friends, or neighbors? Patient refused [facility] Are you now , , , , never or living with a partner? [facility] How often to you hav e a drink containing alcohol? 2-4 times a month [facility] How many standard dr inks containing alcohol do you have on a typical day? 1 or 2 [facility] How often do you hav e 6 or more drinks on 1 occasion? Never [facility] Do you feel stress - tense, restless, nervous, or anxious, or unable to sleep at night because your mind is troubled all the time - these days [OSQ] To some extent [facility] (I/We) worried isabel er (my/our) food would run out before (I/we) got money to buy more. Never true [facility] In the past 12 month s, was there a time when you were not able to pay the mortgage or rent on time? No [facility] Start: 03-01-2022 Gender identity Identifies as male gender (finding) [facility] Start: 10-12-2022 Tobacco use and exposure User of smokeless tobacco [facility] Start: 10-12-2022 End: 12-22-2023 Alcohol intake Current drinker of alcohol (finding) [facility] Start: 10-12-2022 Alcohol Comment Alcohol: 1 or 2 drinks on typical day/monthly or less. Caffeine: 1-2 cups/day [facility] How often to you hav e a drink containing alcohol? Monthly or less [facility] How hard is it for y ou to pay for the very basics like food, housing, medical care, and heating Not very hard [facility] Do you feel stress - tense, restless, nervous, or anxious, or unable to sleep at night because your mind is troubled all the time - these days [OSQ] Only a little [facility] Functional Status Date Assessment Result Facility 07-12-2014 Are you deaf, or do you have serious difficulty hearing No 07/12/2014 1:29 PM Marilia Moncada LPN No [facility] 07-12-2014 Are you blind, or do you have serious difficulty seeing, even when wearing glasses No 07/12/2014 1:29 PM Marilia Moncada LPN No [facility] 07-12-2014 Do you have serious difficulty walking or climbing stairs No 07/12/2014 1:29 PM EDT Marilia Jara LPN No [facility] 07-12-2014 Do you have difficul ty dressing or bathing No 07/12/2014 1:29 PM EDT Marilia Jara LPN No [facility] 07-12-2014 Because of a physica l, mental, or emotional condition, do you have difficulty doing errands alone such as visiting a physician's office or shopping No 07/12/2014 1:29 PM EDT Marilia Jara LPN No [facility] Mental Status Date Assessment Result Facility 07-12-2014 Because of a physica l, mental, or emotional condition, do you have serious difficulty concentrating, remembering, or making decisions No 07/12/2014 1:29 PM EDT Marilia Jara LPN No [facility] Clinical Notes 08-27-2021 to 12-18-2024 Telephone Encounter - Christine Patel LPN - 10/05/2024 10:05 AM EDTTelephone Encounter - Christine Patel LPN - 10/05/2024 10:05 AM EDTPatient InstructionsPatient Instructions Note Date & Type Note Facility 12-18-2024 Note HNO ID: [id number] Author: RAMILA YOST PA-C Service: ? Author Type: Physician Scientific Manager Type: Progress Notes Filed: 12/18/2024 14:25 Note Text: [facility] PATIENT CLINIC NOTE (M) Note was generated by [employer] and edited as appropriate SERVICE DATE: [...] Diagnosis Date CAD (coronary artery disease) Dr. uDron HTN (hypertension) Hyperlipidemia Lung nodule unchanged in [...] and Family: Three times a week Attends [employer] Services: Patient declined Active Member of [employer] [...] visit on 11/27 (more content not included)... [facility] 12-18-2024 Note HNO ID: [id number] Author: THALIA LU LPN Service: ? Author [...] the procedure well. Plan: Appointment with Ramila. [facility] 12-17-2024 Note HNO ID: [id number] Author: STEFANIE MILLER APRN.KATINA Service: ? Author Type: Nurse Practitioner Type: Progress Notes Filed: 12/17/2024 10:15 Note Text: [facility] New Patient Evaluation PATIENT NAME: Tuan Vega DATE OF SERVICE: December 16, 2024 Recording using TrackerSphere software for draft documentation of the visit was discussed with the patient/authorized corporate representative; all questions welcomed and answered. Patient/authorized corporate representative agreed to proceed CONSULTING PROVIDER: No [...] in the last few years with prior [facility] [place], found it extremely difficult [...] PS 4 cmH2O DME just switched from [facility] to [facility] [...] Signs: BP 127/75 (more content not included)... [facility] 12-14-2024 Note HNO ID: [id number] Author: RAYMOND LU MD Service: ? Author [...] type (E78.5) 3. Coronary artery disease involving ivanof bay heart without angina pectoris, unspecified vessel or [...] to patient) Raymond Lu MD Recording using TrackerSphere software for draft documentation of the visit was discussed with the patient/authorized corporate representative; all questions welcomed and answered. Patient/authorized corporate representative agreed to proceed [1] Social History Tobacco Use Smoking status: Never Smokeless tobacco: Never Substance (more content not included)... [facility] 10-05-2024 Telephone encounter Note LM for patient to see what DME he uses for cpap Christine Patel LPN [facility] 10-05-2024 Miscellaneous Notes LM for patient to see what DME he uses for cpap Christine Patel LPN documented in this encounter [facility] 08-21-2024 Telephone encounter Note Patient informed. Sophie Hawkins MA [facility] 08-21-2024 Miscellaneous Notes Patient informed. Sophie Hawkins [...] Suzanne Mason RN documented in this encounter [facility] 08-21-2024 Telephone encounter Note sent [facility] 08-21-2024 Telephone encounter Note Patient calling and states Dr. Gardner, his neurologist, has retired. Patient has appointment with Dr. Mccray on 10/16/2024. Patient is needing refills on Sertraline. Patient asking if PCP can send in refills enough to get him to his appointment with Dr. Mccray? Patient reports that he takes 100 mg once a day. Please review and advise, Suzanne Mason RN [facility] 06-01-2024 Instructions Raymond Lu MD - 06/01/2024 3:[address] Mccray is our sleep Dr. documented in this encounter [facility] 06-01-2024 Note HNO ID: [id number] Author: RAYMOND LU MD Service: ? Author [...] refill. ASSESSMENT/PLAN: 1. Coronary artery disease involving ivanof bay heart without angina pectoris, unspecified vessel or [...] TO ENT Kimberlyn (more content not included)... [facility] 06-01-2024 History of Present illness Narrative Patient [...] refill. ASSESSMENT/PLAN: 1. Coronary artery disease involving ivanof bay heart without angina pectoris, unspecified vessel or [...] Raymond Lu MD documented in this encounter [facility] 12-22-2023 History of Present illness Narrative Images [...] and return instructions. documented in this encounter [facility] 12-19-2023 Telephone encounter Note Patient calling he has appt in few weeks with Dr Navdeep Sharma, requesting recent lab results be faxed [phone]. Printed labs and faxed as requested. [facility] 12-19-2023 Miscellaneous Notes Patient calling he has appt in few weeks with Dr Navdeep Sharma, requesting recent lab results be faxed [phone]. Printed labs and faxed as requested. documented in this encounter [facility] 11-21-2023 Telephone encounter Note Labs are stable, other than sugar is up. Are we able to add an A1c? [facility] 11-21-2023 Miscellaneous Notes Labs are stable, other than sugar is up. Are we able to add an A1c? documented in this encounter [facility] 09-26-2023 Note Addended by: Valerie LU on: 09/26/2023 07:29 PM Modules accepted: Orders [facility] 09-26-2023 Miscellaneous Notes Addended by: RAYMOND LU on: 09/26/2023 07:29 PM Modules accepted: Orders documented in this encounter [facility] 09-26-2023 History of Present illness Narrative Patient presents with: 6 Month Exam HPI: [facility] Did not do his labs [...] tenderness ASSESSMENT/PLAN: 1. Coronary artery disease involving ivanof bay heart without angina pectoris, unspecified vessel or [...] months or prn. documented in this encounter [facility] 05-20-2023 Instructions Raymond Lu MD - 05/20/2023 [...] of LAGEVRIO during to this registry at [email or web address] or . For individuals who are sexually [...] virus. COVID-19 illnesses have ranged from very xnpj-gs-fugfqf, including illness resulting in . While information [...] serious illnesses Take any medicines including prescription, diqb-mhk-lemnkdw medicines, vitamins, and herbal products. How do [...] NG or OG that is size 12 Nigerian (FR) or larger. If you miss a [...] of LAGEVRIO during to this registry at [email or web address] or . For individuals who are sexually [...] virus. COVID-19 illnesses have ranged from very zsle-sb-kpuurw, including illness resulting in . While information [...] serious illnesses Take any medicines including prescription, wzkq-fwj-hkepkgo medicines, vitamins, and herbal products. How do [...] NG or OG that is size 12 Nigerian (FR) or larger. If you miss a [...] treat people with COVID-19. Go to https://www.fda.gov/emergency-pre ieotixsev-jca-lnknoedd/mcm-legalr sgaxiyjkw-iat-eezbkp-framework/em yhhlato-tqv-ekoqlxsuhmlzr for more information. It is your choice [...] to FDA MedWatch at www.fda.gov/medwatch or call 4-991-ZEX-3082 (1300.240.5450). How should I store LAGEVRIO? Store LAGEVRIO capsules at room temperature between 68 F to 77 F (20 C to 25 C). Keep LAGEVRIO and all medicines out of the reach of children. How can I learn more about COVID-19? Ask your healthcare provider. Visit www.cdc.gov/COVID19 Contact your local or state public health department. Call [employer] at (toll free in the [place] Visit www.Living L[employer] What Is an Emergency Use Authorization (EUA)? The [place] FDA has made LAGEVRIO available under an emergency access mechanism called an Emergency Use Authorization (EUA) The EUA is supported by a Program Advocate of Health and Human Service (HHS) declaration that circumstances exist to justify emergency use of drugs and biological products during the COVID-19 pandemic. LAGEVRIO for the treatment of adults with a current diagnosis of vgmy-lz-csvmbkim COVID-19 who are at high risk for [...] be used under the EUA). Kendra. for: [employer] [place] [address] For patent information: www.Dayima/research/patent Copyright [employer] Inc., [facility] and its affiliates. All rights reserved. [id number] Revised: April 2022 documented in this encounter [facility] 05-20-2023 History of Present illness Narrative Patient [...] visit. Either the patient or their legal corporate representative has been informed of the risks [...] Had went to a golf tournament in [facility] and slept on his side. No chest [...] 11:57 AM Molnupiravir Eligibility and Patient Discussion [facility] Formulary Restriction Criteria: Adult outpatients 18 years [...] 2023 12:07 PM documented in this encounter [facility] 05-10-2023 Telephone encounter Note Pt called for refill of Sertraline, he said he picked up last script on 04/08/23 for qty 30 w/no refills But a script for 90 tablets w/1 refill was sent to [facility] on 04/11/23 He is calling [facility] for refill now [facility] 05-10-2023 Miscellaneous Notes Pt called for refill of Sertraline, he said he picked up last script on 04/08/23 for qty 30 w/no refills But a script for 90 tablets w/1 refill was sent to [facility] on 04/11/23 He is calling [facility] for refill now documented in this encounter [facility] 12-10-2022 Miscellaneous Notes No future visit scheduled No showed 08/30/22 Never filled metoprolol. Gets it filled at [facility] Needs appt with Dr Lu [...] by mouth twice daily. Please sent to [facility] [address] in [place] Please review and advise. Carolina Longoria documented in this encounter [facility] 03-23-2022 History of Present illness Narrative PULM FUNCTION SMARTBLOCK: Provider: Raymond Lu MD Assisting Tech: BAILEY Mckeon Spirometry w/BD: 1 DLCO: 1 LV - Box: 1 documented in this encounter [facility] 03-01-2022 History of Present illness Narrative Patient presents with: 6 Month Exam HPI: Patient presents today for office visit for follow up. HTN: Compliant with meds No chest pain No shortness of breath No headaches No dizziness No edema ALEXANDRA/RLS: Seeing Dr. Gardner with [facility]. Has not seen in quite awhile. On BiPAP. Using Gabapentin at a lower dose. Working well. Started on Sertraline 100 mg at night. Sleeping ok. Would like to discuss seeing Dr. Mccray here at [place]. Cardiology: Sees Dr. Duron. HLD: Due for labs MEDICATIONS: Current Outpatient Medications Medication Sig sertraline (ZOLOFT) 100 mg tablet Take 100 mg by mouth. losartan (COZAAR) 100 mg tablet Take 1 tablet by mouth once daily. EPINEPHrine (EPIPEN) 0.3 mg/0.3 mL auto-injector Use as directed gabapentin (NEURONTIN) 300 mg capsule Take 300 mg by mouth daily at bedtime. 100-300 each night per [facility] COMPOUNDED PRESCRIPTION Initiate bilevel @ 18/14 [...] immunization - ICD9: V03.89, ICD10: Z23 - [employer] COVID-19 BIVALENT BOOSTER VACCINE, AGE 12+ YR 3. Coronary artery disease involving ivanof bay heart without angina pectoris, unspecified vessel or [...] Raymond Lu MD documented in this encounter [facility] 08-27-2021 History of Present illness Narrative Patient [...] daily at bedtime. 100-300 each night per [facility] clopidogrel 75 mg tablet Take 75 [...] continue meds. 3. Coronary artery disease involving ivanof bay heart without angina pectoris, unspecified vessel or [...] months and prn. documented in this encounter [facility] Evaluation note Diagnosis Primary hypertension- Primary Unspecified essential hypertension RLS (restless legs syndrome) Restless legs syndrome (RLS) Coronary artery disease involving ivanof bay heart without angina pectoris, unspecified vessel or lesion type Hyperlipidemia, unspecified hyperlipidemia type Sleep apnea, unspecified type [facility]* Diagnosis Primary hypertension- Primary Unspecified essential hypertension Encounter for immunization Need for other specified prophylactic vaccination against single bacterial disease Coronary artery disease involving ivanof bay heart without angina pectoris, unspecified vessel or lesion type Hyperlipidemia, unspecified hyperlipidemia type Sleep apnea, unspecified type RLS (restless legs syndrome) Restless legs syndrome (RLS) Need for influenza vaccination Need for prophylactic vaccination and inoculation against influenza Cough, unspecified type [facility]* Diagnosis Cough, unspecified type documented [facility]* Diagnosis Cough, unspecified type documented [facility]* Diagnosis COVID-19- Primary documented in this [facility]* Diagnosis Coronary artery disease involving ivanof bay heart without angina pectoris, unspecified vessel or lesion type- Primary RLS (restless legs syndrome) Restless legs syndrome (RLS) Primary hypertension Unspecified essential hypertension Hyperlipidemia, unspecified hyperlipidemia type Sleep apnea, unspecified type Screening for colon cancer Special screening for malignant neoplasms, colon Screening for prostate cancer Special screening for malignant neoplasm of prostate documented in this encounter [facility]* Diagnosis Hyperglycemia- Primary Other abnormal glucose documented [facility] this encounter [facility]* Diagnosis ALEXANDRA (obstructive sleep apnea)- Primary Obstructive sleep apnea (adult) (pediatric) Insomnia, unspecified type [facility] Diagnosis Coronary artery disease involving ivanof bay heart without angina pectoris, unspecified vessel or [...] hearing loss type [facility] Outpatient Procedure (Routine) - Pending Review Specialty Diagnoses / Procedures Referred By Orlin christy Referred To [facility] [place] Diagnoses Cough, unspecified type Procedures LUNG VOLUMES Raymond Lu MD [address] [place] [address] [address] Referral ID Status Reason Start Date Expiration Date Visits Requested Visits Authorized [id number] Pending Review Auto-Generat ed Referral 03/01/2022 03/31/2023 1 1 * Outpatient Procedure (Routine) - Authorized Specialty Diagnoses / Procedures Referred By Orlin christy Referred To [facility] [place] Diagnoses Cough, unspecified type Procedures LUNG DIFFUSION CAPACITY (DLCO) [place] [address] [place] [address] [address] [address] Referral ID Status Reason Start Date Expiration Date Visits Requested Visits Authorized [id number] Authorized Auto-Generat ed Referral 03/01/2022 03/31/2023 1 1 * Outpatient Procedure (Routine) - Authorized Specialty Diagnoses / Procedures Referred By Orlin christy Referred To [facility] Diagnoses Cough, unspecified type Procedures SPIROMETRY - BASELINE AND POST DILATOR BRNCDILAT RSPSE SPMTRY PRE&[place] [address] [place] [id number] [address] Referral ID Status Reason Start Date Expiration Date Visits Requested Visits Authorized [id number] Authorized Auto-Generat ed Referral 03/01/2022 03/31/2023 1 1 [facility] Advance Directives No Advanced Directives Records FoundDocuments on File 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 Date 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 Advance Directive(s) Summary Purpose Family [...] or prosecute any alcohol or drug abuse patient.[facility] the event this information is protected by the Federal Confidentiality of Alcohol and Drug Abuse Patient Records regulations: The Federal rules restrict any use of the information to criminally investigate or prosecute any alcohol or drug abuse patient.[facility] the event this information is protected by the Federal Confidentiality of Alcohol and Drug Abuse Patient Records regulations: The Federal rules restrict any use of the information to criminally investigate or prosecute any alcohol or drug abuse patient.[facility] the event this information is protected by the Federal Confidentiality of Alcohol and Drug Abuse Patient Records regulations: The Federal rules restrict any use of the information to criminally investigate or prosecute any alcohol or drug abuse patient.[facility] the event this information is protected by the Federal Confidentiality of Alcohol and Drug Abuse Patient Records regulations: The Federal rules restrict any use of the information to criminally investigate or prosecute any alcohol or drug abuse patient.[facility] the event this information is protected by the Federal Confidentiality of Alcohol and Drug Abuse Patient Records regulations: The Federal rules restrict any use of the information to criminally investigate or prosecute any alcohol or drug abuse patient.[facility] the event this information is protected by the Federal Confidentiality of Alcohol and Drug Abuse Patient Records regulations: The Federal rules restrict any use of the information to criminally investigate or prosecute any alcohol or drug abuse patient.[facility] the event this information is protected by the Federal Confidentiality of Alcohol and Drug Abuse Patient Records regulations: The Federal rules restrict any use of the information to criminally investigate or prosecute any alcohol or drug abuse patient.[facility] the event this information is protected by the Federal Confidentiality of Alcohol and Drug Abuse Patient Records regulations: The Federal rules restrict any use of the information to criminally investigate or prosecute any alcohol or drug abuse patient.[facility] the event this information is protected by the Federal Confidentiality of Alcohol and Drug Abuse Patient Records regulations: The Federal rules restrict any use of the information to criminally investigate or prosecute any alcohol or drug abuse patient.[facility] the event this information is protected by the Federal Confidentiality of Alcohol and Drug Abuse Patient Records regulations: The Federal rules restrict any use of the information to criminally investigate or prosecute any alcohol or drug abuse patient.[facility] the event this information is protected by the Federal Confidentiality of Alcohol and Drug Abuse Patient Records regulations: The Federal rules restrict any use of the information to criminally investigate or prosecute any alcohol or drug abuse patient.[facility] the event this information is protected by the Federal Confidentiality of Alcohol and Drug Abuse Patient Records regulations: The Federal rules restrict any use of the information to criminally investigate or prosecute any alcohol or drug abuse patient.[facility] the event this information is protected by the Federal Confidentiality of Alcohol and Drug Abuse Patient Records regulations: The Federal rules restrict any use of the information to criminally investigate or prosecute any alcohol or drug abuse patient.[facility] the event this information is protected by the Federal Confidentiality of Alcohol and Drug Abuse Patient Records regulations: The Federal rules restrict any use of the information to criminally investigate or prosecute any alcohol or drug abuse patient.[facility] Reason for Visit (unrecogniz ed section and [...] SPMTRY PRE&POST-BRNCDILAT ADMN Raymond Lu MD [address] [place] [address] [facility] [place] [address] [place], [place] [id number] Referral ID Status Reason Start Date Expiration Date V isits Requested Visits Authorized [id number] Closed Auto-Generate d Referral 03/01/2022 03/31/2023 1 1 Specialty Diagnoses / Procedures Referred By Contac t Referred To Contact [facility] Diagnoses Cough, unspecified type Procedures LUNG VOLUMES Raymond Lu MD [address] [place] [address] [facility] [address] [place], [place] [id number] Referral ID Status Reason Start Date Expiration Date V isits Requested Visits Authorized [id number] Closed Auto-Generate d Referral 03/01/2022 03/31/2023 1 1 Specialty Diagnoses / Procedures Referred By Contac t Referred To Contact [facility] Diagnoses Cough, unspecified type Procedures LUNG DIFFUSION CAPACITY (DLCO) DIFFUSING CAPACITY Raymond Lu MD [address] [place] [address] [facility] [address] [place], [place] [id number] Referral ID Status Reason Start Date Expiration Date V isits Requested Visits Authorized [id number] Closed Auto-Generate d Referral 03/01/2022 03/31/2023 1 1 Reason Onset Date Comments Refill Request 12/10/2022 Reason Comments Follow Up Specialty Diagnoses / Procedures Referred By Contac t Referred To Contact [facility] Diagnoses Physical Procedures physical Raymond Lu MD [address] [place] [address] [facility] [address] [place] [address] Referral ID Status Reason Start Date Expiration Date Visits Requested Visits Authorized [id number] Pending Review OON/Self Pay Override 3 08/21/2023 1 1 Reason Comments 6 Month Exam Specialty Diagnoses / Procedures Referred By Orlin christy Referred To Contact [facility] Diagnoses Follow-up exam Procedures OFFICE CONSULTATION NEW/ESTAB PATIENT 15 MIN Raymond Lu MD [address] [place] [address] [place] [address] [address] [place] [address] Referral ID Status Reason Start Date Expiration Date Visits Requested Visits Authorized [id number] Pending Review OON/Self Pay Override 09/25/2023 01/02/2025 1 1 Reason Comments Results Reason Comments fax copy of labs to [facility] Reason Comments Sleep Apnea Reason Comments 6 Month Exam Reason Onset Date Comments Medication Request 08/21/2024 Reason Comments cpap compliance Care Teams (unrecognized sec tion and content) Shactor Helper Relationship Specialty Start Date End Date Raymond Lu MD [address] [place], [place] [id number] PCP - General Family Practice 06/25/13 Steven Duron [address] [place] [phone] Cardiology 01/22/16 Shactor Helper Relationship Specialty Start Date End Date Raymond Lu MD [address] [place], [place] [id number] PCP - General Family Medicine 06/25/13 Steven Duron [address] [phone] Cardiology 01/22/16 Shactor Helper Relationship Specialty Start Date End Date Raymond Lu MD [address] [place], [place] [id number] PCP - General Family Medicine 06/25/13 Steven Duron [address] [place] [phone] Cardiology 01/22/16 Shactor Helper Relationship Specialty Start Date End Date Raymond Lu MD [address] [facility] [place] [address] PCP - General Family Medicine 06/25/13 Steven Duron [address] [place] [address] Cardiology 01/22/16 Shactor Helper Relationship Specialty Start Date End Date Raymond Lu MD [address] [facility] [place] [address] PCP - General Family Medicine 06/25/13 [address]on [address] [place] [address], [place] [phone] Cardiology 01/22/16 Shactor Helper Relationship Specialty Start Date End Date Raymond Lu MD [address] [facility] [place] [address] PCP - General Family Medicine 06/25/13 Steven Duron MD [address] [place] [address], [place] [address] Cardiology 01/22/16 Shactor Helper Relationship Specialty Start Date End Date Raymond Lu MD [address] [place] [address] PCP - General Family Medicine 06/25/13 Steven Duron MD [address] [place] [address] Cardiology 01/22/16 Shactor Helper Relationship Specialty Start Date End Date Raymond Lu MD [address] [place] [address] PCP - General Family Medicine 06/25/13 Steven Duron MD [address] [place] [address] Cardiology 01/22/16 Shactor Helper Relationship Specialty Start Date End Date Raymond Lu MD [address] [place] [address] PCP - General Family Medicine 06/25/13 Steven Duron MD [address] [address] Cardiology 01/22/16 Shactor Helper Relationship Specialty Start Date End Date Raymond Lu MD [address] [place] [address] PCP - General Family Medicine 06/25/13 Steven Duron MD [address] [address] Cardiology 01/22/16 Shactor Helper Relationship Specialty Start Date End Date Raymond Lu MD [address] [place] [address] PCP - General Family Medicine 06/25/13 Steven Duron MD [address] [place] [address] Cardiology 01/22/16 Leah Haddad APRN.INSIDE STEWARD/STEWARDESS [address] [place] [address] [facility] 03/05/24 Ayesha Boggs APRN.INSIDE STEWARD/STEWARDESS [address] [place] [address] [facility] 03/05/24 Shactor Helper Relationship Specialty Start Date End Date Raymond Lu MD [address] [facility] [place] [address] PCP - General Family Medicine 06/25/13 Steven Duron MD [address] [place] [address] Cardiology 01/22/16 Leah Haddad PACKAGE LINE RELIEF OPERATOR.INSIDE STEWARD/STEWARDESS [address] [facility] [address] [facility] 03/05/24 Ayesha Boggs APRN.INSIDE STEWARD/STEWARDESS [address] [place] [address] [facility] 03/05/24 Shactor Helper Relationship Specialty Start Date End Date Raymond Lu MD [address] [facility] [place] [place] [address] PCP - General Family Medicine 06/25/13 Steven Duron MD [address] [place] [address] Cardiology 01/22/16 Leah Haddad PACKAGE LINE RELIEF OPERATOR.INSIDE STEWARD/STEWARDESS [address] [place] [address] [facility] 03/05/24 Ayesha Boggs APRN.INSIDE STEWARD/STEWARDESS [address] [place], [place] [address] [facility] 03/05/24 Shactor Helper Relationship Specialty Start Date End Date Raymond Lu MD [address] [place] [address] PCP - General Family Medicine 06/25/13 Steven Duron MD [address] [id number] Cardiology 01/22/16 Leah Haddad APRN.INSIDE STEWARD/STEWARDESS [address] [place] [address] [facility] 03/05/24 Ayesha Boggs PACKAGE LINE RELIEF OPERATOR.INSIDE STEWARD/STEWARDESS [address] [place], [place] [address] [facility] 03/05/24 (unrecognized sect ion and content) No Status Records FoundNo Status Records FoundNo Status Records FoundNo Status Records FoundNo Status Records Found INFORMATION SOURCE (unrecogn ized section and content) DATE CREATED AUTHOR 11/12/2022 [facility] DATE CREATED AUTHOR AUTHOR'S ORGANIZ ATION 04/11/2023 [facility] DATE CREATED AUTHOR AUTHOR'S ORGANIZ ATION 10/17/2024 [facility] DATE CREATED AUTHOR AUTHOR'S ORGANIZ ATION 10/21/2024 [facility] DATE CREATED AUTHOR AUTHOR'S ORGANIZ ATION 12/28/2024 [facility] FOR RECORDS PERTAINING TO PATIENTS WHO ARE [...] BE BASED ON THE PRIMARY CLINICAL RECORDS. [facility] [employer] [facility]. provides no warranty or guarantee of the accuracy or completeness of information in this document.
--- NOTE | 2025-03-20 07:25 | ECHOD_ITS ---
Reason For Study Reason For Study: CAD/ASHD Procedure This was a 2D Doppler, Color Flow transthoracic echocardiogram. Exam performed in department. Left Ventricle Normal LV size. Mild concentric left ventricular hypertrophy. Posterior and inferior hypokinesis. Estimated LVEF 55%. Stage I diastolic dysfunction. Right Ventricle Normal right ventricle. Atria The left and right atria are normal. Mitral Valve Trivial mitral valve insufficiency. Tricuspid Valve Trivial tricuspid valve insufficiency. Normal pulmonary artery pressure. Aortic Valve Trisinus/trileaflet aortic valve. Mild focal thickening of the noncoronary cusp of the aortic valve. There is no aortic stenosis. No aortic valve insufficiency. Pulmonic Valve The pulmonic valve is not well visualized. Trivial pulmonic valve insufficiency. Great Vessels Normal sized aortic root. Pericardium/Pleural Trivial pericardial effusion. MMode/2D Measurements & Calculations LVIDd: 4.6 cm IVSd: 1.3 cm Ao root diam: 3.2 cm LVIDs: 2.9 cm LVPWd: 1.3 cm RVDd: 4.0 cm FS: 37.8 % LAV(MOD-bp): 49.5 ml LVAd ap4: 34.1 cm2 LVAd ap2: 34.2 cm2 LAV(MOD-bp) Indexed: 21.6 ml/m2 LVLd ap4: 8.5 cm LVLd ap2: 9.1 cm LAV(MOD-sp2): 43.6 ml EDV(MOD-sp4): 117.1 ml EDV(MOD-sp2): 111.9 ml LAV(MOD-sp4): 43.5 ml EDV(sp4-el): 115.9 ml EDV(sp2-el): 109.5 ml LVAs ap4: 20.9 cm2 LVAs ap2: 20.9 cm2 LVLs ap4: 7.5 cm LVLs ap2: 7.7 cm ESV(MOD-sp4): 53.8 ml ESV(MOD-sp2): 49.1 ml ESV(sp4-el): 49.8 ml ESV(sp2-el): 48.6 ml EF(MOD-sp4): 54.1 % EF(MOD-sp2): 56.2 % EF(sp4-el): 57.0 % SV(MOD-sp4): 63.3 ml SV(MOD-sp2): 62.8 ml EDV(MOD-bp): 117.6 ml SI(MOD-sp4): 27.6 ml/m2 SI(MOD-sp2): 27.4 ml/m2 ESV(MOD-bp): 51.6 ml EF(MOD-bp): 56.1 % SV(sp4-el): 66.1 ml LA dimension(2D): 4.1 cm LA A4 area: 15.2 cm2 RA A4 area: 18.3 cm2 TAPSE: 2.6 cm Time Measurements MV dec time: 0.22 sec Doppler Measurements & Calculations MV E max león: 62.1 cm/sec Lat Peak E' León: 8.8 cm/sec Med Peak E' León: 7.2 cm/sec MV A max león: 81.4 cm/sec E/E' lat: 7.0 E/E' med: 8.6 MV E/A: 0.76 MV V2 max: 94.9 cm/sec MV P1/2t max león: 72.5 cm/sec Ao V2 max: 128.9 cm/sec MV max P.6 mmHg MV P1/2t: 76.9 msec Ao max P.6 mmHg MV V2 mean: 48.3 cm/sec Ao V2 mean: 85.5 cm/sec MV mean P.1 mmHg MV dec slope: 275.9 cm/sec2 Ao mean P.4 mmHg MV V2 VTI: 29.3 cm MVA(P1/2t): 2.9 cm2 Ao V2 VTI: 27.0 cm AV (velocity ratio): 0.83 LV V1 max: 102.7 cm/sec PA V2 max: 124.2 cm/sec TR max león: 228.0 cm/sec LV V1 max P.2 mmHg TR max P.8 mmHg LV V1 mean P.3 mmHg LV V1 mean: 70.4 cm/sec LV V1 VTI: 22.5 cm ECHO/Echo Complete Interpretation Summary Mild concentric left ventricular hypertrophy. Posterior and inferior hypokinesis. Estimated LVEF 55%. Stage I diastolic dysfu nction. Mild focal thickening of the noncoronary cusp of the aortic valve. Trivial pericardial effusion. Ordering Physician: Billy Alonso Referring Physician: Raymond Franks Performed By: Alycia Sood, RIAZCS, RVT
[2025-03-20 08:01] LABS: AST(SGOT) 66 U/L (<=37); Alanine Aminotransfer ALT/SGPT 119 U/L (<=46)
== END | disposition home or self-care (01) ==
LOC: CVS 07:18
PROVIDERS: PCP Family Medicine; Referring Provider Internal Medicine Cardiovascular Disease; Visit Provider Internal Medicine Cardiovascular Disease
DX: I25.10 Atherosclerotic heart disease of native coronary artery without angina pectoris (principal); I25.5 Ischemic cardiomyopathy; I10 Essential (primary) hypertension; E78.5 Hyperlipidemia, unspecified; E66.9 Obesity, unspecified; Z95.5 Presence of coronary angioplasty implant and graft
CPT/HCPCS: 36415; 84450; 84460; 93306